=== PATIENT | male | born 1935 | race Caucasian/White ===

== ENCOUNTER → 2019-05-12 | Outpatient (CLI) | payer MEDICARE, OTHER, SELFPAY | PROVIDERS: Family Provider Family Medicine; Visit Provider Urology | DX: Z96.0 Presence of urogenital implants (principal) | CPT/HCPCS: 74018 ==

== ENCOUNTER 2019-05-14 11:26 | Day surgery (SDC) | payer MEDICARE, OTHER, SELFPAY ==
[2019-05-13 08:53] VITALS: BMI 22.6
--- NOTE | 2019-05-14 | SCC_ITS ---
Procedure Done: Cystoscopy, bilateral ureteral stent exchange Implants: 8 Fijian by 28 cm double-pigtail ureteral stents Specimens removed/disposition: Ureteral stents 29.5 seconds of fluoroscopic guidance, for a cumulative dose of 5.94 mGy, was provided to Dr. Tolbert by the radiology department. C-arm images of the abdomen were saved for the patient's permanent record. [facility]
--- NOTE | 2019-05-14 12:56 | ANES.PREANES ---
Pre-Anesthetic Assessment Pre-Anesthetic Assessment: Height/Weight: Height 1.78 m Weight 71.668 kg Proposed Procedure: Operation Date: 05/14/19 13:00 Proposed Procedures p Cystoscopy(Not Applicable) - Johnathon Tolbert MD s Ureteral Stent Exchange(Bilateral) - Johnathon Tolbert MD Last intake: Intake Last Liquid Date 05/14/19 Last Liquid Time 07:00 Last Solid Date 05/13/19 Last Solid Time 17:30 Social: Social History: No alcohol and No tobacco Exam: Pre-Anes Outpt Exam: alert, oriented x 3, clear to auscultation bilaterally and regular rate & rhythm Airway: Submandibular: WNL Cervical ROM: WNL MP: 1 Additional comments: teeth poor Pulmonary: Pulmonary: CHILD CV/HEM: Comments: AVR ascending aortic aneurisum : : Chronic renal Insufficiency Hepatic: Hepatic: None reported GI: GI: GERD Metabolic: Metabolic: Hyperlipidemia Musc/skel: Musc/skel: OA/DJD Neuropsych: Neuropsych: Anxiety, Depression and TIA Anesthetic Plan: ASA status: IV Anesthesia: Anesthesia Evaluation and General Risk of > 500 ml blood loss (7ml/kg in children): No PFSH Anesthesia PFSH: Medical History (Updated 05/14/19 @ 12:58 by Keyon Cifuentes MD) Abdominal aortic aneurysm (AAA) (Acute) Acute renal failure (Acute) Anemia (Acute) Aneurysm (Acute) Aortic regurgitation (Acute) Bacteremia (Acute) Bilateral ureteral obstruction (Acute) Bladder outlet obstruction (Acute) Carotid arterial disease (Acute) Carpal tunnel syndrome (Acute) Chest pain (Acute) Chronic cystitis (Acute) Chronic kidney disease (CKD) (Acute) Chronic neck pain (Acute) Chronic neck pain with history of cervical spinal surgery (Acute) Chronic UTI (urinary tract infection) (Acute) COPD (chronic obstructive pulmonary disease) (Acute) CVA (cerebral vascular accident) (Acute) Dyslipidemia (Acute) Dyspnea on effort (Acute) Gastroesophageal reflux (Acute) History of rib fracture (Acute) Hypertension (Acute) Malaise (Acute) Osteoarthritis (Acute) Peripheral vascular disease (Acute) Renal artery stenosis (Acute) Sepsis (Acute) Status post endoscopic repair of thoracic aortic aneurysm (TAA) (Acute) Superior mesenteric artery stenosis (Acute) Syncope (Acute) TIA (transient ischemic attack) (Acute) Surgical History (Updated 05/14/19 @ 12:58 by Keyon Cifuentes MD) H/O aortic valve replacement (Acute) H/O endarterectomy (Acute) H/O rotator cuff surgery (Acute) History of aortic valve replacement with bioprosthetic valve (Acute) History of carotid endarterectomy (Acute) History of cataract extraction (Acute) History of endovascular stent graft for abdominal aortic aneurysm (AAA) (Acute) History of ureter stent (Acute) Hx of appendectomy (Acute) Hx of transurethral resection of prostate (Acute) Family History (Updated 05/13/19 @ 08:52 by Ayla Pascual) Father Heart attack CAD (coronary artery disease) Social History (Updated 05/13/19 @ 08:52 by Ayla Pascual) Smoking and tobacco status: former smoker Quit status (tobacco): has quit using tobacco Alcohol intake: never Substance/Drug Use: never Data Anesthesia Cardiac Studies: No Data to Display
[2019-05-14 13:08] VITALS: BP 157/100; PULSE 63; RESP 20; TEMP 36.8; O2SAT 97
[2019-05-14] MEDS: sodium chloride 0.9% 1,000 ML 30 ML IV (13:19)
--- NOTE | 2019-05-14 13:20 | PM.OP ---
Operative Report Post-Operative Note: Date of procedure: 05/14/19 Preop Diagnosis: Bilateral ureteral obstruction Post-op diagnosis: same Post-op Findings: Stents changed without difficulty Procedure Done: Cystoscopy, bilateral ureteral stent exchange Implants: 8 Jordanian by 28 cm double-pigtail ureteral stents Specimens removed/disposition: Ureteral stents Pathology: none sent Surgeon: Johnathon Tolbert Anesthesia: MAC Estimated blood loss (mL): 0 Complications: None Findings: No severe encrustation Stent removed without difficulty Condition: stable Disposition: PACU Operative Report: Brief History: 83-year-old white male with 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 Has elected to continue chronic indwelling ureteral stents as long-term management protocol Procedure: After routine preoperative evaluation examination and obtaining of informed consent he was taken to the operating suite on 05/14/2019 where MAC was administered without difficulty. Prepped and draped in usual sterile fashion in dorsolithotomy position pain careful attention to avoiding pressure points. 21 Jordanian cystoscope with 30 degree lens was introduced into the urethral meatus. Bladder was systematically examined. Stents were in expected position. No severe encrustation. Grasping forceps were then utilized to remove the stents after passing of a flexible guidewire next to each stent sequentially. Each stent was replaced with similar size 8 Jordanian by 28 cm double-pigtail stent without difficulty. Bladder drained and procedure completed. Tolerated procedure well without complications and was awakened in the operating room and returned recovery in stable condition. PLANS: 1. Follow-up in about 3 months with [facility]. Sooner for concerns regarding stent function. Coding Level of Care Code Acute Art Therapy Certified Supervisor for Bia Reynoso
[2019-05-14 13:22] LABS: Basophils % 0.4 %; Eosinophils # 0.2 10^3/uL (0.0-0.8); Eosinophils % 3.5 %; Hematocrit 34.3 % (42.0-52.0); Hemoglobin 9.7 g/dL (11.7-16.6); Lymphocytes # 1.3 10^3/uL (0.8-4.8); Lymphocytes % 19.4 %; Mean Corpuscular HGB Conc 28.3 g/dL (30.0-36.0); Mean Corpuscular Hemoglobin 22.1 pg (28.0-34.0); Mean Corpuscular Volume 78.3 fL (80-94); Monocytes # 0.7 10^3/uL (0.2-0.9); Monocytes % 9.9 %; Neutrophils # 4.6 10^3/uL (1.8-7.7); Neutrophils % 66.5 %; Nucleated Red Blood Cells % 0 %; Platelet Count 264 10^3/cmm (130-400); Red Blood Count 4.38 10^6/uL (4.1-5.3); Red Cell Distribution Width 16.9 % (12.1-15.1); White Blood Count 6.9 10^3/uL (4.0-10.0)
[2019-05-14] MEDS: levofloxacin-dextrose 5 % 500 MG/100 ML PREMIX 100 MG IV (13:25)
--- NOTE | 2019-05-14 13:34 | SC_ITS ---
WS: [id number] Operating room ureteral stent placement, 2 views, 05/14/2019 Clinical Data: STENT PLACEMENT Comparison: [facility], 05/12/2019. Fluoroscopy time: 29.5 seconds Findings: The ureteral stents appear to be in the region of the renal pelves. The extensive aorto iliac stent i s again noted. Vertebroplasty at T12 is seen again. SC/C-arm FL for Urology Impression: Satisfactory placement of ureteral stents.
[2019-05-14 13:43] LABS: Alanine Aminotransferase 8 U/L (0-41); Albumin Level 4.5 g/dL (3.5-5.2); Alkaline Phosphatase 89 IU/L (40-130); Anion Gap 14.8 (5-19); Aspartate Amino Transferase 17 U/L (0-40); Blood Urea Nitrogen 23 mg/dL (8-23); Calcium 9.6 mg/Dl (8.8-10.2); Carbon Dioxide 23 mmol/L (22-29); Chloride 104 mmol/L (98-107); Globulin 2.7 g/dL (1.3-4.6); Glucose 88 mg/dL (74-106); Potassium 4.8 mmol/L (3.5-5.1); Sodium 137 mmol/L (136-145); Total Bilirubin 0.3 mg/dL (0.15-1.2); Total Protein 7.2 g/dL (6.6-8.7)
[2019-05-14 13:56] VITALS: BP 112/60; PULSE 66; RESP 18; TEMP 36.4; O2SAT 96
[2019-05-14 14:20] VITALS: BP 157/86; PULSE 64; RESP 18; TEMP 36.4; O2SAT 96
== END 2019-05-14 14:55 | disposition home or self-care (01) ==
PROVIDERS: Anesthesiology; Family Provider Family Medicine; PCP Urology; Visit Provider Urology
PROC: 0TJB8ZZ Inspection of Bladder, Via Natural or Artificial Opening Endoscopic (ICD-10-PCS; CPT 52000; principal; 2019-05-14 13:00)
PROC: (CPT 52332; 2019-05-14 13:00)
DX: N13.5 Crossing vessel and stricture of ureter without hydronephrosis (principal); K21.9 Gastro-esophageal reflux disease without esophagitis; E78.5 Hyperlipidemia, unspecified; M19.90 Unspecified osteoarthritis, unspecified site; Z86.73 Personal history of transient ischemic attack (TIA), and cerebral infarction without residual deficits; I12.9 Hypertensive chronic kidney disease with stage 1 through stage 4 chronic kidney disease, or unspecified chronic kidney disease; N18.9 Chronic kidney disease, unspecified; Z82.49 Family history of ischemic heart disease and other diseases of the circulatory system; Z87.891 Personal history of nicotine dependence
CPT/HCPCS: 52332; 36415; 76000; 80053; 85025; C2625; J1956; J2001; J2704; J3010; J7030

== ENCOUNTER 2019-07-14 09:37 | Outpatient (CLI) | payer MEDICARE, OTHER, SELFPAY ==
[2019-07-14 10:14] LABS: Basophils % 0.5 %; Eosinophils # 0.3 10^3/uL (0.0-0.8); Eosinophils % 5.1 %; Hematocrit 36.9 % (42.0-52.0); Hemoglobin 10.6 g/dL (11.7-16.6); Lymphocytes # 1.3 10^3/uL (0.8-4.8); Lymphocytes % 21.7 %; Mean Corpuscular HGB Conc 28.7 g/dL (30.0-36.0); Mean Corpuscular Volume 76.7 fL (80-94); Mean Platelet Volume 9.7 fL (7.4-10.4); Monocytes # 0.6 10^3/uL (0.2-0.9); Monocytes % 9.6 %; Neutrophils # 3.8 10^3/uL (1.8-7.7); Neutrophils % 62.9 %; Nucleated Red Blood Cells % 0 %; Platelet Count 263 10^3/cmm (130-400); Red Blood Count 4.81 10^6/uL (4.1-5.3); Red Cell Distribution Width 18.4 % (12.1-15.1); White Blood Count 6.1 10^3/uL (4.0-10.0)
[2019-07-14 10:19] LABS: Add Urine Microscopic? YES; Bilirubin Urine Neg (NEGATIVE); Blood Urine 3+ (Negative); Glucose Urine UA Norm (Normal); Ketones Urine Negative (Negative); Leukocyte Esterase Urine 2+ (Negative); Nitrate Urine Negative (Negative); Protein Urine 1+ (Negative); Urine Appearance Cloudy (CLEAR); Urine Color Yellow (Yellow); Urobilinogen Urine Norm (Negative)
[2019-07-14 10:29] LABS: Add Urine Culture? Yes; Bacteria Urine 1+; RBC Urine 50-80 /hpf (0-2); Squamous Epithelial Cell Urine 0-4 (0-5); WBC Urine >100 /hpf (0-5)
[2019-07-14 10:41] LABS: Creatinine Urine, Random 80 mg/dL (39-259)
[2019-07-14 10:54] LABS: Microalbumin Random Urine 39 ug/dL (0-20)
[2019-07-14 11:04] LABS: Calcium 9.9 mg/dL (8.5-10.5); Parathyroid Hormone 29.5 pg/mL (15-65)
[2019-07-14 11:15] LABS: Anion Gap 15.6 (5-19); Blood Urea Nitrogen 19 mg/dL (8-23); Calcium 10.4 mg/dL (8.5-10.5); Carbon Dioxide 26 mmol/L (22-29); Chloride 102 mmol/L (98-107); Glucose 103 mg/dL (65-115); Phosphorus 4.1 mg/dL (2.5-4.5); Potassium 4.6 mmol/L (3.5-5.1); Sodium 139 mmol/L (136-145)
[2019-07-14 11:24] LABS: Microalbum Creatinine Ratio Ur 488 mg/dL (0-20)
== END 2019-07-14 09:38 | disposition home or self-care (01) ==
LOC: LAB 09:47
PROVIDERS: Family Provider Family Medicine; PCP Internal Medicine Cardiovascular Disease; Visit Provider Internal Medicine Nephrology
DX: N18.3 Chronic kidney disease, stage 3 (moderate) (principal)
CPT/HCPCS: 36415; 80069; 81001; 82044; 82310; 83970; 85025

== ENCOUNTER 2019-08-04 10:06 | Outpatient (CLI) | payer MEDICARE, OTHER, SELFPAY ==
--- NOTE | 2019-08-04 10:30 | CT_ITS ---
WS: [id number] CT angiogram of chest, abdomen and pelvis. HISTORY: Thoracic aneurysm and abdominal aortic aneurysm evaluations. TECHNIQUE: CT angiogram is performed through the chest, abdomen and pelvis. Sagittal and coronal refo rmats have been submitted. MIP imaging also reviewed. All CT scans at [facility] use at l east one of these dose optimization techniques: automated exposure control; mA and/or kV adjustment p er patient size (includes targeted exams where dose is matched to clinical indication); or iterative reconstruction. Contrast: Visipaque 95 cc IV. DLP: 3210.08 mGycm COMPARISON: 07/25/2018 and 01/27/2018 Chest CTA: Pre and postcontrast imaging is submitted. Stable aneurysmal dilatation of the ascending t horacic aorta 5.4 cm. Calcification is not contiguous in the wall. Prior aortic valve replacement. Th rough the aortic arch the aneurysm returns to a normal caliber. Transverse diameter level of the luciana na is 3.0 cm. No dissection. Extensive intimal thickening and calcification through the descending ao rta. Moderate calcification at the origin of the great vessels. Heart size remains normal. No pericar dial or pleural effusion. Prior median sternotomy. Mediastinal and hilar subcentimeter lymph nodes are stable. Pulmonary artery size is normal. Chronic emphysema with no pneumonia. Linear areas of atelectasis in the lower lung f ields bilaterally with some very mild stable groundglass attenuation and endobronchial thickening. Pl ate and screw fixation of multiple contiguous rib fractures on the LEFT. Abdomen/pelvis CTA: Endovascular stent grafting of the abdominal aortic aneurysm begins at the level of the SMA and extends into the iliac arteries bilaterally. Maximum transverse diameter of the modoc aneurysm is 7.3 cm which is similar to the prior study. There is good contrast enhancement throughou t the stent. No endovascular leak is appreciated. Distal to the iliac stents atherosclerotic changes to the iliac and proximal femoral arteries are stable. Stable hepatic and renal cysts. No solid hepatic mass or biliary dilatation. Gallbladder is slightly lobulated probably contains stones. Normal size spleen. Negative pancreas and adrenal glands. Bilater al ureteral stents. Mild persistent dilatation of the renal pelvis. Severe atrophy of the LEFT kidney with multiple acquired cysts. Several cysts are present in the RIGHT kidney also. There is thickenin g and mild enhancement at the RIGHT renal pelvis and proximal ureter. Enhancement and soft tissue thi ckening extends to the proximal ureter appears progressed since the prior study. Ureteral stents are coiled in the urinary bladder. Mild thickening of the urinary bladder wall similar to the prior study . Colonic diverticulosis. No GI tract obstruction. No adenopathy appreciated. CT/CT angio chest abdomen pelvis IMPRESSION: 1. Stable moderate ascending thoracic aortic aneurysm with a maximum diameter of 5.4 cm. No progression since 07/25/2018. 2. Status post endovascular stent grafting of abdominal aortic and proximal il iac arteries is stable. No endovascular leak or increase in size of the modoc aneurysm. 3. Bilateral ureteral stents remain in good position. There is continued and slightly progressive soft tissue thickening in the RIGHT renal pelvis and proxi mal ureter which could be infectious. Mild persistent hydronephrosis. 4. Diffuse urinary bladder wall thickening is similar to prior studies. 5. Hepatic and renal cysts. 6. Severe atrophy LEFT kidney.
[2019-08-04] MEDS: iodixanol 320 mg/mL 100mL Btl IV (11:22)
== END 2019-08-04 10:07 | disposition home or self-care (01) ==
PROVIDERS: Family Provider Family Medicine; PCP Internal Medicine Cardiovascular Disease; Visit Provider Internal Medicine Cardiovascular Disease
DX: I71.4 Abdominal aortic aneurysm, without rupture (principal); K76.89 Other specified diseases of liver; N28.1 Cyst of kidney, acquired; N26.1 Atrophy of kidney (terminal)
CPT/HCPCS: 71275; 74174; Q9967

== ENCOUNTER 2019-09-09 10:37 | Outpatient (CLI) | payer MEDICARE, OTHER, SELFPAY ==
--- NOTE | 2019-09-09 10:30 | XR_ITS ---
WS: [id number] ABDOMEN 1 VIEW(S) HISTORY: RENAL ARTERY STENOSIS COMPARISON: None available. Normal bowel gas pattern. Bilateral ureteral stents have been placed in good position. No calcifications along the course of th e stents. Degenerative changes in the spine. Prior extensive aortic stent grafting. Prior T12 kyphoplasty. XR/XR KUB [id number] IMPRESSION: Bilateral ureteral stents have been placed in good position.
== END 2019-09-09 10:38 | disposition home or self-care (01) ==
LOC: RAD 10:42
PROVIDERS: Family Provider Family Medicine; PCP Family Medicine; Visit Provider Urology
DX: I70.1 Atherosclerosis of renal artery (principal); N39.0 Urinary tract infection, site not specified; Z96.0 Presence of urogenital implants
CPT/HCPCS: 74018; 80053; 81001

== ENCOUNTER 2019-11-02 10:45 | Outpatient (CLI) | payer MEDICARE, OTHER, SELFPAY ==
--- NOTE | 2019-11-02 10:15 | XRR_ITS ---
PROCEDURE INFORMATION: Exam: XR Abdomen, 1 View Exam date and time: 11/02/2019 11:09 AM Age: 84 years old Clinical indication: Condition or disease; Kidney or ureter condition; Other: Ureteral obstruction; Prior surgery; Surgery type: Rib, aneurysm, kidney stents TECHNIQUE: Imaging protocol: XR of the abdomen. Views: Frontal supine view of the abdomen. 1 View. COMPARISON: No relevant prior studies available. FINDINGS: Tubes, catheters and devices: Bilateral double-J catheters. Gastrointestinal tract: Prominent stool . Vasculature: Endoluminal stent graft. Prominent vascular calcification. Bones/joints: Degenerative change. L1 vertebral plasty. Other: If urolithiasis is of clinical concern, CT may be of benefit for further evaluation. XR/XR KUB [id number] IMPRESSION: 1. Bilateral double-J catheters. 2. Additional findings as described above.
== END 2019-11-02 10:46 | disposition home or self-care (01) ==
LOC: RAD 10:51
PROVIDERS: PCP Family Medicine; Visit Provider Urology
DX: N13.5 Crossing vessel and stricture of ureter without hydronephrosis (principal); Z96.0 Presence of urogenital implants
CPT/HCPCS: 74018; 80053; 81001

== ENCOUNTER 2019-11-09 11:33 | Day surgery (SDC) | payer MEDICARE, OTHER, SELFPAY ==
[2019-11-05 09:37] VITALS: BMI 23.9
--- NOTE | 2019-11-05 09:42 | ECG_ITS ---
[facility] ED Test Date: 2019-11-05 Pat Name: Sher Monroy Department: Room: Gender: Male Resident Service Coordinator: : 1935 Requested By: Johnathon Tolbert Order Number: [id number] Erasto MD: Joseph Tavarez M.D. Measurements Intervals [place] Rate: 58 P: 0 CO: 155 QRS: -17 QRSD: 98 T: 89 QT: 430 QTc: 424 Interpretive Statements SINUS BRADYCARDIA SEPTAL MYOCARDIAL INFARCTION [40+ ms Q WAVE IN V1/V2], OF INDETERMINATE AGE Compared to ECG 11/04/2018 11:47:21 Myocardial infarct finding now present Sinus rhythm no longer present Electronically Signed On 11-05-2019 21:14:32 CDT by Joseph Tavarez M.D. [id number]
--- NOTE | 2019-11-05 10:13 | ANES.PREANE2 ---
Pre-Anesthetic Assessment Pre-Anesthetic Assessment: Height/Weight: Height 1.78 m Weight 75.75 kg Preop Diagnosis: Bilateral ureteral obstruction Proposed Procedure: Operation Date: 11/09/19 13:15 Proposed Procedures p Cystoscopy 44263 N13.5(Not Applicable) - Johnathon Tolbert MD s Ureteral Stent Exchange(Bilateral) - Johnathon Tolbert MD Social: Social History: Tobacco (quit 2009) and No alcohol Exam: Pre-Anes Outpt Exam: alert, oriented x 3, clear to auscultation bilaterally and regular rate & rhythm Airway: Submandibular: WNL Cervical ROM: WNL MP: 2 Dentition: Other (teeth ok) History/ROS: No significant history except as noted Pulmonary: Pulmonary: COPD, CHILD and Sleep apnea CV/HEM: CV/HEM: CAD, CHF, HTN, ID and PVD : : Chronic renal Insufficiency Hepatic: Hepatic: None reported GI: GI: GERD (occ) Metabolic: Metabolic: Hyperlipidemia Musc/skel: Musc/skel: Lower Back Pain and OA/DJD Neuropsych: Neuropsych: Anxiety, CVA (mult TIA), Depression and Syncope (unknown case) Anesthetic Plan: ASA status: 4 Anesthesia: Anesthesia Evaluation and General Risk of > 500 ml blood loss (7ml/kg in children): No PFSH Anesthesia PFSH: Medical History Abdominal aortic aneurysm (AAA) Acute renal failure Anemia Aneurysm Aortic regurgitation Bacteremia Bilateral ureteral obstruction Bladder outlet obstruction Carotid arterial disease Carpal tunnel syndrome Chest pain Chronic cystitis Chronic kidney disease (CKD) Chronic neck pain Chronic neck pain with history of cervical spinal surgery Chronic UTI (urinary tract infection) COPD (chronic obstructive pulmonary disease) CVA (cerebral vascular accident) Dyslipidemia Dyspnea on effort Gastroesophageal reflux History of rib fracture Hypertension Malaise Osteoarthritis Peripheral vascular disease Renal artery stenosis Sepsis 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 Syncope TIA (transient ischemic attack) Surgical History H/O aortic valve replacement H/O endarterectomy H/O rotator cuff surgery History of aortic valve replacement with bioprosthetic valve History of carotid endarterectomy History of cataract extraction History of endovascular stent graft for abdominal aortic aneurysm (AAA) History of ureter stent Hx of appendectomy Hx of transurethral resection of prostate Family History Father Heart attack CAD (coronary artery disease) Social History Smoking and tobacco status: former smoker Quit status (tobacco): has quit using tobacco Alcohol intake: never Lives independently: Yes Household members: spouse Marital status: service: No Current occupational status: retired Current gender identity: Male Zohra/Restorationism: [employer] Data Anesthesia Cardiac Studies: No Data to Display
--- NOTE | 2019-11-09 | SCC_ITS ---
Procedure Done: Cystoscopy, exchange bilateral ureteral stents (8 Occitan by 30 cm double-pigtail) 23.1 seconds of fluoroscopic guidance, for a cumulative dose of 5.41 mGy, was provided to Dr. Tolbert by the radiology department. C-arm images of the abdomen were saved for the patient's permanent record. [facility]
[2019-11-09 11:59] VITALS: BP 170/110; PULSE 65; RESP 16; TEMP 36.6; O2SAT 95
[2019-11-09] MEDS: sodium chloride 0.9% 1,000 ML 30 ML IV (12:00)
--- NOTE | 2019-11-09 13:29 | P.ANESUD_ITS ---
Pre-Anesthetic Update Pre-Anesthetic Assessment: Date of Surgery/Procedure: 11/09/19 Preop Tamara gnosis: Bilateral ureteral obstruction Proposed Procedure: Operation Date: 11/09/19 14:25 Proposed Procedures p Cystoscopy 04600 N13.5(Not Applicable) - Johnathon Tolbert MD s Ureteral Stent Exchange(Bilateral) - Johnathon Tolbert MD Any changes to Pre-Anesthetic Assessment?: No Last Intake: Intake Last Liquid Date 11/09/19 Last Liquid Time 07:00 Last Solid Date 11/08/19 Last Solid Time 17:30 Vitals: Temperature 97.8 F 11/09/19 11:59 Temperature Source Temporal Artery S can 11/09/19 11:59 Pulse Rate 65 11/09/19 11:59 Respiratory Rate 16 11/09/19 11:59 Blood Pressure 170/110 11/09/19 11:59 Blood Pressure Kayla n 130 11/09/19 11:59 Pulse Oximetry 95 11/09/19 11:59 Oxygen Delivery Me thod 11/09/19 11:59 Exam: Pre-Anes Outpt Exam: alert, oriented x 3, clear to auscultation bilaterally and regular rate & rhythm Cardiac Studies: No Data to Display
--- NOTE | 2019-11-09 13:38 | W.PM.OPSUD ---
Surgery/Procedure H&P Update DATE OF PROCEDURE: November 09, 2019 DATE H&P PERFORMED: 11/02/19 H&P UPDATE INFORMATION: I have reviewed H&P completed within last 30 days, No changes to prior documentation and [place] [facility] [place] indicated PREOP DIAGNOSIS: Bilateral ureteral obstruction PLANNED PROCEDURE: Operation Date: 11/09/19 14:25 Proposed Procedures p Cystoscopy 01913 N13.5(Not Applicable) - Johnathon Tolbert MD s Ureteral Stent Exchange(Bilateral) - Johnathon Tolbert MD
--- NOTE | 2019-11-09 14:16 | W.PM.OPSUD ---
Surgery/Procedure H&P Update DATE OF PROCEDURE: November 09, 2019 DATE H&P PERFORMED: 11/02/19 H&P UPDATE INFORMATION: I have reviewed H&P completed within last 30 days, Changes to prior documentation as noted here (Patient was seen by his family physician Dr. Peres since visit in my office. The patient states that he still not feeling very good he was deemed to be a reasonable candidate for his scheduled routine stent change.) and H&P is in [facility] [place] on date indicated PREOP DIAGNOSIS: Bilateral ureteral obstruction PLANNED PROCEDURE: Operation Date: 11/09/19 14:25 Proposed Procedures p Cystoscopy 94741 N13.5(Not Applicable) - Johnathon Tolbert MD s Ureteral Stent Exchange(Bilateral) - Johnathon Tolbert MD
--- NOTE | 2019-11-09 14:18 | PM.OP ---
Operative Report Date of procedure: November 09, 2019 Pre-op Diagnosis: Bilateral ureteral obstruction Post-op diagnosis: same Procedure Done: Cystoscopy, exchange bilateral ureteral stents (8 Malian by 30 cm double-pigtail) Specimens removed/disposition: Bilateral ureteral stents Pathology: none sent Surgeon: Didi Anesthesia: General Estimated blood loss: Minimal Urine output: Not measured Complications: None Findings: Stent removed without difficulty. Exchanged with similar size stents. Condition: stable Disposition: PACU Brief History: Mr. Monroy is a very pleasant 84-year-old white male with bilateral ureteral obstruction managed with chronic indwelling ureteral stents. Underlying problem felt to be retroperitoneal fibrosis. He was not deemed a good candidate for surgical repair due to his multiple comorbid underlying medical problems. You for routine stent change. Admitted now to outpatient surgery for that procedure. Procedure: After routine preoperative evaluation examination and obtaining of informed consent he was taken to the operating suite on 11/09/2019 where general anesthesia was administered without difficulty after appropriate timeout was performed, SCDs confirmed to be functioning, preoperative antibiotics administered, beta-ann protocol confirmed. Prepped and draped in usual sterile fashion in dorsolithotomy position pain careful attention to avoiding pressure points. 21 Malian cystoscope with 30 degree lens was introduced into the urethral meatus and advanced into the bladder under videoscopy. Bladder was systematically examined. The left ureteral stent was selected be removed first. A flexible tip guidewire was advanced up the right ureter next to the stent into appropriate position as confirmed via fluoroscopy. Stent was grasped with grasping forceps and carefully and slowly withdrawn under videoscopic monitoring with good uncurling of the proximal end. 7 Malian by 30 cm Optimum ureteral stent was then passed over the guidewire into appropriate position as confirmed via fluoroscopy and cystoscopy. Same procedure was performed on the RIGHT side with the same results and 8 Malian by 30 cm double-pigtail optimum stent replaced. After confirmation of appropriate drainage from the stents the bladder was drained and the procedure completed the procedure well without complications and was awakened in the operating room and returned to the recovery in stable condition. PLANS: 1. Follow-up in 3 months with [facility].
[2019-11-09] MEDS: levofloxacin-dextrose 5 % 500 MG/100 ML PREMIX 100 MG IV (14:31)
--- NOTE | 2019-11-09 14:39 | SC_ITS ---
WS: [id number] INTRAOPERATIVE TECHNIQUE: 3 Spot fluoroscopic images for intraoperative purposes. FLUOROSCOPY TIME: 23.1 seconds CLINICAL INFORMATION: intra-op COMPARISON: None. FINDINGS: Images obtained for intraoperative purposes. Proximal ureteral stent visualized. Aortic endograft. SC/C-arm FL for Urology IMPRESSION: Images obtained for intraoperative purposes.
[2019-11-09 15:16] VITALS: BP 129/71; PULSE 64; RESP 18; TEMP 36.2; O2SAT 96
[2019-11-09 15:40] VITALS: BP 170/89; PULSE 58; RESP 18; O2SAT 92
== END 2019-11-09 16:10 | disposition home or self-care (01) ==
PROVIDERS: PCP Family Medicine; Visit Provider Urology
PROC: 0TJB8ZZ Inspection of Bladder, Via Natural or Artificial Opening Endoscopic (ICD-10-PCS; CPT 52000; principal; 2019-11-09 14:25)
PROC: (CPT 52332; 2019-11-09 14:25)
DX: N13.5 Crossing vessel and stricture of ureter without hydronephrosis (principal); Z87.891 Personal history of nicotine dependence; J44.9 Chronic obstructive pulmonary disease, unspecified; I13.0 Hypertensive heart and chronic kidney disease with heart failure and stage 1 through stage 4 chronic kidney disease, or unspecified chronic kidney disease; N18.9 Chronic kidney disease, unspecified; I50.9 Heart failure, unspecified; I25.2 Old myocardial infarction; K21.9 Gastro-esophageal reflux disease without esophagitis; E78.5 Hyperlipidemia, unspecified; M19.90 Unspecified osteoarthritis, unspecified site; G47.30 Sleep apnea, unspecified
CPT/HCPCS: 52332; 12345; 76000; 93005; C2625; J1956; J2001; J2704; J3010; J7030

== ENCOUNTER 2019-11-24 12:35 | Outpatient (CLI) | payer MEDICARE, OTHER, SELFPAY ==
--- NOTE | 2019-11-24 14:01 | PFTS_ITS ---
Date of Study:11/24/19 Date of Dictation: MECHANICS: Forced vital capacity (FVC) is reduced. Forced expiratory volume in one second (FEV1) is reduced. FEV1/FVC is reduced. FLOW VOLUME LOOP: Reduced flow at all lung volumes with significant scooping. LUNG VOLUMES: Total lung capacity (TLC) is normal. Residual volume (RV) is increased. DIFFUSING CAPACITY FOR CARBON MONOXIDE: Severely reduced. INTERPRETATION: The pulmonary function tests are consistent with severe obstruction. There is significant postbronchodilator response. Lung volumes are consistent with air trapping. Gas exchange (DLCO) is severely reduced. MTDD
--- NOTE | 2019-11-24 14:01 | CT_ITS ---
WS: [id number] CT CERVICAL SPINE TECHNIQUE: Noncontrast CT of the cervical spine with coronal and sagittal reformatted images. CLINICAL INFORMATION: CERVICAL SPINAL STENOSIS/ATYPICAL HEADACHE COMPARISON: MRI August 29, 2018. DLP: 618.[address] scans at [facility] use at least one of these dose optimization techniques: automat ed exposure control; mA and/or kV adjustment per patient size (includes targeted exams where dose is matched to clinical indication); or iterative reconstruction. FINDINGS: Straightening with slight reversal of the normal cervical lordosis. Anterior interbody cervical fusio n C3-C6 with interbody fusion grafts. No evidence of hardware loosening. Alignment is unchanged since the prior examination. No high-grade central canal stenosis. Slight anterolisthesis C3 on C4, C4 on C5 and C5 on C6 is unchanged. Evidence of bony bridging beyond the confines of the interbody fusion g rafts. C2-C3: Moderate right and no significant left foraminal narrowing. Spinal canal is patent. Moderate r ight facet arthropathy. C3-C4: Postoperative changes anterior and interbody cervical fusion. Moderate bilateral bony foramina l narrowing with moderate facet arthropathy. Mild to moderate central canal stenosis. C4-C5: Postoperative changes anterior interbody cervical fusion. Osteophytic ridging. Moderate facet arthropathy. Mild bilateral bony foraminal narrowing. Spinal canal is patent. C5-C6: Anterior and interbody cervical fusion. Osteophytic ridging. Moderate bilateral bony foraminal narrowing. Mild central canal stenosis. Mild facet arthropathy. C6-C7: Anterior and interbody cervical fusion. Moderate right greater than left bilateral bony forami nal narrowing. Mild central canal stenosis. Mild facet arthropathy. C7-T1: Mild disc bulging with a shallow central protrusion. Mild central canal stenosis. Mild to mode rate bilateral bony foraminal narrowing. Visualized posterior nasopharynx: Normal. Prevertebral soft tissues: Normal. CT/CT cervical spin wo con* [id number] IMPRESSION: 1. Straightening with slight reversal normal cervical lordosis. Stable anterio r interbody cervical fusion C3-C6 with interbody fusion grafts. 2. No evidence of hardware loosening. 3. Alignment is unchanged since the prior MRI. 4. Evidence of bony bridging beyond the confines of the grafts. 5. Mild central canal stenosis and multilevel bony foraminal narrowing not si gnificantly changed described above.
--- NOTE | 2019-11-24 14:01 | CT_ITS ---
WS: [id number] CT CHEST TECHNIQUE: Noncontrast CT of the chest with coronal and sagittal reformatted images. CLINICAL INFORMATION: COUGH/DYSPNEA COMPARISON: CTA chest August 04, 2019, July 25, 2018, 9 17,018 DLP: 566.[address] scans at [facility] use at least one of these dose optimization techniques: automat ed exposure control; mA and/or kV adjustment per patient size (includes targeted exams where dose is matched to clinical indication); or iterative reconstruction. FINDINGS: Stable aneurysmal dilatation ascending thoracic aorta measuring 5.4 CM. This is unchanged since the p rior examination. Evidence of prior aortic valve replacement. Prior sternotomy. No evidence of intram ural hematoma. Coronary calcification. Moderate atheromatous disease descending thoracic aorta which is normal caliber. Partially visualized and endovascular stent graft in the upper abdominal aorta. Thyroid gland is normal. Numerous normal sized mediastinal lymph nodes likely reactive. No axillary l ymphadenopathy. Mild chronic emphysematous changes. Atelectasis in the lung bases. Subsegmental atele ctasis right lower lobe with chronic interstitial thickening similar to previous. No new infiltrates. Multiple partially visualized hepatic cysts appear stable. Cholelithiasis. Splenic granulomas. Adrena l glands are normal. Bilateral parapelvic cysts. Partially visualized right double-J ureteral stent. Prior postoperative changes plate and screw fixation left posterior rib fractures. Prior vertebropla sty changes T12. CT/CT chest wo con [id number] IMPRESSION: 1. Stable 5.4 cm ascending thoracic aortic aneurysm 2. Mild chronic emphysematous changes with subsegmental atelectasis and inters titial thickening in the right lower lobe. This is similar to August 04, 2019. N o new infiltrates. 3. Numerous normal sized anterior mediastinal and peribronchial lymph nodes un changed. 4. Coronary calcification. 5. Partially visualized endovascular graft in the upper abdominal aorta.
--- NOTE | 2019-11-24 14:20 | CT_ITS ---
WS: [id number] CT HEAD TECHNIQUE: Noncontrast CT of the head obtained from the skullbase to the vertex. CLINICAL INFORMATION: FALL/HEADACHE COMPARISON: CT September 20, 2016 and MRI DLP: 838.[address] scans at [facility] use at least one of these dose optimization techniques: automat ed exposure control; mA and/or kV adjustment per patient size (includes targeted exams where dose is matched to clinical indication); or iterative reconstruction. FINDINGS: No evidence of intracranial hemorrhage or mass effect. Ventricular system and basal cisterns are phillips nt. Moderate small vessel changes with moderate parenchymal volume loss. Chronic lacunar infarcts in the left caudate and left basal ganglia. No extra-axial fluid collections. No evidence of mass or mas s effect. Normal clark-white differentiation. Cavernous carotid calcification. Paranasal sinuses and mastoid air cells are well aerated. .Normal visualized soft tissues. CT/CT head wo con* [id number] IMPRESSION: 1. No evidence of intracranial hemorrhage or mass effect. 2. Moderate small vessel changes. Moderate parenchymal volume loss. 3. No acute intracranial findings.
== END 2019-11-24 12:36 | disposition home or self-care (01) ==
LOC: RT 12:36
PROVIDERS: PCP Family Medicine; Visit Provider Family Medicine
DX: R06.00 Dyspnea, unspecified (principal); J44.9 Chronic obstructive pulmonary disease, unspecified; R05 Cough; M48.02 Spinal stenosis, cervical region; R51 Headache; I71.2 Thoracic aortic aneurysm, without rupture; I25.10 Atherosclerotic heart disease of native coronary artery without angina pectoris
CPT/HCPCS: 70450; 71250; 72125; 94060; 94726; 94729; J7611

== ENCOUNTER 2019-12-21 08:53 | Day surgery (SDC) | payer MEDICARE, OTHER, SELFPAY ==
[2019-12-18 17:14] VITALS: BMI 23.6
[2019-12-21] VITALS (8 sets, daily range): BP systolic 138–207; BP diastolic 94–121; PULSE 64–74; RESP 18; TEMP 36.1–36.3; O2SAT 96–98
--- NOTE | 2019-12-21 09:08 | P.ANESASSM_ITS ---
Pre-Anesthetic Assessment Pre-Anesthetic Assessment: Height/Weight: Height 1.78 m Weight 74.843 kg Preop Diagnosis: Bilateral ureteral obstruction Proposed Procedure: Operation Date: 12/21/19 10:30 Proposed Procedures p Temporal Artery Biopsy 76999 R51(Bilateral) - Robbie Brink MD Familial anesthetic complications: no Was Beta Mack taken within 24 hours: Yes Last Intake: 00:00 Exam: Pre-Anes Outpt Exam: alert, clear to auscultation bilaterally and regular rate & rhythm Airway: Submandibular: WNL Cervical ROM: WNL MP: 1 Dentition: Chipped CV/HEM: CV/HEM: None reported : Comments: single kidney GI: GI: None reported Neuropsych: Comments: mildly confused Anesthetic Plan: ASA status: 3 Anesthesia: MAC Other Pertinent Information: present for interview PFSH Anesthesia PFSH: Medical History (Updated 12/18/19 @ 13:43 by Robbie Brink MD) Abdominal aortic aneurysm (AAA) Acute renal failure Anemia Aneurysm Aortic regurgitation Bilateral ureteral obstruction Bladder outlet obstruction Carotid arterial disease Carpal tunnel syndrome Chronic cystitis Chronic kidney disease (CKD) Chronic neck pain with history of cervical spinal surgery Chronic UTI (urinary tract infection) COPD (chronic obstructive pulmonary disease) CVA (cerebral vascular accident) Dyslipidemia Gastroesophageal reflux History of rib fracture Hypertension Osteoarthritis Peripheral vascular disease Renal artery stenosis Sepsis 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 TIA (transient ischemic attack) Surgical History (Updated 12/18/19 @ 13:43 by Robbie Brink MD) H/O aortic valve replacement H/O colonoscopy 2016 H/O endarterectomy H/O esophagogastroduodenoscopy 2016 H/O rotator cuff surgery History of aortic valve replacement with bioprosthetic valve History of carotid endarterectomy History of cataract extraction History of endovascular stent graft for abdominal aortic aneurysm (AAA) History of ureter stent Hx of appendectomy Hx of transurethral resection of prostate S/P decompression of ulnar nerve at elbow Family History Father Heart attack CAD (coronary artery disease) Denies family history of Anesthesia complication Bleeding disorder Social History Smoking and tobacco status: former smoker Quit status (tobacco): has quit using tobacco Year quit tobacco: 2006 - 1 PPD x 50 Years Alcohol intake: never Lives independently: Yes Household members: spouse Marital status: service: No Current occupational status: retired History of recent travel: No Current gender identity: Male [employer]: [employer] Data Anesthesia Cardiac Studies: No Data to Display
[2019-12-21] MEDS: sodium chloride 0.9% 1,000 ML 30 ML IV (09:43)
--- NOTE | 2019-12-21 10:20 | W.PM.OPSUD ---
Surgery/Procedure H&P Update DATE OF PROCEDURE: December 21, 2019 DATE H&P PERFORMED: 12/18/19 H&P UPDATE INFORMATION: I have reviewed H&P completed within last 30 days, I have examined patient prior to procedure and No changes to prior documentation PREOP DIAGNOSIS: Bilateral temporal headaches PLANNED PROCEDURE: Operation Date: 12/21/19 10:30 Proposed Procedures p Temporal Artery Biopsy [id number] R51(Bilateral) - Robbie Brink MD
[2019-12-21] MEDS: lidocaine 1% INJ 20 mL SUBCUT (10:56)
[2019-12-21] MEDS: hyDRALAzine 20 mg/mL INJ 1 mL 5 MG IVP (12:18)
--- NOTE | 2019-12-21 15:01 | PM.OP ---
Operative Report Date of procedure: December 21, 2019 Pre-op Diagnosis: Bilateral temporal headaches Post-op diagnosis: same Procedure Done: Bilateral superficial temporal artery biopsy Specimens removed/disposition: 1: Right temporal artery 2: Left temporal artery Surgeon: Robbie Brnik Anesthesia: MAC Condition: stable Disposition: PACU Procedure: The patient was taken to the operating room and the right temporal artery was marked using a Doppler and the hair overlying the markings were clipped. 5 mL of 1% lidocaine with 0.5% Marcaine was infiltrated around this area. Using a 15 blade the skin and subcutaneous tissue was divided until the temporoparietal fascia was identified. The temporoparietal fascia was opened using iris scissors and about a 3 cm segment of temporal artery was skeletonized. Small vascular clips were applied proximally and distally and the artery was divided and sent to pathology. Hemostasis ensured, subcutis tissue approximate using running 3-0 Vicryl suture and skin was closed using running subcuticular 4-0 Monocryl suture and Dermabond. The left temporal artery was marked using a Doppler and the hair overlying the markings were clipped. 5 mL of 1% lidocaine with 0.5% Marcaine was infiltrated around this area. Using a 15 blade the skin and subcutaneous tissue was divided until the temporoparietal fascia was identified. The temporoparietal fascia was opened using iris scissors and about a 3 cm segment of temporal artery was skeletonized. Small vascular clips were applied proximally and distally and the artery was divided and sent to pathology. Hemostasis ensured, subcutis tissue approximate using running 3-0 Vicryl suture and skin was closed using running subcuticular 4-0 Monocryl suture and Dermabond.
== END 2019-12-21 12:55 | disposition home or self-care (01) ==
PROVIDERS: PCP Family Medicine; Visit Provider Surgery
PROC: (CPT 37609; principal; 2019-12-21 10:30)
DX: R51 Headache (principal); J44.9 Chronic obstructive pulmonary disease, unspecified; E78.5 Hyperlipidemia, unspecified; K21.9 Gastro-esophageal reflux disease without esophagitis; M19.90 Unspecified osteoarthritis, unspecified site; Z86.73 Personal history of transient ischemic attack (TIA), and cerebral infarction without residual deficits; Z87.891 Personal history of nicotine dependence; Z79.82 Long term (current) use of aspirin; Z79.891 Long term (current) use of opiate analgesic; Z79.52 Long term (current) use of systemic steroids
CPT/HCPCS: 37609; 12345; 96374; J0360; J0690; J2704; J3490; J7030

== ENCOUNTER → 2019-12-22 11:19 | Outpatient (BNVA) | payer MEDICARE, OTHER, SELFPAY | PROVIDERS: PCP Family Medicine; Referring Provider Family Medicine; Visit Provider Dermatology | DX: D48.9 Neoplasm of uncertain behavior, unspecified (principal); L57.0 Actinic keratosis; D18.01 Hemangioma of skin and subcutaneous tissue; L82.1 Other seborrheic keratosis; Z98.890 Other specified postprocedural states | CPT/HCPCS: 11102; 11103; 17000; 17003; 88304; 88305; 99203; 99204 ==

== ENCOUNTER 2019-12-30 14:01 | Outpatient (CLI) | payer MEDICARE, OTHER, SELFPAY ==
--- NOTE | 2019-12-30 14:15 | USCV_ITS ---
Sher Monroy Age: 84 Gender: M : 1935 Exam Date: 12/30/2019 14:36 Ordering Phys: Yumiko Carl MD Technologist: Teresa Martinez Exam Location: [facility] [place] Indication: SHORT OF BREATH BP: / HR: 69 Rhythm: Sinus Technical Quality: Adequate MEASUREMENTS (Male / Female) Normal Values 2D ECHO LV Diastolic Diameter PLAX 2.9 cm 4.2 - 5.9 / 3.9 - 5.3 cm LV Systolic Diameter PLAX 1.7 cm IVS Diastolic Thickness 1.3 cm 0.6 - 1.0 / 0.6 - 0.9 cm IVS Systolic Thickness 2.0 cm LVPW Diastolic Thickness 1.1 cm 0.6 - 1.0 / 0.6 - 0.9 cm LVPW Systolic Thickness 1.8 cm LVOT Diameter 2.0 cm LV Ejection Fraction 2D Teich 75.5 % LV Ejection Fraction MOD 2C 74.4 % LV Ejection Fraction 2C AL 77.3 % LA Diameter 5.1 cm LA Width 2.2 cm LA Height 5.4 cm RA Width 3.2 cm RA Height 5.5 cm M-MODE Aortic Annulus Diameter 4.9 cm LA Ao Ratio MM 1.0 DOPPLER AV Peak Velocity 290.0 cm/s LVOT Peak Velocity 210.0 cm/s AV Area Cont Eq vti 2.8 cm squared AV Area Cont Eq pk 2.3 cm squared MV Peak Velocity 150.0 cm/s MV Area PHT 2.2 cm squared Mitral E to A Ratio 0.6 MV E' Velocity 10.0 cm/s Mitral E to MV E' Ratio 9.5 Mitral E to LV E' Lateral Ratio 8.0 Mitral E to LV E' Septal Ratio 11.7 TR Peak Velocity 262.0 cm/s TR Peak Gradient 27.5 mmHg Right Atrial Pressure 3.0 mmHg Pulmonary Artery Systolic Pressu 30.5 mmHg PV Peak Velocity 126.0 cm/s RV Acceleration Time 0.1 s FINDINGS Left Ventricle Normal left ventricular size and systolic function, EF 75 %. Moderate left ventricular hypertrophy. No regional wall motion abnormalities. Grade I/IV diastolic dysfunction (abnormal relaxation filling pattern), normal to mildly elevated filling pressures. Right Ventricle Normal right ventricular size and systolic function. Right Atrium Mildly increased right atrial size. Left Atrium Mildly increased left atrial size. Mitral Valve Thickened mitral valve. Moderate to heavy mitral annular calcification. Aortic Valve Possible bioprosthetic valve the aortic position. Leaflets could not be visualized. Tricuspid Valve trace tricuspid valve regurgitation. Estimated pulmonary artery peak systolic pressure 31 mmHg Pulmonic Valve Not visualized well Pericardium No pericardial effusion. Aorta Plaque seen in the ascending aorta. CONCLUSIONS Normal left ventricular size and systolic function, EF 75 %. Moderate left ventricular hypertrophy. No regional wall motion abnormalities. Type I diastolic dysfunction. Mildly increased left atrial size. Possible bioprosthetic valve at the aortic position. Peak velocity across the valve was 2.9 m/s with a valve area of 2.8 cm2. Aortic valve leaflets could not be visualized. Trace tricuspid valve regurgitation. Estimated pulmonary artery peak systolic pressure 31 mmHg There is no pericardial effusion. There are no intracardiac masses. Comparison with the previous study is difficult because of the difference in the technical quality. Dr Shaq Robb MD FAC (Electronically Signed) Final Date: 30 December 2019 20:46 S
== END 2019-12-30 14:02 | disposition home or self-care (01) ==
LOC: RAD 14:05
PROVIDERS: PCP Family Medicine; Visit Provider Internal Medicine Critical Care Medicine
DX: R06.02 Shortness of breath (principal); I07.1 Rheumatic tricuspid insufficiency
CPT/HCPCS: 93306

== ENCOUNTER 2020-01-11 08:54 | Emergency (ER) | payer MEDICARE, OTHER, SELFPAY ==
[2020-01-11 08:59] VITALS: BP 153/88; PULSE 78; RESP 18; O2SAT 93; BMI 23.5
[2020-01-11 09:05] VITALS: BP 153/88; PULSE 71; RESP 18; O2SAT 96
--- NOTE | 2020-01-11 09:18 | CT_ITS ---
WS: [id number] CT HEAD NONCONTRAST HISTORY: fall, head trauma TECHNIQUE: Contiguous axial imaging performed through the brain in 2.5 mm imaging. Bone and soft tiss ue windows. Sagittal and coronal reformats reviewed. All CT scans at [facility] use at ast one of these dose optimization techniques: automated exposure control; mA and/or kV adjustment pe r patient size (includes targeted exams where dose is matched to clinical indication); or iterative r econstruction. DLP: 859.84 mGy.cm COMPARISON: 11/24/2019 No acute intracranial hemorrhage, midline shift or mass effect. Mild atrophy and severe chronic white matter ischemic disease. Prior lacunar infarct LEFT caudate hea d. Ventricles: Normal size with no hydrocephalus. Paranasal sinuses: As visualized are clear. Mastoid air cells: Well pneumatized. Calvarium and scalp: No skull fracture identified. Soft tissue laceration over the frontal bone with edema. Laceration extends to the calvarium. CT/CT head wo con* [id number] IMPRESSION: 1. No acute intracranial hemorrhage or edema. 2. Moderate to severe chronic microvascular ischemic changes are stable. 3. Extensive soft tissue hematoma with laceration centered over the frontal ramón ne.
--- NOTE | 2020-01-11 09:18 | ECG_ITS ---
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 Measurements Intervals [place] Rate: 68 P: 42 ND: 180 QRS: -18 QRSD: 100 T: 98 QT: 392 QTc: 419 Interpretive Statements SINUS RHYTHM ST DEVIATION AND MODERATE T-WAVE ABNORMALITY, CONSIDER LATERAL ISCHEMIA [-0.1+ mV T WAVE IN I/aVL/V5/V6] Compared to ECG 11/05/2019 10:07:36 T-wave abnormality now present Possible ischemia now present Sinus bradycardia no longer present Myocardial infarct finding no longer present Electronically Signed On 01-11-2020 23:41:59 CDT by Shaq Robb M.D. [id number]
--- NOTE | 2020-01-11 09:18 | CT_ITS ---
WS: [id number] CT CERVICAL SPINE HISTORY: neck pain TECHNIQUE: Contiguous 2.5 mm axial imaging performed through the entire cervical spine. Sagittal and coronal reformats also performed. All CT scans at [facility] use at least one of these do se optimization techniques: automated exposure control; mA and/or kV adjustment per patient size (inc ludes targeted exams where dose is matched to clinical indication); or iterative reconstruction. DLP: 569.07 mGy.cm COMPARISON: 11/24/2019 Marked reversal of normal cervical lordosis. Severe osteopenia. Anterior cervical fusion extends from C3 to C6. No evidence for hardware loosening or fracture. Anterolisthesis of C3, C4 and C5 is simila r to the prior examination. There is fusion across the C3-4, C4-5, C5-C6 disc spaces. Severe disc spa ce narrowing at C6-7. Craniocervical junction is normal. The odontoid process is intact. There is a c yst or lytic area at the base of the LEFT odontoid. C2-C3: Moderate facet joint arthropathy and osteophytic ridging. Severe RIGHT foraminal stenosis. C3-C4: Marked bilateral hypertrophic changes in the facet joints with severe bilateral foraminal sten osis. C4-C5: Bony hypertrophy is marked at the facet joints with osteophytic ridging. C5-C6: Osteophytic ridging with diffuse osteophytic ridging around the vertebral bodies. Mild central and bilateral foraminal stenosis. C6-C7: Diffuse osteophytic ridging and facet joint arthritis. Severe RIGHT with mild LEFT foraminal s tenosis. C7-T1: Mild foraminal narrowing. Soft tissues are normal. Lung apices are clear. CT/CT cervical spin wo con* [id number] IMPRESSION: 1. No acute cervical spine fracture. 2. Advanced degenerative changes throughout the cervical spine. 3. Marked reversal the normal cervical lordosis. 4. Anterior cervical fusion with interbody spacers from C3 to C6. 5. Chronic multilevel stenosis as above.
--- NOTE | 2020-01-11 09:20 | W.ED.FALL ---
HPI - Fall General: Chief Complaint: Fall Stated Complaint: FALL/HEAD LAC Time Seen by Provider: 01/11/20 08:58 History of Present Illness: HPI Narrative: 84-year-old male presents emergency room with complaint of fall with a head laceration. He stumbled and fell at home lost his balance and fell striking his forehead as he went down he did not lose consciousness he has a very large open laceration there is a small amount of bleeding. He is complaining of some neck pain but states that is chronic. Patient is not on any blood thinners, he relates his recent increased falls due to a increase in his prednisone which is subsequently been decreased. He does have some bruising around the right eye from a fall from last week. 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 MD complaint: fall Onset (ago): minute(s) Fall from: standing Fall witnessed: yes, by family Place fall occurred: home Loss of consciousness: None Prolonged down time: no Symptoms prior to fall: none Context: tripped/slipped Location of injury: head and face Severity: moderate Associated symptoms-after fall: Reports headache(s) and neck pain; Denies abdominal pain, chest pain, confusion, difficulty walking, hematuria, lightheadedness, numbness, short of breath, vertigo or weakness Review of Systems Const: Denies: fever(s), chills, body aches, change in appetite, fatigue or malaise ENMT: Denies: throat pain, ear or mastoid pain, nasal discharge or nasal congestion Card: Denies: chest pain or lightheadedness Resp: Denies: dyspnea, productive cough or non-productive cough GI: Denies: abdominal pain : Denies: hematuria Musc: Reports: neck pain Skin/Breast: Denies: rash or pruritus Neuro: Reports: headache(s); Denies: difficulty walking, vertigo or confusion PFS ED PFSH: Medical History (Updated 01/11/20 @ 12:19 by Dmitry Wells DO) Abdominal aortic aneurysm (AAA) Acute renal failure Anemia Aneurysm Aortic regurgitation Bilateral ureteral obstruction Bladder outlet obstruction Carotid arterial disease Carpal tunnel syndrome Chronic cystitis Chronic kidney disease (CKD) Chronic neck pain with history of cervical spinal surgery Chronic UTI (urinary tract infection) COPD (chronic obstructive pulmonary disease) CVA (cerebral vascular accident) Dyslipidemia Gastroesophageal reflux History of rib fracture Hypertension Osteoarthritis Peripheral vascular disease Renal artery stenosis Sepsis 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 TIA (transient ischemic attack) Surgical History H/O aortic valve replacement H/O colonoscopy 2016 H/O endarterectomy H/O esophagogastroduodenoscopy 2016 H/O rotator cuff surgery History of aortic valve replacement with bioprosthetic valve History of biopsy of temporal artery (12/21/19) History of carotid endarterectomy History of cataract extraction History of endovascular stent graft for abdominal aortic aneurysm (AAA) History of ureter stent Hx of appendectomy Hx of transurethral resection of prostate S/P decompression of ulnar nerve at elbow Family History Father Heart attack CAD (coronary artery disease) Denies family history of Anesthesia complication Bleeding disorder Social History Smoking and tobacco status: former smoker Quit status (tobacco): has quit using tobacco Year quit tobacco: 2006 PPD x 50 Years Alcohol intake: never Lives independently: Yes Household members: spouse Marital status: service: No Current occupational status: retired History of recent travel: No Current gender identity: Male Zohra/Religious: Voodoo Physical Exam Const: COMMON NORMALS: no acute distress GENERAL APPEARANCE: cooperative and comfortable ORIENTATION/CONSCIOUSNESS: Yes awake, Yes oriented to person, Yes oriented to place and Yes oriented to time HENMT: COMMON NORMALS: normocephalic, atraumatic, hearing grossly normal bilaterally, external ears normal, EAC's normal, TM's normal bilaterally, Normal nasal mucous membranes and turbinates present, moist oral mucous membranes and oropharynx normal HEAD & SCALP: normocephalic and atraumatic NOSE: Normal nasal mucous membranes and turbinates present EXTERNAL EAR: Yes external ears normal EXTERNAL AUDITORY CANAL: EAC's normal TYMPANIC MEMBRANE: TM's normal bilaterally Eye: COMMON NORMALS: Equal, round and reactive pupils present, EOMs intact bilaterally, conjunctivae normal and no scleral icterus CONJUNCTIVA: Yes conjunctivae normal PUPIL: Yes Equal, round and reactive pupils present Neck/C-Spine: COMMON NORMALS: full ROM, no lymphadenopathy, supple and no JVD Lymph: LYMPHATIC: no lymphadenopathy noted and no lymphedema noted Resp: COMMON NORMALS: normal respiratory effort, No retractions, No use of accessory muscles and clear to auscultation bilaterally AUSCULTATION: clear to auscultation bilaterally Cardio: COMMON NORMALS: no JVD, regular rate, regular rhythm and No murmurs present (Cardio) RATE: regular rate RHYTHM: regular rhythm GI: COMMON NORMALS: Soft to palpation and No hepatosplenomegaly present AUSCULTATION: Yes normoactive bowel sounds PALPATION: Yes Soft to palpation, No Tenderness to palpation present (GI), No Guarding due to palpation present (GI) and Yes No hepatosplenomegaly present Extremity: COMMON NORMALS: normal to inspection, capillary refill normal, no clubbing, cyanosis or edema, no calf tenderness and no pedal edema Neuro: SENSORIUM/ORIENTATION: Yes oriented to person, Yes oriented to place and Yes oriented to time Skin: COMMON NORMALS: no rashes or lesions noted GENERAL SKIN EXAM: no rashes or lesions noted Procedures Laceration Laceration 1: Site: face Size (cm): 20 Description: irregular Depth: simple, single layer Local Anesthetic: lidocaine 1% and with epi Pre-repair: wound explored and irrigated extensively Skin layer closed with: other (Prolene) Size (cm): 5-0 Technique: simple, interrupted Procedural Sedation Indication: laceration repair Preparation: desk monitor applied, pulse oximeter, suction/airway equipment at bedside and IV secured Midazolam: IV Midazolam dose (mg): 5 Patient Tolerated Procedure: well Complications: none Course Vital Signs: Vital signs: Vital Signs Pulse Rate 75 01/11/20 12:01 Respiratory Rate 14 01/11/20 12:01 Blood Pressure 178/108 01/11/20 12:01 Pulse Oximetry 97 01/11/20 12:01 MDM - Fall MDM Narrative: Medical decision making narrative: Regional sedation done by [facility]. Wound was then partially anesthetized lidocaine with epinephrine. Procedural sedation was done because of the size of the wound I did not think we could get adequate local anesthesia without using neurotoxic amounts of lidocaine. A combination of local and procedural sedation worked well patient tolerated well wound edges approximated well the bleeding was well controlled. Wound care instructions given return to the primary care doctor remove sutures in 7 days. Lab Data: Labs: Lab Results 01/11/20 01/11/20 Range/Units 09:57 09:57 WBC 10.0 (4.0-10.0) 10^3/ uL RBC 4.58 (4.1-5.3) 10^6/u L Hgb 10.4 L (11.7-16.6) g/dL Hct 35.8 L (42.0-52.0) % MCV 78.2 L (80-94) fL MCH 22.7 L (28.0-34.0) pg MCHC 29.1 L (30.0-36.0) g/dL RDW 18.9 H (12.1-15.1) % Plt Count 195 (130-400) 10^3/c mm MPV 9.2 (7.4-10.4) fL Neut % (Auto) 86.0 % Lymph % (Auto) 8.3 % [place] % (Auto) 4.6 % Eos % (Auto) 0.4 % Baso % (Auto) 0.1 % Neut # (Auto) 8.56 H (1.8-7.7) 10^3/u L Lymph # (Auto) 0.8 (0.8-4.8) 10^3/u L [place] # (Auto) 0.5 (0.2-0.9) 10^3/u L Eos # (Auto) 0.0 (0.0-0.8) 10^3/u L Baso # (Auto) 0.0 (0.0-0.1) 10^3/u L Nucleated RBC % (a uto) 0.2 % Nucleated RBCs # 0.0 /100WBC Sodium 138 (136-145) mmol/L Potassium 4.4 (3.5-5.1) mmol/L Chloride 105 (98-107) mmol/L Carbon Dioxide 23 (22-29) mmol/L Anion Gap 14.4 (5-19) BUN 35 H (8-23) mg/dL Creatinine 1.5 H (0.7-1.2) mg/dL GFR Calculation Not Reportable Glucose 146 H (65-115) mg/dL Calculated Osmolal ity 286 (285-295) mOsm/k g Calcium 8.6 (8.5-10.5) mg/dL Total Bilirubin 0.3 (0.15-1.2) mg/dL AST 13 (0-40) U/L ALT 17 (0-41) U/L Alkaline Phosphata se 45 (40-130) IU/L Total Protein 6.4 L (6.6-8.7) g/dL Albumin 3.7 (3.5-5.2) g/dL Globulin 2.7 (1.3-4.6) g/dL Discharge Plan Discharge Patient Disposition: Home Clinical Impression: Fall, Facial laceration Condition: Stable Prescriptions: New mupirocin 2 % ointment 1 applic TOPICAL DAILY Qty: 22 RF: 0 No Action prednisone 10 mg tablets,dose pack See Rx Instructions PO PER PKG DIR RF: 0 Anoro Ellipta 62.5-25 mcg/actuation blister with device 1 inh INHALATION Q24H 30 Days Qty: 60 RF: 3 albuterol sulfate 90 mcg/actuation HFA aerosol inhaler 2 puff INHALATION Q6H PRN (Reason: shortness of breath or wheezing) 30 Days Qty: 18 RF: 3 carvedilol 25 mg Tablet 25 mg PO BID RF: 0 aspirin [Aspir-81] 81 mg Tablet,Delayed Release (Dr/Ec) 81 mg PO DAILY RF: 0 alprazolam 0.5 mg Tablet 0.5 mg PO TID RF: 0 hydrocodone-acetaminophen [[place]] 7.5-325 mg Tablet 1 tab PO TID PRN (Reason: Pain) RF: 0 pantoprazole 40 mg Tablet,Delayed Release (Dr/Ec) 40 mg PO BID RF: 0 diphenhydramine-acetaminophen [Tylenol PM Extra Strength] 25-500 mg Tablet 1 tab PO BEDTIME PRN (Reason: Sleep) RF: 0 duloxetine [Cymbalta] 30 mg Capsule,Delayed Release(Dr/Ec) 30 mg PO DAILY RF: 0 polyethylene glycol 3350 17 gram Powder In Packet 17 g PO BEDTIME RF: 0 Discharge Orders: Discharge Order (Routine); Ordered 01/11/20 Ordered By: Dmitry Wells Referrals: Edwar Peres MD [Primary Care Provider] - Discharge Diet: Usual diet Discharge Activity: Increase activity as tolerated Activity Restrictions/Additional Instructions: Sutures to removed in 7 days. Use topical antibiotic on the wound once daily Discharge Date/Time: 01/11/20 12:43 Coding Level of Care Code ED Pharmacy Tech Customer Service for [facility] [place]
--- NOTE | 2020-01-11 09:22 | CT_ITS ---
WS: [id number] CT FACIAL BONES HISTORY: facial trauma after falls TECHNIQUE: Images obtained from the supraorbital location through the mandible. Soft tissue and bone windows are reviewed. Coronal and sagittal reformats have also been submitted. DLP: 804.[address] scans at [facility] use at least one of these dose optimization techniques: automat ed exposure control; mA and/or kV adjustment per patient size (includes targeted exams where dose is matched to clinical indication); or iterative reconstruction. COMPARISON: None available. No facial bone fractures are identified. Very mild deviation of the nasal bones to the LEFT may be no rmal for this patient. Zygomatic arches are intact. Frontal bone is normal. There is extensive soft t issue injury and laceration over the frontal bone. Laceration extends to the calvarium. There is a sm all amount of air tracking over the frontal bone. No air-fluid levels in the sinuses. Mucous retentio n cyst or inspissated material in the floor of the RIGHT maxillary sinus. There is artifact from the patient's dental amalgam. No mandible or maxillary fractures are appreciated. Extensive degenerative changes and postsurgical changes in the upper cervical spine. CT/CT facial bones wo con* [id number] IMPRESSION: 1. No facial bone fracture. 2. Extensive soft tissue injury with laceration and air centered over the RIGH T frontal bone. Laceration extends to the calvarium.
[2020-01-11] MEDS: HYDROcodone-acetaminophen 5-325 mg Tablet 1 TAB PO (09:47)
[2020-01-11] MEDS: tetanus-diphtheria tox (adult) 0.5 mL SDV IM (09:49)
[2020-01-11 10:04] LABS: Basophils % 0.1 %; Eosinophils % 0.4 %; Hematocrit 35.8 % (42.0-52.0); Hemoglobin 10.4 g/dL (11.7-16.6); Lymphocytes # 0.8 10^3/uL (0.8-4.8); Lymphocytes % 8.3 %; Mean Corpuscular HGB Conc 29.1 g/dL (30.0-36.0); Mean Corpuscular Hemoglobin 22.7 pg (28.0-34.0); Mean Corpuscular Volume 78.2 fL (80-94); Mean Platelet Volume 9.2 fL (7.4-10.4); Monocytes # 0.5 10^3/uL (0.2-0.9); Monocytes % 4.6 %; Neutrophils # 8.56 10^3/uL (1.8-7.7); Nucleated Red Blood Cells % 0.2 %; Platelet Count 195 10^3/cmm (130-400); Red Blood Count 4.58 10^6/uL (4.1-5.3); Red Cell Distribution Width 18.9 % (12.1-15.1)
[2020-01-11 10:13] VITALS: BP 142/85; PULSE 67; RESP 19; O2SAT 93
[2020-01-11 10:23] LABS: Alanine Aminotransferase 17 U/L (0-41); Albumin Level 3.7 g/dL (3.5-5.2); Alkaline Phosphatase 45 IU/L (40-130); Anion Gap 14.4 (5-19); Aspartate Amino Transferase 13 U/L (0-40); Blood Urea Nitrogen 35 mg/dL (8-23); Calcium 8.6 mg/dL (8.5-10.5); Carbon Dioxide 23 mmol/L (22-29); Chloride 105 mmol/L (98-107); Globulin 2.7 g/dL (1.3-4.6); Glucose 146 mg/dL (65-115); Osmolality Calculated 286 mOsm/kg (285-295); Potassium 4.4 mmol/L (3.5-5.1); Sodium 138 mmol/L (136-145); Total Bilirubin 0.3 mg/dL (0.15-1.2); Total Protein 6.4 g/dL (6.6-8.7)
[2020-01-11] MEDS: ceFAZolin 1,000 MG in sodium chloride 0.9% (plus) 50 ML 100 MG IV (10:43)
[2020-01-11 11:25] VITALS: BP 129/67; PULSE 65; RESP 18; O2SAT 98
[2020-01-11] MEDS: midazolam 1 mg/mL INJ 2 mL 5 MG IVP (11:30)
[2020-01-11 11:34] VITALS: BP 189/108; PULSE 72; RESP 18; O2SAT 100
[2020-01-11 12:01] VITALS: BP 178/108; PULSE 75; RESP 14; O2SAT 97
--- NOTE | 2020-01-11 12:38 | PC.NURSE ---
Read and agree with assessment.
== END 2020-01-11 12:43 | disposition home or self-care (01) ==
PROVIDERS: Emergency Provider Family Medicine; PCP Family Medicine
DX: S01.81XA Laceration without foreign body of other part of head, initial encounter (principal); Z79.82 Long term (current) use of aspirin; W01.10XA Fall on same level from slipping, tripping and stumbling with subsequent striking against unspecified object, initial encounter; J44.9 Chronic obstructive pulmonary disease, unspecified; Z86.73 Personal history of transient ischemic attack (TIA), and cerebral infarction without residual deficits; E78.5 Hyperlipidemia, unspecified; I10 Essential (primary) hypertension; Z87.891 Personal history of nicotine dependence; Z23 Encounter for immunization
CPT/HCPCS: 12016; 12345; 36415; 70450; 70486; 72125; 80053; 85025; 90471; 90714; 93005; 96365; 96375; 99283; 99284; J0690; J2250

== ENCOUNTER 2020-01-19 13:32 | Outpatient (CLI) | payer MEDICARE, OTHER, SELFPAY ==
[2020-01-19 13:59] LABS: Basophils % 0.1 %; Eosinophils % 0.1 %; Hematocrit 40.3 % (42.0-52.0); Hemoglobin 11.6 g/dL (11.7-16.6); Lymphocytes # 0.7 10^3/uL (0.8-4.8); Lymphocytes % 8.6 %; Mean Corpuscular HGB Conc 28.8 g/dL (30.0-36.0); Mean Corpuscular Hemoglobin 22.9 pg (28.0-34.0); Mean Corpuscular Volume 79.5 fL (80-94); Monocytes # 0.2 10^3/uL (0.2-0.9); Neutrophils # 7.42 10^3/uL (1.8-7.7); Neutrophils % 88.2 %; Nucleated Red Blood Cells % 0 %; Platelet Count 202 10^3/cmm (130-400); Red Blood Count 5.07 10^6/uL (4.1-5.3); Red Cell Distribution Width 19.7 % (12.1-15.1); White Blood Count 8.4 10^3/uL (4.0-10.0)
[2020-01-19 14:26] LABS: Albumin Level 4.1 g/dL (3.5-5.2); Anion Gap 14.1 (5-19); Blood Urea Nitrogen 36 mg/dL (8-23); Calcium 9.1 mg/dL (8.5-10.5); Carbon Dioxide 26 mmol/L (22-29); Chloride 104 mmol/L (98-107); Glucose 108 mg/dL (65-115); Iron 29 ug/dL (59-158); Percent Saturation 9.3 % (20-50); Phosphorus 4.1 mg/dL (2.5-4.5); Potassium 5.1 mmol/L (3.5-5.1); Sodium 139 mmol/L (136-145); Total Iron Binding Capacity 311 mcg/dl; Unsaturated Iron Binding 282 ug/dL (112-347)
[2020-01-19 14:52] LABS: Calcium 9.4 mg/dL (8.5-10.5); Parathyroid Hormone 80.9 pg/mL (15-65)
[2020-01-19 19:15] LABS: Creatinine Urine, Random 78 mg/dL (39-259); Microalbumin Random Urine 29 ug/dL (0-20)
[2020-01-19 19:23] LABS: Microalbum Creatinine Ratio Ur 372 mg/dL (0-20)
== END 2020-01-19 13:33 | disposition home or self-care (01) ==
LOC: LAB 13:36
PROVIDERS: PCP Family Medicine; Visit Provider Internal Medicine Nephrology
DX: N18.3 Chronic kidney disease, stage 3 (moderate) (principal)
CPT/HCPCS: 36415; 80069; 82044; 82310; 83540; 83550; 83970; 85025

== ENCOUNTER → 2020-02-01 08:45 | Outpatient (BNVA) | payer MEDICARE, OTHER, SELFPAY | PROVIDERS: PCP Family Medicine; Visit Provider Dermatology | DX: C44.319 Basal cell carcinoma of skin of other parts of face (principal); C44.91 Basal cell carcinoma of skin, unspecified; S01.81XA Laceration without foreign body of other part of head, initial encounter; X58.XXXA Exposure to other specified factors, initial encounter; L57.0 Actinic keratosis | CPT/HCPCS: 12051; 17000; 17003; 17311; 17312 ==

== ENCOUNTER 2020-02-09 07:25 | Outpatient (CLI) | payer MEDICARE, OTHER, SELFPAY ==
--- NOTE | 2020-02-09 07:15 | XRR_ITS ---
PROCEDURE INFORMATION: Exam: XR Abdomen, 1 View Exam date and time: 02/09/2020 7:44 AM Age: 84 years old Clinical indication: Condition or disease; Kidney or ureter condition; Calculus (stone) in ureter; Prior surgery; Surgery type: Abd aneurysm repair, renal stents; Additional info: Ureteral obstruction TECHNIQUE: Imaging protocol: XR of the abdomen. Views: Frontal supine view of the abdomen. 1 View. COMPARISON: CR XR KUB [id number] 11/02/2019 11:08 AM FINDINGS: Gastrointestinal tract: The bowel gas pattern is nonspecific. Air filled large bowel including distal rectal gas. Vasculature: Double-J ureteric stents bilaterally. The stent on the left is migrated distally and the proximal pigtail likely within the ureter. Aortal iliac stent graft. Bones/joints: Unremarkable. XR/XR KUB [id number] IMPRESSION: 1. Double-J ureteric stents bilaterally. The stent on the left has slightly migrated with the proximal pigtail likely within the proximal left ureter. 2. The bowel gas pattern is nonspecific. Air filled large bowel including distal rectal gas.
== END 2020-02-09 07:26 | disposition home or self-care (01) ==
LOC: RAD 07:30
PROVIDERS: PCP Family Medicine; Visit Provider Urology
DX: N13.5 Crossing vessel and stricture of ureter without hydronephrosis (principal); Z96.0 Presence of urogenital implants
CPT/HCPCS: 74018; 81001

== ENCOUNTER 2020-02-26 08:29 | Outpatient (CLI) | payer MEDICARE, OTHER, SELFPAY ==
--- NOTE | 2020-02-26 08:33 | MR_ITS ---
WS: [id number] MRI LUMBAR SPINE NONCONTRAST HISTORY: LUMBAR DISC DISEASE COMPARISON: 11/20/2017 TECHNIQUE: Sagittal and axial multisequence imaging is submitted. Advanced degenerative changes throughout the cervical and thoracic spine. Cervical fusion hardware is noted. As noted on prior examinations there are 6 lumbar type vertebral bodies. This same numbering pattern will be utilized on today's study as on the prior. Mild straightening of the normal lumbar lordosis. Prior L1 vertebroplasty. No acute fractures or boris ow edema. Conus terminates normally at L1-2 disc level. L1-L2: Normal. L2-L3: Diffuse broad-based disc bulging and annular osteophytic ridging. No significant stenosis. L3-L4: Diffuse annular disc bulging and osteophytic ridging. There is deformity and flattening of the thecal sac due to combination of facet and disc disease. Mild central and bilateral subarticular rec ess stenosis. Subarticular recess stenosis is more severe on the LEFT. There is only mild bilateral f oraminal narrowing. Similar appearance as compared to the prior study. L4-L5: Diffuse annular disc bulging and osteophytic ridging. Near complete effacement of CSF. Marked facet and ligamentum flavum hypertrophy. Severe central and bilateral subarticular recess stenosis an d lateral recess stenosis. Only mild narrowing of the foramen. L5-L6: Moderate annular disc bulging and facet arthritis. Increase fluid in the facet joints with lig amentum flavum hypertrophy. Moderate central with severe lateral recess and subarticular stenosis. Si milar to the prior study. L6-S1: No stenosis. There is a large abdominal aneurysm which is undergone prior endovascular grafting. Maximum transvers e diameter of 7.2 cm of the [place] aneurysm. No increase in size of the [place] aneurysm. Additional b ilateral renal cysts. MR/MR lumbar spine wo con* [id number] IMPRESSION: 1. Severe central, bilateral subarticular recess and lateral recess stenosis a t L4-5 is similar to the prior study. 2. Moderate central with severe lateral recess and subarticular recess stenosi s at L5-L6 which is stable. 3. Mild central and bilateral subarticular recess stenosis at L3-4. LEFT later al recess stenosis is more significant than the RIGHT. 4. Large [place] abdominal aortic aneurysm stable in size and status post endov ascular grafting. 5. Prior vertebroplasty L1.
== END 2020-02-26 08:30 | disposition home or self-care (01) ==
LOC: RADSHAW 08:32
PROVIDERS: PCP Family Medicine; Visit Provider Family Medicine
DX: M51.9 Unspecified thoracic, thoracolumbar and lumbosacral intervertebral disc disorder (principal); M48.061 Spinal stenosis, lumbar region without neurogenic claudication; I71.4 Abdominal aortic aneurysm, without rupture
CPT/HCPCS: 72148

== ENCOUNTER 2020-03-07 08:42 | Inpatient (IN) | payer MEDICARE, OTHER, SELFPAY ==
[2020-03-07] VITALS (11 sets, daily range): BP systolic 138–165; BP diastolic 84–93; PULSE 80–96; RESP 15–35; TEMP 36.9–37.2; O2SAT 89–96
--- NOTE | 2020-03-07 09:02 | XR_ITS ---
WS: [id number] PORTABLE CHEST HISTORY: cough/COVID symptoms COMPARISON: 06/15/2018 Prior CABG. Mild elevation of the RIGHT diaphragm. Chronic emphysema. No pneumonia. No pleural effusion or pneumo thorax. Cardiac size: Normal. Mediastinum/Aorta: Moderate atherosclerosis aorta. There are multiple plate and screw fixations involving consecutive ribs in the posterior LEFT thorax. XR/XR chest 1V portable [id number] IMPRESSION: 1. Chronic emphysema with no pneumonia. 2. Prior CABG. 3. Moderate atherosclerosis aorta.
--- NOTE | 2020-03-07 09:05 | ECG_ITS ---
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 Measurements Intervals [place] Rate: 91 P: 11 TX: 159 QRS: -42 QRSD: 90 T: 77 QT: 351 QTc: 433 Interpretive Statements SINUS RHYTHM LEFT AXIS DEVIATION [QRS AXIS < -30] PATTERN CONSISTENT WITH PULMONARY DISEASE NONSPECIFIC ST & T-WAVE ABNORMALITY Compared to ECG 01/11/2020 09:54:30 Left-axis deviation now present Possible ischemia no longer present T-wave abnormality still present Electronically Signed On 03-08-2020 7:20:15 CDT by Sushma Archibald M.D. [id number] crys
--- NOTE | 2020-03-07 09:07 | PC.NURSE ---
Read and agree with triage assessment.
--- NOTE | 2020-03-07 09:19 | ED_ITS ---
HPI - Fever General: Chief Complaint: Fever Stated Complaint: Congestion/SOB/CHEST PAIN Time Seen by Provider: 03/07/20 08:45 History of Present Illness: HPI Narrative: 84-year-old male presents emergency room with complaints of 3 days of cough. He has not had any diarrhea. low-grade fever nausea. He has had mildly productive cough. He has not had any hemoptysis. He has some chest discomfort but he relates that to chest wall pain from when he takes a deep breath or when he coughs. Had a fever with this as well. On arrival his oxygen sat is in the 80s on room air. During exam he desats into the low 80s just sitting up in bed and then recovers to the upper 90s after a few minutes. MD elicited complaint: fever Pertinent past history: immunosuppression (On prednisone) Onset (ago): day(s) (3) Exacerbating factors: exertion Relieving factors: rest Associated symptoms: Reports chest pain, cough, nasal congestion, nausea and rhinorrhea; Deny abdominal pain, flank pain, chills, confusion, diarrhea, dysuria, extremity pain, headache(s), myalgias, night sweats, rash, short of breath, sinus pain, stiffness, sore throat, vomiting or weight loss Treatments prior to arrival fever: acetaminophen and ibuprofen Review of Systems Const: Denies: chills or night sweats ENMT: Reports: nasal congestion; Denies: sinus pain Card: Reports: chest pain Resp: Reports: dyspnea and productive cough; Denies: non-productive cough GI: Reports: nausea; Denies: abdominal pain, vomiting or diarrhea : Denies: flank pain or dysuria Musc: Denies: extremity pain Skin/Breast: Denies: rash or pruritus Neuro: Denies: headache(s) or confusion PFS ED PFSH: Medical History Abdominal aortic aneurysm (AAA) Acute renal failure Anemia Aneurysm Aortic regurgitation Bilateral ureteral obstruction Bladder outlet obstruction Carotid arterial disease Carpal tunnel syndrome Chronic cystitis Chronic kidney disease (CKD) Chronic neck pain with history of cervical spinal surgery Chronic UTI (urinary tract infection) COPD (chronic obstructive pulmonary disease) CVA (cerebral vascular accident) Dyslipidemia Gastroesophageal reflux History of rib fracture Hypertension Osteoarthritis Peripheral vascular disease Renal artery stenosis Sepsis 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 TIA (transient ischemic attack) Surgical History H/O aortic valve replacement H/O colonoscopy 2016 H/O endarterectomy H/O esophagogastroduodenoscopy 2016 H/O rotator cuff surgery History of aortic valve replacement with bioprosthetic valve History of biopsy of temporal artery (12/21/19) History of carotid endarterectomy History of cataract extraction History of endovascular stent graft for abdominal aortic aneurysm (AAA) History of ureter stent Hx of appendectomy Hx of transurethral resection of prostate S/P decompression of ulnar nerve at elbow Family History Father Heart attack CAD (coronary artery disease) Denies family history of Anesthesia complication Bleeding disorder Social History Smoking and tobacco status: former smoker Quit status (tobacco): has quit using tobacco Year quit tobacco: 2006 PPD x 50 Years Alcohol intake: never Lives independently: Yes Household members: spouse Marital status: service: No Current occupational status: retired History of recent travel: No Current gender identity: Male Zohra/Episcopal: Mormonism Physical Exam Const: COMMON NORMALS: no acute distress GENERAL APPEARANCE: cooperative and comfortable ORIENTATION/CONSCIOUSNESS: Yes awake, Yes oriented to person, Yes oriented to place and Yes oriented to time HENMT: COMMON NORMALS: normocephalic, atraumatic, hearing grossly normal bilaterally, external ears normal, EAC's normal, TM's normal bilaterally, Normal nasal mucous membranes and turbinates present, moist oral mucous membranes and oropharynx normal HEAD & SCALP: normocephalic and atraumatic NOSE: Normal nasal mucous membranes and turbinates present EXTERNAL EAR: Yes external ears normal EXTERNAL AUDITORY CANAL: EAC's normal TYMPANIC MEMBRANE: TM's normal bilaterally Eye: COMMON NORMALS: Equal, round and reactive pupils present, EOMs intact bilaterally, conjunctivae normal and no scleral icterus CONJUNCTIVA: Yes conjunctivae normal PUPIL: Yes Equal, round and reactive pupils present Neck/C-Spine: COMMON NORMALS: full ROM, no lymphadenopathy, supple and no JVD Lymph: LYMPHATIC: no lymphadenopathy noted and no lymphedema noted Resp: COMMON NORMALS: No retractions and No use of accessory muscles AUSCULTATION: rhonchi and wheezes Cardio: COMMON NORMALS: no JVD, regular rate, regular rhythm and No murmurs present (Cardio) RATE: regular rate RHYTHM: regular rhythm GI: COMMON NORMALS: Soft to palpation and No hepatosplenomegaly present AUSCULTATION: Yes normoactive bowel sounds PALPATION: Yes Soft to palpation, No Tenderness to palpation present (GI), No Guarding due to palpation present (GI) and Yes No hepatosplenomegaly present Extremity: COMMON NORMALS: normal to inspection, capillary refill normal, no clubbing, cyanosis or edema, no calf tenderness and no pedal edema Neuro: SENSORIUM/ORIENTATION: Yes oriented to person, Yes oriented to place and Yes oriented to time Skin: COMMON NORMALS: no rashes or lesions noted GENERAL SKIN EXAM: no rashes or lesions noted Course Vital Signs: Vital signs: Vital Signs Temperature 98.6 F 03/07/20 08:59 Pulse Rate 91 03/07/20 08:59 Respiratory Rate 35 H 03/07/20 08:59 Blood Pressure 160/93 03/07/20 08:59 Pulse Oximetry 89 L 03/07/20 08:59 MDM - Fever MDM Narrative: Medical decision making narrative: Covid positive on the rapid antigen we will go ahead and admit dexamethasone given in the emergency room started on remdesivir discussed Dr. Lui at this point patient is an appropriate candidate for a floor bed with only needing oxygen support at this time. Lab Data: Labs: Lab Results 03/07/20 03/07/20 03/07/20 Range/Units 09:20 09:22 09:22 WBC (4.0-10.0) 10^3/ uL RBC (4.1-5.3) 10^6/u L Hgb (11.7-16.6) g/dL Hct (42.0-52.0) % MCV (80-94) fL MCH (28.0-34.0) pg MCHC (30.0-36.0) g/dL RDW (12.1-15.1) % Plt Count (130-400) 10^3/c mm MPV (7.4-10.4) fL Neut % (Auto) % Lymph % (Auto) % Garrard % (Auto) % Eos % (Auto) % Baso % (Auto) % Neut # (Auto) (1.8-7.7) 10^3/u L Lymph # (Auto) (0.8-4.8) 10^3/u L Garrard # (Auto) (0.2-0.9) 10^3/u L Eos # (Auto) (0.0-0.8) 10^3/u L Baso # (Auto) (0.0-0.1) 10^3/u L Nucleated RBC % (a uto) % Nucleated RBCs # /100WBC Fibrinogen 536 H (174-498) mg/dL D-Dimer 2.83 H (0-0.59) ug/mIFE U Specimen Type Arterial Sample Site Radial, right ABG pH 7.44 (7.35-7.45) ABG pCO2 34.2 L (35-45) mmHg ABG pO2 72.3 L (80.0-100.0) mmH g ABG HCO3 23.2 (22-26) mmol/L ABG Base Excess -0.6 (-2.0-2.0) mmol/ L Liam Test Pos Hematocrit 34.3 L (42-52) % O2 Delivery Device Room air FiO2 21.0 % Systems Eng ID glc Sodium 139 (136-145) mmol/L Potassium 4.1 (3.5-5.1) mmol/L Chloride 101 (98-107) mmol/L Carbon Dioxide 25 (22-29) mmol/L Anion Gap 17.1 (5-19) BUN 24 H (8-23) mg/dL Creatinine 1.7 H (0.7-1.2) mg/dL GFR Calculation Not Reportable Glucose 123 H (65-115) mg/dL Calculated Osmolal ity 293 (285-295) mOsm/k g Lactic Acid (0.5-2.2) mmol/L Calcium 9.4 (8.5-10.5) mg/dL Ferritin 31 (30-400) ng/mL Total Bilirubin 0.3 (0.15-1.2) mg/dL AST 20 (0-40) U/L ALT 21 (0-41) U/L Alkaline Phosphata se 67 (40-130) IU/L Lactate Dehydrogen ase 286 H (135-225) U/L Troponin T Baselin e (0-15) ng/L C-Reactive Protein 63.3 H (0.0-4.9) mg/L Total Protein 6.6 (6.6-8.7) g/dL Albumin 3.7 (3.5-5.2) g/dL Globulin 2.9 (1.3-4.6) g/dL Procalcitonin 0.21 (0-0.5) ng/mL SARS-CoV-2 Ag (Rap id) (Negative) 03/07/20 03/07/20 03/07/20 Range/Units 09:22 09:22 09:22 WBC 9.5 (4.0-10.0) 10^3/ uL RBC 4.89 (4.1-5.3) 10^6/u L Hgb 11.2 L (11.7-16.6) g/dL Hct 39.0 L (42.0-52.0) % MCV 79.8 L (80-94) fL MCH 22.9 L (28.0-34.0) pg MCHC 28.7 L (30.0-36.0) g/dL RDW 19.3 H (12.1-15.1) % Plt Count 269 (130-400) 10^3/c mm MPV 9.7 (7.4-10.4) fL Neut % (Auto) 84.6 % Lymph % (Auto) 8.6 % Garrard % (Auto) 4.7 % Eos % (Auto) 1.3 % Baso % (Auto) 0.2 % Neut # (Auto) 8.03 H (1.8-7.7) 10^3/u L Lymph # (Auto) 0.8 (0.8-4.8) 10^3/u L Garrard # (Auto) 0.5 (0.2-0.9) 10^3/u L Eos # (Auto) 0.1 (0.0-0.8) 10^3/u L Baso # (Auto) 0.0 (0.0-0.1) 10^3/u L Nucleated RBC % (a uto) 0.3 % Nucleated RBCs # 0.0 /100WBC Fibrinogen (174-498) mg/dL D-Dimer (0-0.59) ug/mIFE U Specimen Type Sample Site ABG pH (7.35-7.45) ABG pCO2 (35-45) mmHg ABG pO2 (80.0-100.0) mmH g ABG HCO3 (22-26) mmol/L ABG Base Excess (-2.0-2.0) mmol/ L Liam Test Hematocrit (42-52) % O2 Delivery Device FiO2 % Systems Eng ID Sodium (136-145) mmol/L Potassium (3.5-5.1) mmol/L Chloride (98-107) mmol/L Carbon Dioxide (22-29) mmol/L Anion Gap (5-19) BUN (8-23) mg/dL Creatinine (0.7-1.2) mg/dL GFR Calculation Glucose (65-115) mg/dL Calculated Osmolal ity (285-295) mOsm/k g Lactic Acid 2.1 (0.5-2.2) mmol/L Calcium (8.5-10.5) mg/dL Ferritin (30-400) ng/mL Total Bilirubin (0.15-1.2) mg/dL AST (0-40) U/L ALT (0-41) U/L Alkaline Phosphata se (40-130) IU/L Lactate Dehydrogen ase (135-225) U/L Troponin T Baselin e 61 H (0-15) ng/L C-Reactive Protein (0.0-4.9) mg/L Total Protein (6.6-8.7) g/dL Albumin (3.5-5.2) g/dL Globulin (1.3-4.6) g/dL Procalcitonin (0-0.5) ng/mL SARS-CoV-2 Ag (Rap id) (Negative) 03/07/20 Range/Units 09:22 WBC (4.0-10.0) 10^3/ uL RBC (4.1-5.3) 10^6/u L Hgb (11.7-16.6) g/dL Hct (42.0-52.0) % MCV (80-94) fL MCH (28.0-34.0) pg MCHC (30.0-36.0) g/dL RDW (12.1-15.1) % Plt Count (130-400) 10^3/c mm MPV (7.4-10.4) fL Neut % (Auto) % Lymph % (Auto) % Garrard % (Auto) % Eos % (Auto) % Baso % (Auto) % Neut # (Auto) (1.8-7.7) 10^3/u L Lymph # (Auto) (0.8-4.8) 10^3/u L Garrard # (Auto) (0.2-0.9) 10^3/u L Eos # (Auto) (0.0-0.8) 10^3/u L Baso # (Auto) (0.0-0.1) 10^3/u L Nucleated RBC % (a uto) % Nucleated RBCs # /100WBC Fibrinogen (174-498) mg/dL D-Dimer (0-0.59) ug/mIFE U Specimen Type Sample Site ABG pH (7.35-7.45) ABG pCO2 (35-45) mmHg ABG pO2 (80.0-100.0) mmH g ABG HCO3 (22-26) mmol/L ABG Base Excess (-2.0-2.0) mmol/ L Liam Test Hematocrit (42-52) % O2 Delivery Device FiO2 % Systems Eng ID Sodium (136-145) mmol/L Potassium (3.5-5.1) mmol/L Chloride (98-107) mmol/L Carbon Dioxide (22-29) mmol/L Anion Gap (5-19) BUN (8-23) mg/dL Creatinine (0.7-1.2) mg/dL GFR Calculation Glucose (65-115) mg/dL Calculated Osmolal ity (285-295) mOsm/k g Lactic Acid (0.5-2.2) mmol/L Calcium (8.5-10.5) mg/dL Ferritin (30-400) ng/mL Total Bilirubin (0.15-1.2) mg/dL AST (0-40) U/L ALT (0-41) U/L Alkaline Phosphata se (40-130) IU/L Lactate Dehydrogen ase (135-225) U/L Troponin T Baselin e (0-15) ng/L C-Reactive Protein (0.0-4.9) mg/L Total Protein (6.6-8.7) g/dL Albumin (3.5-5.2) g/dL Globulin (1.3-4.6) g/dL Procalcitonin (0-0.5) ng/mL SARS-CoV-2 Ag (Rap id) Positive H (Negative) Discharge Plan Discharge Patient Disposition: Home Clinical Impression: COVID-19 Condition: Stable Prescriptions: No Action albuterol sulfate 90 mcg/actuation HFA aerosol inhaler 2 puff INHALATION Q6H PRN (Reason: shortness of breath or wheezing) 30 Days Qty: 18 RF: 3 prednisone 5 mg tablet 15 mg PO DAILY RF: 0 Stiolto Respimat 2.5-2.5 mcg/actuation mist 2 puff INHALATION Q24H 30 Days Qty: 4 RF: 4 aspirin [Aspir-81] 81 mg Tablet,Delayed Release (Dr/Ec) 81 mg PO DAILY RF: 0 alprazolam 0.5 mg Tablet 0.5 mg PO TID PRN (Reason: unknown) RF: 0 hydrocodone-acetaminophen [[place]] 7.5-325 mg Tablet 1 tab PO Q6H PRN (Reason: Pain) RF: 0 pantoprazole 40 mg Tablet,Delayed Release (Dr/Ec) 40 mg PO BID RF: 0 diphenhydramine-acetaminophen [Tylenol PM Extra Strength] 25-500 mg Tablet 1 tab PO BEDTIME PRN (Reason: Sleep) RF: 0 duloxetine [Cymbalta] 30 mg Capsule,Delayed Release(Dr/Ec) 30 mg PO DAILY RF: 0 polyethylene glycol 3350 17 gram powder in packet 17 g PO BEDTIME RF: 0 carvedilol 6.25 mg tablet 6.25 mg PO BID RF: 0 Referrals: Edwar Peres MD [Primary Care Provider] - Coding Level of Care Code ED Truck Driver Instructor for Chg Fwd Exam Comprehensive
[2020-03-07 09:30] LABS: ABG PCO2 34.2 mmHg (35-45); ABG PH Result 7.44 (7.35-7.45); Arterial Blood Gas Hematocrit 34.3 % (42-52); Base Excess ABG -0.6 mmol/L (-2.0-2.0); Blood Gas Allen Test Pos; Blood Gas Operator Identificat glc; Blood Gas Sample Site Radial, right; Blood Gas Sample Type Arterial; HCO3 ABG 23.2 mmol/L (22-26); Oxygen Device ROOM AIR; PO2 ABG 72.3 mmHg (80.0-100.0)
--- NOTE | 2020-03-07 09:32 | PC.NURSE ---
RT at bedside for ABG
[2020-03-07 09:33] LABS: Basophils % 0.2 %; Eosinophils # 0.1 10^3/uL (0.0-0.8); Eosinophils % 1.3 %; Hemoglobin 11.2 g/dL (11.7-16.6); Lymphocytes # 0.8 10^3/uL (0.8-4.8); Lymphocytes % 8.6 %; Mean Corpuscular HGB Conc 28.7 g/dL (30.0-36.0); Mean Corpuscular Hemoglobin 22.9 pg (28.0-34.0); Mean Corpuscular Volume 79.8 fL (80-94); Mean Platelet Volume 9.7 fL (7.4-10.4); Monocytes # 0.5 10^3/uL (0.2-0.9); Monocytes % 4.7 %; Neutrophils # 8.03 10^3/uL (1.8-7.7); Neutrophils % 84.6 %; Nucleated Red Blood Cells % 0.3 %; Platelet Count 269 10^3/cmm (130-400); Red Blood Count 4.89 10^6/uL (4.1-5.3); Red Cell Distribution Width 19.3 % (12.1-15.1); White Blood Count 9.5 10^3/uL (4.0-10.0)
[2020-03-07 09:48] LABS: Fibrinogen 536 mg/dL (174-498)
[2020-03-07 09:51] LABS: D Dimer 2.83 ug/mIFEU (0-0.59)
[2020-03-07 09:53] LABS: Troponin(5th) Baseline 61 ng/L (0-15)
[2020-03-07 09:54] LABS: Lactic Sepsis W/Reflex 2.1 mmol/L (0.5-2.2); SARS Covid-2 Antigen Positive (Negative)
[2020-03-07 10:01] LABS: Procalcitonin 0.21 ng/mL (0-0.5)
[2020-03-07 10:12] LABS: Alanine Aminotransferase 21 U/L (0-41); Albumin Level 3.7 g/dL (3.5-5.2); Alkaline Phosphatase 67 IU/L (40-130); Anion Gap 17.1 (5-19); Aspartate Amino Transferase 20 U/L (0-40); Blood Urea Nitrogen 24 mg/dL (8-23); C Reactive Protein 63.3 mg/L (0.0-4.9); Calcium 9.4 mg/dL (8.5-10.5); Carbon Dioxide 25 mmol/L (22-29); Chloride 101 mmol/L (98-107); Ferritin 31 ng/mL (30-400); Globulin 2.9 g/dL (1.3-4.6); Glucose 123 mg/dL (65-115); Lactate Dehydrogenase 286 U/L (135-225); Osmolality Calculated 293 mOsm/kg (285-295); Potassium 4.1 mmol/L (3.5-5.1); Sodium 139 mmol/L (136-145); Total Bilirubin 0.3 mg/dL (0.15-1.2); Total Protein 6.6 g/dL (6.6-8.7)
--- NOTE | 2020-03-07 11:05 | ECG_ITS ---
[facility] Test Date: 2020-03-07 Pat Name: Sher Monroy Department: Room: Gender: Male Companion Caregiver: : 1935 Requested By: Dmitry Ontiveros Order Number: [id number] Erasto MD: Sushma Archibald M.D. Measurements Intervals [place] Rate: 89 P: 20 [place]: 175 QRS: -35 QRSD: 87 T: 86 QT: 362 QTc: 442 Interpretive Statements SINUS RHYTHM MARKED LEFT AXIS DEVIATION [QRS AXIS < -30] PATTERN CONSISTENT WITH PULMONARY DISEASE NONSPECIFIC ST & T-WAVE ABNORMALITY Compared to ECG 03/07/2020 08:57:33 No significant changes Electronically Signed On 03-08-2020 7:37:31 CDT by Sushma Archibald M.D. [id number]
[2020-03-07 11:17] LABS: Reflex Lactate Order REFLEX LACTIC ORDERD
[2020-03-07] MEDS: dexamethasone 4 mg/mL INJ 6 MG IVP (12:17)
[2020-03-07 12:24] LABS: Lactic Acid level (Lactate) 0.8 mmol/L (0.5-2.2); Troponin 5 2HR 53.87 ng/L (0-15)
[2020-03-07 12:26] LABS: Troponin 5 2HR Delta -7.13 ABS# (0-10)
[2020-03-07 14:54] LABS: Influenza A by IFA Negative (Negative); Influenza B by IFA Negative (Negative)
--- NOTE | 2020-03-07 15:04 | PM.HP ---
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 Patient stated that his symptoms started on Saturday with sudden onset cough, sputum production and nasal congestion. He reported that he ran a fever all day Saturday and on Saturday no fever but continued to decline. Came into the ER today for further evaluation and treatment. Patient reported that he has been to the doctor's office and to rastafari, denies any known exposure to anyone under investigation or positive for COVID-19. Patient denies any nausea, vomiting, no diarrhea or abdominal pain. Reports fever, nasal congestion and cough her only symptoms thus far. Review of Systems Const: Reports: fever(s); Denies: chills Eyes: Denies: change in vision ENMT: Denies: nasal congestion Card: Denies: chest pain, palpitations or edema Resp: Reports: dyspnea and productive cough; Denies: hemoptysis GI: Denies: abdominal pain, nausea, vomiting, diarrhea, constipation, hematochezia or melena : Denies: dysuria or hematuria Musc: Denies: extremity pain or muscle cramps Skin/Breast: Denies: rash or new lesions Neuro: Denies: headache(s) or dizziness Psych: Denies: anxiety or depression Endo: Denies: polyuria or hot flashes Jason/Lymph: Denies: easy bruising or easy bleeding Medications/Allergies Home Medications Medication Instructions Recorded Confirmed Last Taken Type alprazolam 0.5 mg PO TID PRN 05/13/19 03/07/20 03/07/20 07:00 History aspirin [Aspir-81] 81 mg PO DAILY 05/13/19 03/07/20 03/07/20 07:00 History diphenhydramine-acetaminophen 1 tab PO BEDTIME PRN 05/13/19 03/07/20 03/06/20 History [Tylenol PM Extra Strength] duloxetine [Cymbalta] 30 mg PO DAILY 05/13/19 03/07/20 03/07/20 07:00 History hydrocodone-acetaminophen [[place]] 1 tab PO Q6H PRN 05/13/19 03/07/20 03/07/20 07:00 History pantoprazole 40 mg PO BID 05/13/19 03/07/20 03/07/20 07:00 History albuterol sulfate 90 mcg/actuation 2 puff INHALATION Q6H PRN 30 Days 12/14/19 03/07/20 Unknown Rx aerosol inhaler #18 gm polyethylene glycol 3350 17 gram 17 g PO BEDTIME 03/01/20 03/07/20 03/06/20 History oral powder packet prednisone 5 mg tablet 15 mg PO DAILY tab 03/01/20 03/07/20 03/07/20 07:00 History 12.5mg tiotropium 2.5 mcg-olodaterol 2.5 2 puff INHALATION Q24H 30 Days #4 03/01/20 03/07/20 03/07/20 07:00 Rx mcg/actuation mist for inhalation gm carvedilol 6.25 mg PO BID 03/07/20 03/07/20 03/07/20 07:00 History Allergies Allergy/AdvReac Type Severity Reaction Status Date / Time No Known Allergies Allergy Verified 03/07/20 10:23 PFSH Acute PFSH: Medical History Abdominal aortic aneurysm (AAA) Acute renal failure Anemia Aneurysm Aortic regurgitation Bilateral ureteral obstruction Bladder outlet obstruction Carotid arterial disease Carpal tunnel syndrome Chronic cystitis Chronic kidney disease (CKD) Chronic neck pain with history of cervical spinal surgery Chronic UTI (urinary tract infection) COPD (chronic obstructive pulmonary disease) CVA (cerebral vascular accident) Dyslipidemia Gastroesophageal reflux History of rib fracture Hypertension Osteoarthritis Peripheral vascular disease Renal artery stenosis Sepsis 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 TIA (transient ischemic attack) Surgical History H/O aortic valve replacement H/O colonoscopy 2016 H/O endarterectomy H/O esophagogastroduodenoscopy 2016 H/O rotator cuff surgery History of aortic valve replacement with bioprosthetic valve History of biopsy of temporal artery (12/21/19) History of carotid endarterectomy History of cataract extraction History of endovascular stent graft for abdominal aortic aneurysm (AAA) History of ureter stent Hx of appendectomy Hx of transurethral resection of prostate S/P decompression of ulnar nerve at elbow Family History Father Heart attack CAD (coronary artery disease) Denies family history of Anesthesia complication Bleeding disorder Social History Smoking and tobacco status: former smoker Quit status (tobacco): has quit using tobacco Year quit tobacco: 2006 PPD x 50 Years Alcohol intake: never Lives independently: Yes Household members: spouse Marital status: service: No Current occupational status: retired History of recent travel: No Current gender identity: Male Zohra/Temple: Pentecostal Vitals/I&O/Wt Last Vital Signs Temp 98.8 F 03/07/20 12:15 Pulse 88 03/07/20 12:18 Resp 20 H 03/07/20 12:18 BP 140/89 03/07/20 12:18 Pulse Ox 96 03/07/20 12:18 03/07/20 03/07/20 03/07/20 06:59 14:59 22:59 Intake Total 100 / 100 Balance 100 / 100 Physical Exam Const: COMMON NORMALS: patient oriented x3 and alert GENERAL APPEARANCE: cooperative ORIENTATION/CONSCIOUSNESS: Yes awake, Yes oriented to person, Yes oriented to place and Yes oriented to time HENMT: COMMON NORMALS: normocephalic and atraumatic HEAD & SCALP: normocephalic and atraumatic Eye: COMMON NORMALS: Equal, round and reactive pupils present PUPIL: Yes Equal, round and reactive pupils present Neck/C-Spine: COMMON NORMALS: supple GENERAL: Yes normal visual inspection Resp: EFFORT & INSPECTION: Yes able to speak in complete sentences AUSCULTATION: clear to auscultation bilaterally, no rhonchi and no wheezes OTHER: Oxygen by nasal cannula in place, diminished breath sounds bilaterally, no appreciable wheezing or rhonchi Cardio: COMMON NORMALS: regular rate and regular rhythm RATE: regular rate RHYTHM: regular rhythm OTHER: Systolic murmur present GI: COMMON NORMALS: Soft to palpation and non-tender INSPECTION: No abdominal distension AUSCULTATION: Yes normoactive bowel sounds PALPATION: Yes Soft to palpation Extremity: COMMON NORMALS: no clubbing, cyanosis or edema and no calf tenderness Neuro: COMMON NORMALS: patient oriented x3, CN's II-XII intact bilaterally, moves all extremities and no focal motor deficits SENSORIUM/ORIENTATION: Yes alert, Yes oriented to person, Yes oriented to place and Yes oriented to time SPEECH: speech normal Psych: COMMON NORMALS: mental status grossly normal and cooperative Skin: COMMON NORMALS: no rashes or lesions noted GENERAL SKIN EXAM: no rashes or lesions noted Data : 03/07/20 09:22 03/07/20 09:22 CXR: I personally reviewed and interpreted this imaging study as follows: Radiologist's impression: 1. Chronic emphysema with no pneumonia. 2. Prior CABG. 3. Moderate atherosclerosis aorta. A&P Assessment and plan (1) COVID-19: Discussed with patient risk and benefits of remdesivir and dexamethasone, he reported understanding and agreed with treatment. Continue with supportive care Oxygen per protocol, respiratory therapy to assess and treat Status: Acute (2) Shortness of Breath: Secondary to COVID-19 viral illness Status: Acute (3) COPD (chronic obstructive pulmonary disease): Continue with treatment as above Status: Acute (4) Chronic kidney disease (CKD): Creatinine appears to be at baseline at this time, strict intake and output as well as daily weights Status: Acute (5) Abdominal aortic aneurysm (AAA): Followed closely by vascular surgeon at outside facility. History of repair in 2010 Status: Acute (6) Hypertension: Continue home Coreg, Status: Acute (7) Dyslipidemia: Status: Acute Additional A&P Information Diet: Cardiac DVT prophylaxis: Lovenox CODE STATUS: Full code Attestations Medical Necessity Statement*: Patient requires hospitalization due to concern for COVID-19 viral pneumonia, expected stay greater than 2 midnights. Coding Level of Care Code Acute Fingerprint Expert for [facility] Fwd Diagnoses COVID-19 U07.1 Shortness of Breath R06.02 COPD (chronic obstructive pulmonary disease) J44.9 Chronic kidney disease (CKD) N18.9 Abdominal aortic aneurysm (AAA) I71.4 Hypertension I10 Dyslipidemia E78.5
--- NOTE | 2020-03-07 15:05 | ECG_ITS ---
[facility] Test Date: 2020-03-07 Pat Name: Sher Monroy Department: Room: 269 Gender: Male Media Law Faculty Member: : 1935 Requested By: Dmitry Ontiveros Order Number: [id number] Erasto MD: Sushma Archibald M.D. Measurements Intervals [place] Rate: 88 P: 20 PA: 181 QRS: -25 QRSD: 85 T: 95 QT: 365 QTc: 443 Interpretive Statements SINUS RHYTHM WITH OCCASIONAL SUPRAVENTRICULAR PREMATURE COMPLEXES BORDERLINE LEFT AXIS DEVIATION [QRS AXIS < -20] NONSPECIFIC ST & T-WAVE ABNORMALITY Compared to ECG 03/07/2020 11:07:55 No significant changes Electronically Signed On 03-08-2020 7:36:11 CDT by Sushma Archibald M.D. [id number]
[2020-03-07] MEDS: albuterol 8 gm MDI 2 PUFF INHALATION ×2 (15:44→20:27)
[2020-03-07] MEDS: enoxaparin 40 mg/0.4 mL Syringe SUBCUT (16:29)
[2020-03-07] MEDS: HYDROcodone-acetaminophen 7.5-325 mg Tablet 1 TAB PO (16:32)
--- NOTE | 2020-03-07 17:32 | PC.NURSE ---
Read and agree with assessment.
[2020-03-07 18:02] LABS: Troponin 5 6HR 36.43 ng/L (0-15)
[2020-03-07] MEDS: carvedilol 6.25 mg Tablet PO (18:23)
[2020-03-07] MEDS: polyethylene glycol 3350 Pkt 17 gm PO (21:53)
[2020-03-08] VITALS (7 sets, daily range): BP systolic 147–157; BP diastolic 81–92; PULSE 82–88; RESP 17–20; TEMP 36.6–36.8; O2SAT 90–97
[2020-03-08] MEDS: HYDROcodone-acetaminophen 7.5-325 mg Tablet 1 TAB PO ×2 (01:32→08:53)
--- NOTE | 2020-03-08 04:00 | XR_ITS ---
WS: [id number] Exam: XR chest 1V portable [id number] Date/Time of Exam: 03/08/2020 4:46 AM Reason For Exam: dyspnea/cough Findings: Comparison 03/07/2020. The lungs are hyperinflated and clear. Normal cardiomediastinal structures for AP technique. Plate an d screw fixation of multiple of posterior left ribs. Signs of median sternotomy. Hardware noted in t he lower cervical spine. Surgical clips in the left neck. XR/XR chest 1V portable [id number] IMPRESSION: 1. Pulmonary hyperinflation which may represent COPD. No acute cardiopulmonary process identified.
--- NOTE | 2020-03-08 05:18 | PC.NURSE ---
walked to bathroom twice and told staff afterwards
--- NOTE | 2020-03-08 07:52 | PC.NURSE ---
per pt, I had peed this out all throughout the night. urinal was emptied by this nurse.
[2020-03-08 08:02] LABS: Eosinophils % 0.1 %; Hematocrit 38.8 % (42.0-52.0); Hemoglobin 11.2 g/dL (11.7-16.6); Lymphocytes # 1.3 10^3/uL (0.8-4.8); Mean Corpuscular HGB Conc 28.9 g/dL (30.0-36.0); Mean Corpuscular Hemoglobin 22.7 pg (28.0-34.0); Mean Corpuscular Volume 78.7 fL (80-94); Mean Platelet Volume 10.2 fL (7.4-10.4); Monocytes # 0.5 10^3/uL (0.2-0.9); Monocytes % 3.9 %; Neutrophils # 9.74 10^3/uL (1.8-7.7); Neutrophils % 84.6 %; Nucleated Red Blood Cells % 0.3 %; Platelet Count 321 10^3/cmm (130-400); Red Blood Count 4.93 10^6/uL (4.1-5.3); White Blood Count 11.5 10^3/uL (4.0-10.0)
[2020-03-08 08:11] LABS: D Dimer 2.99 ug/mIFEU (0-0.59)
[2020-03-08 08:13] LABS: Alanine Aminotransferase 21 U/L (0-41); Albumin Level 3.9 g/dL (3.5-5.2); Alkaline Phosphatase 65 IU/L (40-130); Aspartate Amino Transferase 21 U/L (0-40); Blood Urea Nitrogen 33 mg/dL (8-23); Calcium 9.5 mg/dL (8.5-10.5); Carbon Dioxide 24 mmol/L (22-29); Chloride 97 mmol/L (98-107); Globulin 3.4 g/dL (1.3-4.6); Glucose 105 mg/dL (65-115); Osmolality Calculated 286 mOsm/kg (285-295); Sodium 134 mmol/L (136-145); Total Bilirubin 0.3 mg/dL (0.15-1.2); Total Protein 7.3 g/dL (6.6-8.7)
[2020-03-08] MEDS: albuterol 8 gm MDI 2 PUFF INHALATION (08:16)
[2020-03-08] MEDS: dexamethasone 4 mg/mL INJ 6 MG IVP (08:30)
[2020-03-08] MEDS: carvedilol 6.25 mg Tablet PO (08:30)
[2020-03-08] MEDS: duloxetine 30 mg Capsule PO (08:31)
[2020-03-08] MEDS: pantoprazole DR 40 mg Tablet PO (08:31)
[2020-03-08] MEDS: aspirin 81 mg EC Tablet PO (08:31)
--- NOTE | 2020-03-08 11:08 | PM.DCS ---
Discharge Providers Date of Admission: 03/07/20 11:31 Date of Discharge: March 08, 2020 Attending Provider at Admission: Kaylie Lui DO Attending Provider at Discharge: Kaylie Lui DO Primary Care Provider: Edwar Peres MD Diagnoses at Discharge Discharge Diagnosis (1) COVID-19: Status: Acute (2) Shortness of Breath: Status: Acute (3) COPD (chronic obstructive pulmonary disease): Status: Acute (4) Chronic kidney disease (CKD): Status: Acute (5) Abdominal aortic aneurysm (AAA): Status: Acute (6) Hypertension: Status: Acute (7) Dyslipidemia: Status: Acute Reason for Visit Reason for Visit: Congestion/SOB Hospital Course Hospital Course: Patient was seen and evaluated in the emergency department noted to have concern for hypoxia shortness of breath with increased cough and congestion. He was tested for COVID-19 and returned positive by rapid antigen test. Send out PCR was also ordered. Patient had been noted to have fever and chills as well as increasing cough and shortness of breath since Saturday of last week. Patient was admitted to the hospital placed on oxygen by nasal cannula, started on course of remdesivir and dexamethasone. Patient's oxygen was weaned as tolerated. On date of discharge patient reported that he was feeling well back to his baseline and requesting discharge to home. Long discussion with patient at bedside to continue to monitor symptoms closely at home and if any worsening respiratory status he is to return to the ED, he verbalized understanding and agreed with plan. He verbalized understanding that he is early in his course of COVID-19 viral infection and his respiratory status may decline over the next couple of days. Patient is on chronic steroids, discussed with his primary care provider and agreed on a plan on date of discharge for short burst of stress dose steroids. Physical Exam Const: COMMON NORMALS: patient oriented x3 and alert GENERAL APPEARANCE: cooperative ORIENTATION/CONSCIOUSNESS: Yes awake, Yes oriented to person, Yes oriented to place and Yes oriented to time HENMT: COMMON NORMALS: normocephalic and atraumatic HEAD & SCALP: normocephalic and atraumatic Eye: COMMON NORMALS: Equal, round and reactive pupils present PUPIL: Yes Equal, round and reactive pupils present Neck/C-Spine: COMMON NORMALS: supple GENERAL: Yes normal visual inspection Resp: COMMON NORMALS: clear to auscultation bilaterally EFFORT & INSPECTION: Yes able to speak in complete sentences AUSCULTATION: clear to auscultation bilaterally, no rhonchi and no wheezes OTHER: Oxygen by nasal cannula in place, diminished breath sounds bilaterally, no appreciable wheezing or rhonchi Cardio: COMMON NORMALS: regular rate and regular rhythm RATE: regular rate RHYTHM: regular rhythm OTHER: Systolic murmur present GI: COMMON NORMALS: Soft to palpation and non-tender INSPECTION: No abdominal distension AUSCULTATION: Yes normoactive bowel sounds PALPATION: Yes Soft to palpation Extremity: COMMON NORMALS: no clubbing, cyanosis or edema and no calf tenderness Neuro: COMMON NORMALS: patient oriented x3, CN's II-XII intact bilaterally, moves all extremities and no focal motor deficits SENSORIUM/ORIENTATION: Yes alert, Yes oriented to person, Yes oriented to place and Yes oriented to time SPEECH: speech normal Psych: COMMON NORMALS: mental status grossly normal and cooperative Skin: COMMON NORMALS: no rashes or lesions noted GENERAL SKIN EXAM: no rashes or lesions noted Discharge Data Data Completed and Pending: Completed Studies During Hospitalization Category Date Time Status XR chest 1V lidia ble [id number] AM LABS Exams 03/08/20 04:00 Completed XR chest 1V lidia ble [id number] Stat Exams 03/07/20 09:02 Completed Pending at discharge Category Date Time Status Coronavirus Lab T est PTC Stat Lab 03/07/20 14:10 Received Sputum Culture an d Gram Stain Routi ne Lab 03/07/20 21:41 Ordered Labs from last 24 hours 03/08/20 03/08/20 03/08/20 07:45 07:45 07:45 WBC 11.5 H RBC 4.93 Hgb 11.2 L Hct 38.8 L MCV 78.7 L MCH 22.7 L MCHC 28.9 L RDW 19.0 H Plt Count 321 MPV 10.2 Neut % (Auto) 84.6 Lymph % (Auto) 11.0 [place] % (Auto) 3.9 Eos % (Auto) 0.1 Baso % (Auto) 0.0 Neut # (Auto) 9.74 H Lymph # (Auto) 1.3 [place] # (Auto) 0.5 Eos # (Auto) 0.0 Baso # (Auto) 0.0 Nucleated RBC % (a uto) 0.3 Nucleated RBCs # 0.0 D-Dimer 2.99 H Sodium 134 L Potassium 4.0 Chloride 97 L Carbon Dioxide 24 Anion Gap 17.0 BUN 33 H Creatinine 1.5 H GFR Calculation Not Reportable Glucose 105 Calculated Osmolal ity 286 Lactic Acid (Sepsi s) Calcium 9.5 Total Bilirubin 0.3 AST 21 ALT 21 Alkaline Phosphata se 65 Troponin T 120 Min [place] Delta Troponin T Troponin T Hi Sens 6Hr Troponin T Hi Sens 6Hr Delta Total Protein 7.3 Albumin 3.9 Globulin 3.4 Nasal/Oral COVID-1 9 PCR Influenza Type A A g Influenza Type B A g 03/07/20 03/07/20 03/07/20 17:15 14:10 14:10 WBC RBC Hgb Hct MCV MCH MCHC RDW Plt Count MPV Neut % (Auto) Lymph % (Auto) [place] % (Auto) Eos % (Auto) Baso % (Auto) Neut # (Auto) Lymph # (Auto) [place] # (Auto) Eos # (Auto) Baso # (Auto) Nucleated RBC % (a uto) Nucleated RBCs # D-Dimer Sodium Potassium Chloride Carbon Dioxide Anion Gap BUN Creatinine GFR Calculation Glucose Calculated Osmolal ity Lactic Acid (Sepsi s) Calcium Total Bilirubin AST ALT Alkaline Phosphata se Troponin T 120 Min [place] Delta Troponin T Troponin T Hi Sens 6Hr 36.43 H Troponin T Hi Sens 6Hr Delta -24.57 L Total Protein Albumin Globulin Nasal/Oral COVID-1 9 PCR Pending Influenza Type A A g Negative Influenza Type B A g Negative 03/07/20 03/07/20 11:49 11:49 WBC RBC Hgb Hct MCV MCH MCHC RDW Plt Count MPV Neut % (Auto) Lymph % (Auto) [place] % (Auto) Eos % (Auto) Baso % (Auto) Neut # (Auto) Lymph # (Auto) [place] # (Auto) Eos # (Auto) Baso # (Auto) Nucleated RBC % (a uto) Nucleated RBCs # D-Dimer Sodium Potassium Chloride Carbon Dioxide Anion Gap BUN Creatinine GFR Calculation Glucose Calculated Osmolal ity Lactic Acid (Sepsi s) 0.8 Calcium Total Bilirubin AST ALT Alkaline Phosphata se Troponin T 120 Min [place] 53.87 H Delta Troponin T -7.13 L Troponin T Hi Sens 6Hr Troponin T Hi Sens 6Hr Delta Total Protein Albumin Globulin Nasal/Oral COVID-1 9 PCR Influenza Type A A g Influenza Type B A g Vitals: Last Vital Signs Temp 98.0 F 03/08/20 08:00 Pulse 82 03/08/20 08:16 Resp 18 03/08/20 08:16 BP 149/92 03/08/20 08:00 Pulse Ox 97 03/08/20 08:16 Discharge Plan Discharge Patient Disposition: Home Condition: Stable Prescriptions: New prednisone 20 mg tablet 20 mg PO DAILY 4 Days Qty: 4 RF: 0 Continued albuterol sulfate 90 mcg/actuation HFA aerosol inhaler 2 puff INHALATION Q6H PRN (Reason: shortness of breath or wheezing) 30 Days Qty: 18 RF: 3 Stiolto Respimat 2.5-2.5 mcg/actuation mist 2 puff INHALATION Q24H 30 Days Qty: 4 RF: 4 aspirin [Aspir-81] 81 mg Tablet,Delayed Release (Dr/Ec) 81 mg PO DAILY RF: 0 alprazolam 0.5 mg Tablet 0.5 mg PO TID PRN (Reason: unknown) RF: 0 hydrocodone-acetaminophen [[place]] 7.5-325 mg Tablet 1 tab PO Q6H PRN (Reason: Pain) RF: 0 pantoprazole 40 mg Tablet,Delayed Release (Dr/Ec) 40 mg PO BID RF: 0 diphenhydramine-acetaminophen [Tylenol PM Extra Strength] 25-500 mg Tablet 1 tab PO BEDTIME PRN (Reason: Sleep) RF: 0 duloxetine [Cymbalta] 30 mg Capsule,Delayed Release(Dr/Ec) 30 mg PO DAILY RF: 0 polyethylene glycol 3350 17 gram powder in packet 17 g PO BEDTIME RF: 0 carvedilol 6.25 mg tablet 6.25 mg PO BID RF: 0 Held prednisone 5 mg tablet 15 mg PO DAILY RF: 0 Hold Instructions: Resume on 03/13/20. Prednisone 20 mg daily as prescribed. Once you complete this course continue with your previously prescribed 12.5 mg daily. Discharge Orders: Discharge Order (Routine); Ordered 03/07/20 Ordered By: Dmitry Wells Referrals: Edwar Peres MD [Primary Care Provider] - 1-3 days (Telehealth visit in the next 24 to 48 hours.) Discharge Diet: Advance as tolerated and Cardiac Discharge Activity: Increase activity as tolerated Activity Restrictions/Additional Instructions: Discharge to home with close outpatient telehealth follow-up with Dr. Peres For any worsening shortness of breath, increasing cough or persistent fever please call your physician or present to the ED Continue with prednisone 20 mg daily for an additional 4 days then go back to 12.5mg daily as previously prescribed. This plan was discussed with your primary care provider, Dr. Peres. Call your physician or present to the ED for any acute illness or concern Discharge Attestations Time Spent in Discharge Care*: greater than 30 min Specific Discharge Activities: Specific discharge activities: educating patient, discussing with pcp/other providers and documenting/other paperwork Quality Metrics Clinical Quality Measures During this hospital stay, did patient experience: None Coding Level of Care Code Acute Selling Specialist for Chg Fwd Diagnoses COVID-19 U07.1 Shortness of Breath R06.02 COPD (chronic obstructive pulmonary disease) J44.9 Chronic kidney disease (CKD) N18.9 Abdominal aortic aneurysm (AAA) I71.4 Hypertension I10 Dyslipidemia E78.5
[2020-03-08] MEDS: enoxaparin 40 mg/0.4 mL Syringe SUBCUT (14:39)
--- NOTE | 2020-03-08 15:36 | PC.NURSE ---
discarge packet given to pt. signed packet placed on chart
[2020-03-09 09:13] LABS: Coronavirus Lab Test PTC Positive
--- NOTE | 2020-03-09 13:27 | PC.SOCIAL ---
Spoke with the patient on the phone. He stated that he was doing fine, especially with having oxygen now at home. He stated that he did have his phone call follow up appointment with his doctor today. He stated that it went well. He did have a question about his lab results from 03/08/2020. He also asked if it would be possible for his children to catch the COVID 19 from them. The children are there with the patient and his helping. The children have already had the COVID 19. It was thought that there could be a possibility that the kids gave the patient and the COVID, but they were out of quarantine when they came to visit. We did speak of ways to keep their immune systems up, this is by staying up to date on immunizations, going to doctor appointments, eating and drinking right and staying away from unnecessary stress. We also spoke of the many symptoms to watch for, this included Blue lips or face, fever of 104 or higher, trouble breathing or shortness of breath, chest pain or discomfort lasting longer than 5 minutes, confusion or trouble waking. We also spoke about ways to help prevent the spread of COVID 19 especially since his children have been over helping. This included social distancing, limiting outings or company, washing hands for at least 20 seconds in a good lather, wiping down surfaces in home and car, coughing or sneezing in arm or turn head, masking up when out and about or when company is over. We also spoke about his medications. He had no issue getting them and understood the medication to take as well as his discharge instructions. I educated the patient on plasma donation, he did not feel he would be able to donate but stated that his family may be interested. I mailed information on plasma donation to the patient.
--- NOTE | 2020-03-09 18:05 | PC.RESP ---
Pulmonary Rehab packet sent to patient.
--- NOTE | 2020-03-10 14:01 | PC.SOCIAL ---
Called patient back per request to review labs and to answer some questions. Labs reviewed. Patients questions were all answered. Patient indicates been feeling okay until today. He feels congested and is coughing more again today. He also has a headache. He has called Dr Peres office and requested a visit or call earlier. This nurse also called to ensure a message was left for Dr Peres and per Lindsey at office he was given the message and hopefully he can return call soon.
== END 2020-03-08 13:50 | disposition home or self-care (01) | DRG 179 ==
LOC: ER 11:45 → MEDSURG 12:00
PROVIDERS: Family Medicine; Admitting Provider Family Medicine; PCP Family Medicine; Visit Provider Family Medicine
DX: U07.1 COVID-19 (principal); R09.02 Hypoxemia; J43.9 Emphysema, unspecified; I12.9 Hypertensive chronic kidney disease with stage 1 through stage 4 chronic kidney disease, or unspecified chronic kidney disease; N18.9 Chronic kidney disease, unspecified; E78.5 Hyperlipidemia, unspecified; I71.4 Abdominal aortic aneurysm, without rupture; K21.9 Gastro-esophageal reflux disease without esophagitis; Z79.891 Long term (current) use of opiate analgesic; Z79.82 Long term (current) use of aspirin; Z79.899 Other long term (current) drug therapy; Z79.52 Long term (current) use of systemic steroids; Z87.891 Personal history of nicotine dependence; Z95.1 Presence of aortocoronary bypass graft; Z86.73 Personal history of transient ischemic attack (TIA), and cerebral infarction without residual deficits; Z95.3 Presence of xenogenic heart valve; Z95.828 Presence of other vascular implants and grafts; Z23 Encounter for immunization
CPT/HCPCS: 12345; 36415; 36600; 71045; 80053; 82728; 82803; 83605; 83615; 84145; 84484; 85025; 85378; 85384; 86140; 87426; 87635; 87804; 90471; 90686; 93005; 94640; 96372; 97110; 97161; 99284; J1100; J1650; J3535

== ENCOUNTER 2020-03-17 09:28 | Inpatient (IN) | payer MEDICARE, OTHER, SELFPAY ==
[2020-03-17] VITALS (22 sets, daily range): BP systolic 141–189; BP diastolic 70–121; PULSE 71–87; RESP 13–25; TEMP 36.6–37.2; O2SAT 85–96; BMI 23.6; BMI 22.9
--- NOTE | 2020-03-17 09:40 | PC.NURSE ---
EKG done at 0940 and shown to ER doctor
--- NOTE | 2020-03-17 09:57 | XR_ITS ---
WS: [id number] XR chest 1V portable [id number] REASON FOR EXAM: dyspnea FINDINGS: Exam is somewhat overexposed taking it a little difficult to compare to previous examinations, jessica thompson it appears that the patient is developing a interstitial infiltrative pattern in the central and pe ripheral right lung compared to previous examination of 03/07/2020. Chest is otherwise unchanged compared to previous examination 03/07/2020. XR/XR chest 1V portable [id number] IMPRESSION: Possible new infiltrative process in the right lung. This should be resolved by the patient's scheduled CT scan of the chest which is to be performed today.
--- NOTE | 2020-03-17 09:59 | CT_ITS ---
WS: [id number] CT angio chest PE protcl [id number] REASON FOR EXAM: dyspnea, covid TECHNIQUE: Coronal and sagittal 2-D and MIP reformations. IV CONTRAST ADMINISTERED: 95 mL of Visipaque. TOTAL EXAM DLP: 1168.[address] scans at [facility] use at least one of these dose optimization techniques: automat ed exposure control; mA and/or kV adjustment per patient size (includes targeted exams where dose is matched to clinical indication); or iterative reconstruction. FINDINGS: Mediastinum and hilum. Normal caliber pulmonary arteries with no emboli identified. Patient is status post coronary artery bypass surgery. There is tortuosity and ectasia of the thoracic aorta which is unchanged compared to previous examina tion of 11/24/2019. A sending aorta and aortic arch are in excess of 5 cm in diameter. Minor hilar adenopathy on the right with small mediastinal nodes unchanged compared to 11/24/2019. Pulmonary parenchyma and pleura: There is underlying cystic change diffusely throughout both lungs compatible with central lobar emphy sema. Currently superimposed on this abnormal lung pattern is a diffuse interstitial infiltrative pro cess in both lungs, upper, mid, and lower. The infiltrative pattern appears most confluent in the sub pleural regions most notably the right upper lung. There are small amounts of pleural fluid bilaterally. Bony thorax: Plate and screw fixation of multiple left ribs. Degenerative spondylosis in the mid and lower thoracic spine, moderate for age. CT/CT angio chest PE protcl [id number] IMPRESSION: Interval development of diffuse interstitial infiltrative process compared to t he previous examination. Based on a series of more recent portable chests film s this abnormality is acute/subacute. The first consideration for this abnormality would be congestive heart failure with the findings representing diffuse interstitial edema. Less likely this wou ld be an inflammatory process due to the diffuse and somewhat symmetric nature. Characteristics of this infiltrative process are altered by the fact that it i s superimposed on abnormal lung invalidating the usual pattern recognition. Can not exclude that this is Covid related pneumonitis, but is not typical of the i nfiltrates seen on other Covid aged patients.
--- NOTE | 2020-03-17 10:07 | ED_ITS ---
HPI - SOB/Dyspnea General: Chief Complaint: Shortness of Breath/Dyspnea Stated Complaint: COUGH, SOB Time Seen by Provider: 03/17/20 09:49 History of Present Illness: HPI Narrative: 84-year-old male who was recently hospitalized on 03/07. He has multiple comorbidities. He was brought to the hospital with increasing cough and shortness of breath and found to be Covid positive. He was discharged the following day was doing well and was sent home on oxygen. He was given Lovenox during hospitalization but he has not been on any oral anticoagulants. Comes in today complaining of worsening shortness of breath despite his home O2 he continues to be short of breath he was tachypneic and hypoxic on arrival. On a nonrebreather at 10 L/min he satting in the low 90s. Previously he had been on just 2 L/min. He has persistent cough that is nonproductive. He also has myalgias. He denies any diarrhea. MD elicited complaint: shortness of breath and cough Pertinent past history: COPD and congestive heart failure Onset (ago): day(s) Context: recent illness (COVID-19) Timing: constant Severity: severe Exacerbating factors: exertion and coughing Relieving factors: oxygen and rest Known history of: other (Temporal arteritis, abdominal aortic aneurysm, chronic anemia chronic severe aortic regurgitation chronic kidney disease) Associated symptoms: Reports chest congestion, cough, lightheadedness and orthopnea; Deny abdominal pain, chest pain, diaphoresis, dizziness, extremity pain, fever(s), hemoptysis, myalgias, nausea, palpitations, paresthesias, polydipsia, polyuria, rash, sense of impending doom, syncope or vomiting Treatment prior to arrival: oxygen Review of Systems Const: Denies: fever(s) or diaphoresis ENMT: Denies: throat pain, ear or mastoid pain, nasal discharge or nasal congestion Card: Reports: lightheadedness and orthopnea; Denies: chest pain, palpitations or syncope Resp: Reports: chest congestion; Denies: hemoptysis GI: Denies: abdominal pain, nausea or vomiting : Denies: flank pain, dysuria, urinary frequency or urinary urgency Musc: Denies: extremity pain Skin/Breast: Denies: rash or pruritus Neuro: Denies: dizziness Endo: Denies: polyuria or polydipsia PFSH ED PFSH: Medical History Abdominal aortic aneurysm (AAA) Acute renal failure Anemia Aneurysm Aortic regurgitation Bilateral ureteral obstruction Bladder outlet obstruction Carotid arterial disease Carpal tunnel syndrome Chronic cystitis Chronic kidney disease (CKD) Chronic neck pain with history of cervical spinal surgery Chronic UTI (urinary tract infection) COPD (chronic obstructive pulmonary disease) COVID-19 CVA (cerebral vascular accident) Dyslipidemia Gastroesophageal reflux History of rib fracture Hypertension Osteoarthritis Peripheral vascular disease Renal artery stenosis Sepsis 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 TIA (transient ischemic attack) Surgical History H/O aortic valve replacement H/O colonoscopy 2016 H/O endarterectomy H/O esophagogastroduodenoscopy 2016 H/O rotator cuff surgery History of aortic valve replacement with bioprosthetic valve History of biopsy of temporal artery (12/21/19) History of carotid endarterectomy History of cataract extraction History of endovascular stent graft for abdominal aortic aneurysm (AAA) History of ureter stent Hx of appendectomy Hx of transurethral resection of prostate S/P decompression of ulnar nerve at elbow Family History Father Heart attack CAD (coronary artery disease) Denies family history of Anesthesia complication Bleeding disorder Social History Smoking and tobacco status: former smoker Quit status (tobacco): has quit using tobacco Year quit tobacco: 2006 PPD x 50 Years Alcohol intake: never Lives independently: Yes Household members: spouse Marital status: service: No Current occupational status: retired History of recent travel: No Current gender identity: Male Zohra/Confucianism: Pentecostalism Physical Exam Const: COMMON NORMALS: no acute distress GENERAL APPEARANCE: cooperative and comfortable ORIENTATION/CONSCIOUSNESS: Yes awake, Yes oriented to person, Yes oriented to place and Yes oriented to time HENMT: COMMON NORMALS: normocephalic, atraumatic and hearing grossly normal bilaterally HEAD & SCALP: normocephalic and atraumatic Neck/C-Spine: COMMON NORMALS: no JVD Resp: AUSCULTATION: rhonchi and wheezes Cardio: COMMON NORMALS: no JVD, regular rate, regular rhythm and No murmurs present (Cardio) RATE: regular rate RHYTHM: regular rhythm GI: COMMON NORMALS: Soft to palpation and No hepatosplenomegaly present AUSCULTATION: Yes normoactive bowel sounds PALPATION: Yes Soft to palpation, No Tenderness to palpation present (GI), No Guarding due to palpation present (GI) and Yes No hepatosplenomegaly present Extremity: COMMON NORMALS: normal to inspection, capillary refill normal, no clubbing, cyanosis or edema, no calf tenderness and no pedal edema Neuro: SENSORIUM/ORIENTATION: Yes oriented to person, Yes oriented to place and Yes oriented to time Skin: COMMON NORMALS: no rashes or lesions noted GENERAL SKIN EXAM: no rashes or lesions noted Course Vital Signs: Vital signs: Vital Signs Temperature 97.7 F 03/19/20 06:00 Pulse Rate 67 03/19/20 06:03 Respiratory Rate 18 03/19/20 06:03 Blood Pressure 137/86 03/19/20 06:00 Pulse Oximetry 95 03/19/20 06:03 MDM - SOB/Dyspnea MDM Narrative: Medical decision making narrative: Patient has significant Covid. We will go ahead and admit him discussed with the hospitalist orders are written Lab Data: Labs: Lab Results 03/17/20 03/17/20 03/17/20 Range/Units 10:00 10:00 10:00 WBC 9.6 (4.0-10.0) 10^3/ uL RBC 4.24 (4.1-5.3) 10^6/u L Hgb 9.7 L (11.7-16.6) g/dL Hct 32.7 L (42.0-52.0) % MCV 77.1 L (80-94) fL MCH 22.9 L (28.0-34.0) pg MCHC 29.7 L (30.0-36.0) g/dL RDW 19.1 H (12.1-15.1) % Plt Count 289 (130-400) 10^3/c mm MPV 9.5 (7.4-10.4) fL Neut % (Auto) 89.6 % Lymph % (Auto) 6.8 % [place] % (Auto) 3.2 % Eos % (Auto) 0.0 % Baso % (Auto) 0.0 % Neut # (Auto) 8.63 H (1.8-7.7) 10^3/u L Lymph # (Auto) 0.7 L (0.8-4.8) 10^3/u L [place] # (Auto) 0.3 (0.2-0.9) 10^3/u L Eos # (Auto) 0.0 (0.0-0.8) 10^3/u L Baso # (Auto) 0.0 (0.0-0.1) 10^3/u L Nucleated RBC % (a uto) 0.2 % Nucleated RBCs # 0.0 /100WBC Fibrinogen 778 H (174-498) mg/dL D-Dimer 3.70 H (0-0.59) ug/mIFE U Specimen Type Sample Site ABG pH (7.35-7.45) ABG pCO2 (35-45) mmHg ABG pO2 (80.0-100.0) mmH g ABG HCO3 (22-26) mmol/L ABG Base Excess (-2.0-2.0) mmol/ L Liam Test Hematocrit (42-52) % O2 Delivery Device O2 Liters/Min % Bundle Person ID Sodium 135 L (136-145) mmol/L Potassium 4.4 (3.5-5.1) mmol/L Chloride 100 (98-107) mmol/L Carbon Dioxide 20 L (22-29) mmol/L Anion Gap 19.4 H (5-19) BUN 36 H (8-23) mg/dL Creatinine 1.8 H (0.7-1.2) mg/dL GFR Calculation Not Reportable Glucose 95 (65-115) mg/dL Calculated Osmolal ity 288 (285-295) mOsm/k g Lactic Acid (0.5-2.2) mmol/L Calcium 9.0 (8.5-10.5) mg/dL Total Bilirubin 0.3 (0.15-1.2) mg/dL AST 27 (0-40) U/L ALT 20 (0-41) U/L Alkaline Phosphata se 60 (40-130) IU/L Lactate Dehydrogen ase 408 H (135-225) U/L C-Reactive Protein 94.1 H (0.0-4.9) mg/L NT-Pro-B Natriuret Pep 2057 H (0-450) pg/mL Total Protein 6.8 (6.6-8.7) g/dL Albumin 3.0 L (3.5-5.2) g/dL Globulin 3.8 (1.3-4.6) g/dL Procalcitonin 0.56 H (0-0.5) ng/mL 03/17/20 03/17/20 Range/Units 10:00 10:37 WBC (4.0-10.0) 10^3/ uL RBC (4.1-5.3) 10^6/u L Hgb (11.7-16.6) g/dL Hct (42.0-52.0) % MCV (80-94) fL MCH (28.0-34.0) pg MCHC (30.0-36.0) g/dL RDW (12.1-15.1) % Plt Count (130-400) 10^3/c mm MPV (7.4-10.4) fL Neut % (Auto) % Lymph % (Auto) % [place] % (Auto) % Eos % (Auto) % Baso % (Auto) % Neut # (Auto) (1.8-7.7) 10^3/u L Lymph # (Auto) (0.8-4.8) 10^3/u L [place] # (Auto) (0.2-0.9) 10^3/u L Eos # (Auto) (0.0-0.8) 10^3/u L Baso # (Auto) (0.0-0.1) 10^3/u L Nucleated RBC % (a uto) % Nucleated RBCs # /100WBC Fibrinogen (174-498) mg/dL D-Dimer (0-0.59) ug/mIFE U Specimen Type Arterial Sample Site Radial, right ABG pH 7.44 (7.35-7.45) ABG pCO2 32.1 L (35-45) mmHg ABG pO2 63.1 L (80.0-100.0) mmH g ABG HCO3 21.6 L (22-26) mmol/L ABG Base Excess -2.2 L (-2.0-2.0) mmol/ L Liam Test Pos Hematocrit 28.9 L (42-52) % O2 Delivery Device Nrb O2 Liters/Min 10.0 % Bundle Person ID glc Sodium (136-145) mmol/L Potassium (3.5-5.1) mmol/L Chloride (98-107) mmol/L Carbon Dioxide (22-29) mmol/L Anion Gap (5-19) BUN (8-23) mg/dL Creatinine (0.7-1.2) mg/dL GFR Calculation Glucose (65-115) mg/dL Calculated Osmolal ity (285-295) mOsm/k g Lactic Acid 2.0 (0.5-2.2) mmol/L Calcium (8.5-10.5) mg/dL Total Bilirubin (0.15-1.2) mg/dL AST (0-40) U/L ALT (0-41) U/L Alkaline Phosphata se (40-130) IU/L Lactate Dehydrogen ase (135-225) U/L C-Reactive Protein (0.0-4.9) mg/L NT-Pro-B Natriuret Pep (0-450) pg/mL Total Protein (6.6-8.7) g/dL Albumin (3.5-5.2) g/dL Globulin (1.3-4.6) g/dL Procalcitonin (0-0.5) ng/mL Discharge Plan Discharge Patient Disposition: Admitted As Inpatient Admit Provider: Davon Pate Clinical Impression: Severe acute respiratory syndrome coronavirus 2 (SARS-CoV-2) detected Condition: Stable Referrals: Edwar Peres MD [Primary Care Provider] - Interventions: ED Discharge Assessment Last Done: 03/17/20 12:46 ED Charges Last Done: 03/17/20 12:46 Discharge Date/Time: 03/17/20 12:47 Coding Level of Care Code ED Card Brusher for Chg Fwd Exam Comprehensive
[2020-03-17 10:15] LABS: Hematocrit 32.7 % (42.0-52.0); Hemoglobin 9.7 g/dL (11.7-16.6); Lymphocytes # 0.7 10^3/uL (0.8-4.8); Lymphocytes % 6.8 %; Mean Corpuscular HGB Conc 29.7 g/dL (30.0-36.0); Mean Corpuscular Hemoglobin 22.9 pg (28.0-34.0); Mean Corpuscular Volume 77.1 fL (80-94); Mean Platelet Volume 9.5 fL (7.4-10.4); Monocytes # 0.3 10^3/uL (0.2-0.9); Monocytes % 3.2 %; Neutrophils # 8.63 10^3/uL (1.8-7.7); Neutrophils % 89.6 %; Nucleated Red Blood Cells % 0.2 %; Platelet Count 289 10^3/cmm (130-400); Red Blood Count 4.24 10^6/uL (4.1-5.3); Red Cell Distribution Width 19.1 % (12.1-15.1); White Blood Count 9.6 10^3/uL (4.0-10.0)
[2020-03-17 10:29] LABS: Fibrinogen 778 mg/dL (174-498)
[2020-03-17] MEDS: iohexol 350 mg/mL 100 mL Btl IV (10:35)
[2020-03-17 10:44] LABS: NT Pro B Type Natriuretic Pept 2057 pg/mL (0-450); Procalcitonin 0.56 ng/mL (0-0.5)
[2020-03-17 10:47] LABS: ABG PCO2 32.1 mmHg (35-45); ABG PH Result 7.44 (7.35-7.45); Arterial Blood Gas Hematocrit 28.9 % (42-52); Base Excess ABG -2.2 mmol/L (-2.0-2.0); Blood Gas Allen Test Pos; Blood Gas Sample Type Arterial; HCO3 ABG 21.6 mmol/L (22-26); PO2 ABG 63.1 mmHg (80.0-100.0)
[2020-03-17 10:48] LABS: Blood Gas Operator Identificat glc; Blood Gas Sample Site Radial, right; Oxygen Device NRB
[2020-03-17 10:55] LABS: Alanine Aminotransferase 20 U/L (0-41); Alkaline Phosphatase 60 IU/L (40-130); Anion Gap 19.4 (5-19); Aspartate Amino Transferase 27 U/L (0-40); Blood Urea Nitrogen 36 mg/dL (8-23); C Reactive Protein 94.1 mg/L (0.0-4.9); Carbon Dioxide 20 mmol/L (22-29); Chloride 100 mmol/L (98-107); Globulin 3.8 g/dL (1.3-4.6); Glucose 95 mg/dL (65-115); Lactate Dehydrogenase 408 U/L (135-225); Osmolality Calculated 288 mOsm/kg (285-295); Potassium 4.4 mmol/L (3.5-5.1); Sodium 135 mmol/L (136-145); Total Bilirubin 0.3 mg/dL (0.15-1.2); Total Protein 6.8 g/dL (6.6-8.7)
[2020-03-17] MEDS: dexamethasone 4 mg/mL INJ 10 MG IVP (11:10)
--- NOTE | 2020-03-17 13:11 | ECG_ITS ---
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
--- NOTE | 2020-03-17 13:22 | PC.NURSE ---
Performed in ER per RN
[2020-03-17] MEDS: HYDROcodone-acetaminophen 5-325 mg Tablet 1 TAB PO ×2 (14:12→20:08)
[2020-03-17] MEDS: ALPRAZolam 0.25 mg Tablet 0.5 MG PO ×2 (14:12→20:07)
[2020-03-17] MEDS: albuterol 8 gm MDI 2 PUFF INHALATION ×2 (14:28→20:44)
--- NOTE | 2020-03-17 14:41 | P.HP_ITS ---
Providers/Chief Complaint Admitting Physician: Davon Pate Primary Care Provider: Edwar Peres MD Chief Complaint: COUGH, SOB History of Present Illness Sher Monroy is a 84 year old pleasant gentleman with a number of comorbidities, recently hospitalized for COVID-19 pneumonia, at which time was discharged on 2 L nasal cannula, reports that after several days started feeling progressively worse, and this morning was extremely short of breath, with even minimal exertion. He states that he increased his oxygen flow at home from 2 L to 2-1/2 L, but even with that was short of breath. This prompted him to come to ER. In ER he is noted hypoxic requiring 10-12 L by nonrebreather. PO2 64. With nonrebreather he is feeling a bit better. Switch to high flow cannula currently at 12 L, saturating 92%. Respiratory rate 16. Provides his own history. He denies chest pain or pressure, but does describe pleuritic discomfort with deep inspiration. CRP is 94.1. D-dimer testing is delayed due to lack of reagent in the lab. CTA showing diffuse interstitial infiltrative process, not appearing like typical pneumonia from COVID-19, but superimposed on abnormal along with advanced emphysema. No PE. Yesterday he was started on an fluconazole by his primary care provider. Cefuroxime for respiratory worsening in setting of COPD, and fluconazole for ur ogenital yeast infection per patient. He is noted hypertensive, which she says is not unusual for him when he is in healthcare settings. He reports recently some hematuria with red urine but not dark/opaque. He reports that he has ureteral stents which are overdue for exchange of which Dr. Tolbert is aware having delayed exchange to about 4 months. Review of Systems Const: Reports: fatigue; Denies: fever(s), chills, body aches or malaise Eyes: Denies: change in vision or eye redness ENMT: Denies: throat pain, oral sores or ear or mastoid pain Card: Denies: chest pain, edema, swelling of feet/ankles, pre-syncope, dyspnea on exertion or orthopnea Resp: Reports: dyspnea, non-productive cough and pain on inspiration; Denies: productive cough, change in phlegm color or hemoptysis GI: Denies: abdominal pain, nausea, vomiting, diarrhea, constipation, hematochezia or melena : Denies: flank pain, difficulty urinating, urinary frequency or hematuria Musc: Denies: back pain, joint swelling or joint redness Skin/Breast: Denies: rash, sores or new lesions Neuro: Denies: headache(s), numbness in extremities, weakness in extremities, dizziness, confusion or seizure-like activity Endo: Denies: polyuria or polydipsia Jason/Lymph: Denies: easy bleeding or purpura All/Imm: Denies: urticaria, throat swelling or tongue swelling Medications/Allergies Home Medications Medication Instructions Recorded Confirmed Last Taken Type alprazolam 0.5 mg PO TID PRN 05/13/19 03/17/20 03/17/20 History diphenhydramine-acetaminophen 1 tab PO BEDTIME PRN 05/13/19 03/17/20 03/16/20 History [Tylenol PM Extra Strength] duloxetine [Cymbalta] 30 mg PO DAILY 05/13/19 03/17/20 03/17/20 History hydrocodone-acetaminophen [[place]] 1 tab PO Q6H PRN 05/13/19 03/17/20 03/17/20 History pantoprazole 40 mg PO BID 05/13/19 03/17/20 03/17/20 History albuterol sulfate 90 mcg/actuation 2 puff INHALATION Q6H PRN 30 Days 12/14/19 03/17/20 03/17/20 Rx aerosol inhaler #18 gm polyethylene glycol 3350 17 gram 17 g PO BEDTIME 03/01/20 03/17/20 03/16/20 History oral powder packet prednisone 5 mg tablet 20 mg PO DAILY tab 03/01/20 03/17/20 03/17/20 History tiotropium 2.5 mcg-olodaterol 2.5 2 puff INHALATION Q24H 30 Days #4 03/01/20 03/17/20 03/17/20 Rx mcg/actuation mist for inhalation gm carvedilol 6.25 mg PO BID 03/07/20 03/17/20 03/17/20 History cefuroxime axetil 500 mg PO BID 03/17/20 03/17/20 03/17/20 History fluconazole 150 mg PO DAILY 03/17/20 03/17/20 03/17/20 History Allergies Allergy/AdvReac Type Severity Reaction Status Date / Time No Known Allergies Allergy Verified 03/17/20 09:38 PFSH Acute PFSH: Medical History Abdominal aortic aneurysm (AAA) Acute renal failure Anemia Aneurysm Aortic regurgitation Bilateral ureteral obstruction Bladder outlet obstruction Carotid arterial disease Carpal tunnel syndrome Chronic cystitis Chronic kidney disease (CKD) Chronic neck pain with history of cervical spinal surgery Chronic UTI (urinary tract infection) COPD (chronic obstructive pulmonary disease) COVID-19 CVA (cerebral vascular accident) Dyslipidemia Gastroesophageal reflux History of rib fracture Hypertension Osteoarthritis Peripheral vascular disease Renal artery stenosis Sepsis 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 TIA (transient ischemic attack) Surgical History H/O aortic valve replacement H/O colonoscopy 2016 H/O endarterectomy H/O esophagogastroduodenoscopy 2017 H/O rotator cuff surgery History of aortic valve replacement with bioprosthetic valve History of biopsy of temporal artery (12/21/19) History of carotid endarterectomy History of cataract extraction History of endovascular stent graft for abdominal aortic aneurysm (AAA) History of ureter stent Hx of appendectomy Hx of transurethral resection of prostate S/P decompression of ulnar nerve at elbow Family History Father Heart attack CAD (coronary artery disease) Denies family history of Anesthesia complication Bleeding disorder Social History Smoking and tobacco status: former smoker Quit status (tobacco): has quit using tobacco Year quit tobacco: 2006 PPD x 50 Years Alcohol intake: never Lives independently: Yes Household members: spouse Marital status: service: No Current occupational status: retired History of recent travel: No Current gender identity: Male Zohra/Denominational: Mandaeism Vitals/I&O/Wt Last Vital Signs Temp 98.0 F 03/17/20 13:00 Pulse 80 03/17/20 14:32 Resp 16 03/17/20 14:32 BP 189/121 03/17/20 13:00 Pulse Ox 92 03/17/20 14:32 Weight last 48 hrs Weight 72.575 kg Weight 74.843 kg Physical Exam Const: COMMON NORMALS: no acute distress, patient oriented x3 and alert GENERAL APPEARANCE: cooperative ORIENTATION/CONSCIOUSNESS: Yes awake OTHER: He is awake, alert, able to provide his own history. High flow cannula in place. HENMT: COMMON NORMALS: oropharynx normal Neck/C-Spine: COMMON NORMALS: no JVD Resp: COMMON NORMALS: normal respiratory effort and clear to auscultation bilaterally AUSCULTATION: diminished lung sounds (Slightly diminished, prolonged expiratory phase) Cardio: COMMON NORMALS: no JVD, regular rhythm, S1 normal heart sound present, S2 normal heart sound present and No murmurs present (Cardio) RHYTHM: regular rhythm HEART SOUNDS: S1 normal heart sound present and S2 normal heart sound present GI: COMMON NORMALS: Normal to inspection, nondistended, normoactive bowel sounds present, Soft to palpation and non-tender PALPATION: Yes Soft to palpation Extremity: COMMON NORMALS: no joint enlargement and no pedal edema Neuro: COMMON NORMALS: patient oriented x3 and moves all extremities Skin: COMMON NORMALS: no rashes or lesions noted GENERAL SKIN EXAM: no rashes or lesions noted Data : 03/17/20 10:00 03/17/20 10:00 A&P Assessment and plan (1) Severe acute respiratory syndrome coronavirus 2 (SARS-CoV-2) detected: Acute hypoxic rest emilee failure with severe COVID-19 pneumonia, with underlying COPD emphysema. No signs of fluid overload. No definitive/is evidence of bacterial pneumonia, but cannot completely exclude. No sepsis currently. Oxygen support. High flow cannula at this time. Check sputum culture, bacterial antigens, MRSA PCR. Creatinine clearance 31. Remdesivir. Decadron. Empirically Levaquin. Flutter valve. IS. Discussed the VT prophylaxis with him. SCDs are ordered. Discussed also high concern for high risk of VTE. He is agreeable for additional rate prophylaxis with Lovenox in spite of recent and hematuria. We will have to monitor hematuria in case of worsening/difficulties with urination/clot, may need [place] has been, manual irrigation. Admitted in VICU. 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 Discussed with his . He would like attempted resuscitation in case of cardiopulmonary arrest ( as long as I can be aware, otherwise my would be making any additional decisions ). Status: Acute Additional A&P Information Noted additional chronic conditions. Ureteral stents: Reports follows with Dr. Tolbert. They are overdue for exchange. Recently with some hematuria due to which aspirin has been held. He is planning to follow-up with Dr. Tolbert after he recovers to be scheduled for exchange. History of aortic valve replacement: Aspirin for now has been on hold. Recent genitourinary yeast infection: Was started on Diflucan by PCP yesterday. We will continue here. Underlying COPD: Follows with pulmonology. Here we will continue tiotropium. Albuterol. Steroid and antibiotic as above for pulmonary infection. 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 He has been tapered down so far to 12.5 mg prednisone daily. For now on hold with Decadron as above. History of TIA Renal artery stenosis Chronic kidney disease: Creatinine appears close to baseline. Monitor. HTN HLD Carotid artery disease Aortic regurgitation AAA Attestations Medical Necessity Statement*: Admission of over 2 midnights is going to be needed for assessment and management of severe COVID-19 pneumonia, respiratory failure, with underlying COPD, recent hematuria, and a number of additional comorbidities and cardiovascular disease. Coding Level of Care Code Acute Machine Molder for [facility] Fwd Exam Comprehensive Diagnoses Severe acute respiratory syndrome coronavirus 2 (SARS-CoV-2) detected U07.1
[2020-03-17] MEDS: enoxaparin 40 mg/0.4 mL Syringe SUBCUT (15:38)
[2020-03-17] MEDS: levoFLOXacin 750 mg Tablet PO (15:39)
[2020-03-17] MEDS: pantoprazole DR 40 mg Tablet PO (17:35)
[2020-03-17] MEDS: carvedilol 6.25 mg Tablet PO (17:35)
--- NOTE | 2020-03-17 21:14 | PC.NURSE ---
During nursing shift assessment, Patient explained that he normally takes Tylenol PM in the evenings for sleep. Patient was asked if he was in pain at this time. He acknowledged that he was in pain, and was feeling anxious. Increased respiratory rate noted. Education and direction given by RN for patient to try and take deep breaths. PRN PO [place] and Xanax given. New order from MD Lucia for Atarax PO ONCE PRN for anxiety and sleep. No needs verbalized at this time. Patient resting comfortably.
[2020-03-18] VITALS (29 sets, daily range): BP systolic 104–180; BP diastolic 64–118; PULSE 66–84; RESP 13–26; TEMP 36.4–37.1; O2SAT 84–98
--- NOTE | 2020-03-18 00:14 | PC.NURSE ---
New Orders: V/O given by MD Lucia astronomy teacher for Norvasc PO daily, and for Labetalol IVP PRN given for HTN s/s.
[2020-03-18] MEDS: labetalol 5 mg/mL SDV 20mL 10 MG IVP (03:26)
[2020-03-18 04:28] LABS: Hematocrit 32.9 % (42.0-52.0); Hemoglobin 9.7 g/dL (11.7-16.6); Lymphocytes # 0.6 10^3/uL (0.8-4.8); Lymphocytes % 11.4 %; Mean Corpuscular HGB Conc 29.5 g/dL (30.0-36.0); Mean Corpuscular Hemoglobin 22.6 pg (28.0-34.0); Mean Corpuscular Volume 76.7 fL (80-94); Mean Platelet Volume 9.9 fL (7.4-10.4); Monocytes # 0.1 10^3/uL (0.2-0.9); Monocytes % 2.6 %; Neutrophils # 4.66 10^3/uL (1.8-7.7); Neutrophils % 85.6 %; Nucleated Red Blood Cells % 0 %; Platelet Count 276 10^3/cmm (130-400); Red Blood Count 4.29 10^6/uL (4.1-5.3); Red Cell Distribution Width 19.2 % (12.1-15.1); White Blood Count 5.4 10^3/uL (4.0-10.0)
[2020-03-18 04:49] LABS: D Dimer 2.76 ug/mIFEU (0-0.59)
--- NOTE | 2020-03-18 04:49 | PC.NURSE ---
New Orders: v/o for Clonidine Q12H given by MD Lucia. Patient continues to exhibit SBP between 190's-200. PRN Labetalol IVP given, with little change noted. phoned on new results and updated on pt condition. V/O given to add new medications to patient MAR.
[2020-03-18 05:20] LABS: Alanine Aminotransferase 18 U/L (0-41); Albumin Level 2.9 g/dL (3.5-5.2); Alkaline Phosphatase 58 IU/L (40-130); Anion Gap 17.6 (5-19); Aspartate Amino Transferase 23 U/L (0-40); Blood Urea Nitrogen 33 mg/dL (8-23); Calcium 8.9 mg/dL (8.5-10.5); Carbon Dioxide 21 mmol/L (22-29); Chloride 102 mmol/L (98-107); Creatinine Clr Calc Pharmacy 37.0894; Globulin 3.5 g/dL (1.3-4.6); Glucose 98 mg/dL (65-115); Osmolality Calculated 289 mOsm/kg (285-295); Potassium 4.6 mmol/L (3.5-5.1); Sodium 136 mmol/L (136-145); Total Bilirubin 0.2 mg/dL (0.15-1.2); Total Protein 6.4 g/dL (6.6-8.7)
[2020-03-18 05:21] LABS: C Reactive Protein 109.2 mg/L (0.0-4.9)
[2020-03-18] MEDS: cloNIDine 0.1 mg Tablet PO ×2 (05:41→16:34)
[2020-03-18] MEDS: HYDROcodone-acetaminophen 5-325 mg Tablet 1 TAB PO (06:30)
[2020-03-18] MEDS: ALPRAZolam 0.25 mg Tablet 0.5 MG PO (06:30)
--- NOTE | 2020-03-18 06:34 | PC.NURSE ---
Shift Summary: Patient SBP and DBP has been elevated on and off throughout shift. In early AM hours, SBP raised to over 200. MD Lucia supervisor photocomposition was phoned three times throughout shift to give updates on patient status, and to receive any new orders. Labatelol IVP given 1X Hydrocodone PO X2 Xanax PO X2 Clonidine X1. 700 u/o 60% and 50L [place]. RT currently rounding on patient and has bumped settings up based on SPO2 staying between 84-89% Nightshift RT updated on patient SPO2 levels throughout shift as well, and rounded. Nursing interventions able to raise levels with instructions on cough/deep breathing exercises. SBP maintaining anywhere from 160's-190's currently. Pt c/o some pain in lower back. Most recent PO pain medications given in efforts to decrease those pain levels/aid in decreasing BP. Education and nursing measures given for decreased SPO2, and need to continue taking deep breaths slowly. Pt stated he only takes Coreg at home and has had a long medical Hx of HTN. Verbalizes need for new medications in order to better manage. Report given to claudine dayshift RN.
[2020-03-18] MEDS: albuterol 8 gm MDI 2 PUFF INHALATION ×3 (08:56→20:55)
[2020-03-18] MEDS: dexamethasone 4 mg/mL INJ 6 MG IVP (09:02)
[2020-03-18] MEDS: amlodipine 10 mg Tablet PO (09:02)
[2020-03-18] MEDS: pantoprazole DR 40 mg Tablet PO ×2 (09:02→17:18)
[2020-03-18] MEDS: fluconazole 100 mg Tablet 150 MG PO (09:03)
[2020-03-18] MEDS: duloxetine 30 mg Capsule PO (09:04)
[2020-03-18] MEDS: carvedilol 6.25 mg Tablet PO ×2 (09:04→17:18)
[2020-03-18] MEDS: hyDROXYzine 25 mg Capsule PO (09:04)
[2020-03-18] MEDS: enoxaparin 40 mg/0.4 mL Syringe SUBCUT (13:52)
--- NOTE | 2020-03-18 15:33 | PC.RESP ---
Pulmonary Rehab information sent to patient.
--- NOTE | 2020-03-18 18:15 | PC.NURSE ---
Per RT Flako (who was on phone with MD) stated MD wanted patient to be proned. I informed RT that patient has back and neck issues and would need to give patient some pain and anxiety medicine first. When RT went in to talk to patient about proning, patient turned over on belly. RT came and told me. I then went to check on patient and patient was facedown on the bed and looked very uncomfortable. He told me he would try to lay on his belly, but he was unable to turn his head. Patient stated he did not know how long he could lay like that but he would rather lay on his side. I then turned patient over on his side to make him more comfortable and something he could sustain for a longer amount of time.
--- NOTE | 2020-03-18 20:10 | PM.PN ---
Subjective Subjective: Interval history: Today subjectively he feels he is doing little bit better. He has been working with incentive spirometry, flutter valve. Denies chest pain. Appetite says has been fair has tried to eat a little bit. No nausea vomiting or diarrhea. Vitals/I&O/Wt Last Vital Signs Temp 98.1 F 03/18/20 19:45 Pulse 72 03/18/20 19:45 Resp 21 H 03/18/20 19:45 BP 137/84 03/18/20 19:45 Pulse Ox 88 L 03/18/20 19:45 03/18/20 03/18/20 03/18/20 06:59 14:59 22:59 Intake Total 600 / 1050 540 / 540 200 / 740 Output Total 700 / 925 450 / 450 300 / 750 Balance -100 / 125 90 / 90 -100 / -10 Weight last 48 hrs Weight 72.575 kg Weight 74.843 kg Physical Exam Const: COMMON NORMALS: no acute distress, patient oriented x3 and alert GENERAL APPEARANCE: cooperative ORIENTATION/CONSCIOUSNESS: Yes awake OTHER: Sitting in a chair. He is awake, alert, able to provide his own history. High flow cannula in place. HENMT: COMMON NORMALS: oropharynx normal Neck/C-Spine: COMMON NORMALS: no JVD Resp: COMMON NORMALS: normal respiratory effort AUSCULTATION: no wheezes, diminished lung sounds and bronchial breath sounds Cardio: COMMON NORMALS: no JVD, regular rhythm, S1 normal heart sound present, S2 normal heart sound present and No murmurs present (Cardio) RHYTHM: regular rhythm HEART SOUNDS: S1 normal heart sound present and S2 normal heart sound present GI: COMMON NORMALS: Normal to inspection, nondistended, normoactive bowel sounds present, Soft to palpation and non-tender PALPATION: Yes Soft to palpation Extremity: COMMON NORMALS: no joint enlargement and no pedal edema Neuro: COMMON NORMALS: patient oriented x3 and moves all extremities SENSORIUM/ORIENTATION: Yes alert Skin: COMMON NORMALS: no rashes or lesions noted GENERAL SKIN EXAM: no rashes or lesions noted Data : 03/18/20 04:05 03/18/20 04:05 Micro: Microbiology 03/17/20 15:15 MRSA Culture - Final Nose 03/17/20 00:01 Bacterial Antigens - Final Urine,Voided 03/17/20 00:01 Legionella Urinary Antigen - Final Urine,Voided A&P Assessment and plan (1) Severe acute respiratory syndrome coronavirus 2 (SARS-CoV-2) detected: Acute hypoxic respiratory failure with severe COVID-19 pneumonia, with underlying COPD emphysema. Subjectively he feels little bit better, and actually was sitting in the chair for most of the day according to his wishes. Oxygenation somewhat worse today, FiO2 requirement increased, with current rate of 60% / 50 L on high flow cannula. Discussed with RT. BiPAP as needed. Since subjectively he is doing well, self prone. Continue remdesivir, Decadron. No reported hematuria. Continue Lovenox. Hemoglobin stable. No signs of fluid overload. No definitive evidence of bacterial pneumonia, but cannot completely exclude. No sepsis currently. Continue directly on Levaquin. Check sputum culture Negative bacterial antigens, MRSA PCR. Flutter valve. IS. Status: Acute Additional A&P Information Noted additional chronic conditions. Ureteral stents: Reports follows with Dr. Tolbert. They are overdue for exchange. Recently with some hematuria due to which aspirin has been held. He is planning to follow-up with Dr. Tolbert after he recovers to be scheduled for exchange. Monitor for hematuria. History of aortic valve replacement: Aspirin for now has been on hold due to recent reports of hematuria. Recent genitourinary yeast infection: Was started on Diflucan by PCP day prior to admission. Continue here. Underlying COPD: Follows with pulmonology. Here we will continue tiotropium. Albuterol. Steroid and antibiotic as above for pulmonary infection. 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 He has been tapered down so far to 12.5 mg prednisone daily. For now on hold with Decadron as above. History of TIA Renal artery stenosis Chronic kidney disease: Creatinine appears close to baseline. Monitor. HTN HLD Carotid artery disease Aortic regurgitation AAA Attestations Medical Necessity Statement*: Continue admission for cyst management of respiratory failure with hypoxia, severe COVID-19 pneumonia. Coding Level of Care Code Acute Electrical Project Manager for [facility] Fwd Diagnoses Severe acute respiratory syndrome coronavirus 2 (SARS-CoV-2) detected U07.1
[2020-03-18] MEDS: polyethylene glycol 3350 Pkt 17 gm PO (20:52)
[2020-03-19] VITALS (33 sets, daily range): BP systolic 94–147; BP diastolic 57–92; PULSE 62–79; RESP 16–26; TEMP 36.5–36.6; O2SAT 17–96
[2020-03-19] MEDS: HYDROcodone-acetaminophen 5-325 mg Tablet 1 TAB PO ×4 (00:32→21:12)
[2020-03-19] MEDS: albuterol 8 gm MDI 2 PUFF INHALATION ×3 (03:27→09:24)
[2020-03-19 04:59] LABS: Basophils % 0.1 %; Hematocrit 31.9 % (42.0-52.0); Hemoglobin 9.2 g/dL (11.7-16.6); Lymphocytes # 0.6 10^3/uL (0.8-4.8); Lymphocytes % 5.9 %; Mean Corpuscular HGB Conc 28.8 g/dL (30.0-36.0); Mean Corpuscular Hemoglobin 22.4 pg (28.0-34.0); Mean Corpuscular Volume 77.6 fL (80-94); Mean Platelet Volume 10.2 fL (7.4-10.4); Monocytes # 0.4 10^3/uL (0.2-0.9); Monocytes % 3.9 %; Neutrophils # 8.81 10^3/uL (1.8-7.7); Neutrophils % 89.4 %; Nucleated Red Blood Cells % 0.2 %; Platelet Count 299 10^3/cmm (130-400); Red Blood Count 4.11 10^6/uL (4.1-5.3); Red Cell Distribution Width 19.4 % (12.1-15.1); White Blood Count 9.9 10^3/uL (4.0-10.0)
[2020-03-19] MEDS: cloNIDine 0.1 mg Tablet PO ×2 (05:23→17:41)
[2020-03-19 05:29] LABS: C Reactive Protein 63.8 mg/L (0.0-4.9)
[2020-03-19 05:30] LABS: Alanine Aminotransferase 25 U/L (0-41); Albumin Level 2.8 g/dL (3.5-5.2); Alkaline Phosphatase 54 IU/L (40-130); Anion Gap 14.7 (5-19); Aspartate Amino Transferase 36 U/L (0-40); Blood Urea Nitrogen 38 mg/dL (8-23); Calcium 8.8 mg/dL (8.5-10.5); Carbon Dioxide 23 mmol/L (22-29); Chloride 103 mmol/L (98-107); Globulin 2.7 g/dL (1.3-4.6); Glucose 111 mg/dL (65-115); Osmolality Calculated 292 mOsm/kg (285-295); Potassium 4.7 mmol/L (3.5-5.1); Sodium 136 mmol/L (136-145); Total Bilirubin 0.2 mg/dL (0.15-1.2); Total Protein 5.5 g/dL (6.6-8.7)
[2020-03-19 05:43] LABS: D Dimer 3.18 ug/mIFEU (0-0.59)
[2020-03-19] MEDS: dexamethasone 4 mg/mL INJ 6 MG IVP (07:56)
[2020-03-19] MEDS: amlodipine 10 mg Tablet PO (07:57)
[2020-03-19] MEDS: pantoprazole DR 40 mg Tablet PO ×2 (07:57→17:41)
[2020-03-19] MEDS: fluconazole 100 mg Tablet 150 MG PO (07:59)
[2020-03-19] MEDS: carvedilol 6.25 mg Tablet PO ×2 (07:59→17:41)
[2020-03-19] MEDS: duloxetine 30 mg Capsule PO (07:59)
[2020-03-19] MEDS: levoFLOXacin 750 mg Tablet PO (14:40)
[2020-03-19] MEDS: enoxaparin 40 mg/0.4 mL Syringe SUBCUT (14:40)
[2020-03-19] MEDS: polyethylene glycol 3350 Pkt 17 gm PO (20:02)
--- NOTE | 2020-03-19 20:33 | P.PN_ITS ---
Subjective Subjective: Interval history: He is doing all right. Low bit weaker. Some tightness in his chest worse with deep inspiration. Unfortunately cannot tolerate self proning. No nausea or vomiting. Vitals/I&O/Wt Last Vital Signs Temp 97.8 F 03/19/20 20:00 Pulse 66 03/19/20 20:00 Resp 20 H 03/19/20 20:00 BP 119/74 03/19/20 20:00 Pulse Ox 17 L 03/19/20 20:00 03/19/20 03/19/20 03/19/20 06:59 14:59 22:59 Intake Total 400 / 1140 400 / 400 Output Total 800 / 1750 1300 / 1300 Balance -400 / -610 -900 / -900 Weight last 48 hrs Weight 72.62 kg Physical Exam Const: COMMON NORMALS: no acute distress, patient oriented x3 and alert GENERAL APPEARANCE: cooperative ORIENTATION/CONSCIOUSNESS: Yes awake OTHER: Reclined in bed. High flow cannula in place. HENMT: COMMON NORMALS: oropharynx normal Neck/C-Spine: COMMON NORMALS: no JVD Resp: COMMON NORMALS: normal respiratory effort AUSCULTATION: crackles and diminished lung sounds Cardio: COMMON NORMALS: no JVD, regular rhythm, S1 normal heart sound present, S2 normal heart sound present and No murmurs present (Cardio) RHYTHM: regular rhythm HEART SOUNDS: S1 normal heart sound present and S2 normal heart sound present GI: COMMON NORMALS: Normal to inspection, nondistended, normoactive bowel sounds present, Soft to palpation and non-tender PALPATION: Yes Soft to palpation Extremity: COMMON NORMALS: no joint enlargement and no pedal edema Neuro: COMMON NORMALS: patient oriented x3 and moves all extremities SENSORIUM/ORIENTATION: Yes alert Skin: COMMON NORMALS: no rashes or lesions noted GENERAL SKIN EXAM: no rashes or lesions noted Data : 03/19/20 04:05 03/19/20 04:05 Micro: Microbiology 03/17/20 15:15 MRSA Culture - Final Nose A&P Assessment and plan (1) Severe acute respiratory syndrome coronavirus 2 (SARS-CoV-2) detected: Acute hypoxic respiratory failure with severe COVID-19 pneumonia, with underlying COPD emphysema. Somewhat worse today, appears little bit weaker. FiO2 appears stabilized around 60%. Unfortunately could not self prone. Continue remdesivir, Decadron, oxygen support, wean off as tolerating. D-dimer is somewhat higher today. Continue Lovenox prophylaxis. He is at concern with regards to hematuria. If D-dimer continues to rise, may need to consider raising to therapeutic anticoagulation. Will reassess in the morning, discussed. No signs of fluid overload. No definitive evidence of bacterial pneumonia, but cannot completely exclude. No sepsis currently. Continue directly on Levaquin. Ordered sputum culture Negative bacterial antigens, MRSA PCR. Flutter valve. IS. Status: Acute Additional A&P Information Noted additional chronic conditions. Ureteral stents: Reports follows with Dr. Tolbert. They are overdue for exchange. Recently with some hematuria due to which aspirin has been held. He is planning to follow-up with Dr. Tolbert after he recovers to be scheduled for exchange. Monitor for hematuria. History of aortic valve replacement: Aspirin for now has been on hold due to recent reports of hematuria. Recent genitourinary yeast infection: Received 3 days of Diflucan as prescribed. Underlying COPD: Follows with pulmonology. Here we will continue tiotropium. Albuterol. Steroid and antibiotic as above for pulmonary infection. 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 He has been tapered down so far to 12.5 mg prednisone daily. For now on hold with Decadron as above. History of TIA Renal artery stenosis Chronic kidney disease: Creatinine appears close to baseline. Monitor. HTN HLD Carotid artery disease Aortic regurgitation AAA Attestations Medical Necessity Statement*: Continue admission for assessment of management of respiratory failure with severe COVID-19 infection, possible superimposed bacterial pulmonary infection. Coding Level of Care Code Acute [facility] Development [facility] Severe acute respiratory syndrome coronavirus 2 (SARS-CoV-2) detected U07.1
--- NOTE | 2020-03-19 22:57 | PC.NURSE ---
Patient resting in room on right side. Patient has crackles noted throughout lower bases and is currently on Heated High flow NC. Patient is on 50 L and 60% FIO2 and sats are maintaining 92 at this time. Patient is able to voice concerns and make needs known. Patient did report pain earlier and PRN hydrocodone was given per orders. Pain has resolved at this time. Call hernandez is within reach. Continue care.
[2020-03-20] VITALS (47 sets, daily range): BP systolic 89–157; BP diastolic 51–88; PULSE 62–78; RESP 13–28; TEMP 36.4–36.8; O2SAT 81–98
[2020-03-20] MEDS: ALPRAZolam 0.25 mg Tablet 0.5 MG PO ×2 (01:51→21:54)
[2020-03-20] MEDS: cloNIDine 0.1 mg Tablet PO ×2 (04:06→17:09)
--- NOTE | 2020-03-20 05:23 | PC.NURSE ---
Patient resting in room with eyes open in bed at this time. Patient did voice pain and prn medication was given per orders earlier in the shift, then patient requested something to help sleep. PRN xanax given per orders to help relax and be able to rest. Patient is alert and orientated. Patient did complain of high flow cannula making nose sore, repositioned for comfort. Call light within reach. continue care.
[2020-03-20 05:25] LABS: Basophils % 0.1 %; Hematocrit 31.5 % (42.0-52.0); Hemoglobin 8.1 g/dL (11.7-16.6); Lymphocytes # 0.4 10^3/uL (0.8-4.8); Lymphocytes % 5.4 %; Mean Corpuscular HGB Conc 25.7 g/dL (30.0-36.0); Mean Corpuscular Volume 89.5 fL (80-94); Mean Platelet Volume 10.6 fL (7.4-10.4); Monocytes # 0.2 10^3/uL (0.2-0.9); Monocytes % 3.2 %; Neutrophils # 6.49 10^3/uL (1.8-7.7); Neutrophils % 90.6 %; Nucleated Red Blood Cells % 0 %; Platelet Count 146 10^3/cmm (130-400); Red Blood Count 3.52 10^6/uL (4.1-5.3); Red Cell Distribution Width 19.9 % (12.1-15.1); White Blood Count 7.2 10^3/uL (4.0-10.0)
[2020-03-20 06:06] LABS: Alanine Aminotransferase 46 U/L (0-41); Albumin Level 2.6 g/dL (3.5-5.2); Alkaline Phosphatase 54 IU/L (40-130); Aspartate Amino Transferase 49 U/L (0-40); Blood Urea Nitrogen 40 mg/dL (8-23); Calcium 8.9 mg/dL (8.5-10.5); Carbon Dioxide 21 mmol/L (22-29); Chloride 104 mmol/L (98-107); Globulin 3.2 g/dL (1.3-4.6); Glucose 102 mg/dL (65-115); Osmolality Calculated 290 mOsm/kg (285-295); Sodium 135 mmol/L (136-145); Total Bilirubin 0.3 mg/dL (0.15-1.2); Total Protein 5.8 g/dL (6.6-8.7)
[2020-03-20 06:07] LABS: C Reactive Protein 38.3 mg/L (0.0-4.9)
[2020-03-20 06:09] LABS: D Dimer 9.35 ug/mIFEU (0-0.59)
[2020-03-20 06:12] LABS: Anion Gap 14.7 (5-19); Potassium 4.7 mmol/L (3.5-5.1)
--- NOTE | 2020-03-20 06:26 | PC.NURSE ---
Patient resting in bed on right side. Patient did have a small episode of bowel incontinence. Call light within reach. continue care
[2020-03-20] MEDS: carvedilol 6.25 mg Tablet PO ×2 (08:27→17:09)
[2020-03-20] MEDS: duloxetine 30 mg Capsule PO (08:27)
[2020-03-20] MEDS: enoxaparin 80 mg/0.8 mL Syringe 70 MG SUBCUT (08:28)
[2020-03-20] MEDS: dexamethasone 4 mg/mL INJ 6 MG IVP (08:36)
[2020-03-20] MEDS: pantoprazole DR 40 mg Tablet PO ×2 (08:37→17:09)
[2020-03-20] MEDS: amlodipine 10 mg Tablet PO (08:37)
[2020-03-20] MEDS: albuterol 8 gm MDI 2 PUFF INHALATION ×2 (09:39→15:48)
[2020-03-20] MEDS: HYDROcodone-acetaminophen 5-325 mg Tablet 1 TAB PO ×2 (11:14→17:12)
--- NOTE | 2020-03-20 11:40 | PC.SOCIAL ---
IMM Page 2 of IMM expained to patient's spouse by phone. She verbalizes understanding. Initialed, dated, and timed and will be sent to medical records upon d/c to be scanned into patient's EHR.
[2020-03-20 15:42] LABS: Platelet Count 353 10^3/cmm (130-400)
[2020-03-20] MEDS: heparin drip 25,000 UNIT/500 ML PREMIX 28.2 UNIT IV (16:00)
--- NOTE | 2020-03-20 16:27 | PC.NURSE ---
Heparin gtt started at 20 ml/hr. See heparin flow sheet for further detail.
[2020-03-20 16:56] LABS: Partial Thromboplastin Time 38.2 SECONDS (23.9-36.7)
--- NOTE | 2020-03-20 20:11 | P.PN_ITS ---
Subjective Subjective: Interval history: He states he is doing fair. Notes some pleuritic chest discomfort with inspiration. Having some cough, feels like he cannot bring up phlegm very well. No nausea or vomiting. No abdominal discomfort. Vitals/I&O/Wt Last Vital Signs Temp 98 F 03/20/20 20:00 Pulse 66 03/20/20 20:00 Resp 17 03/20/20 20:00 BP 111/64 03/20/20 20:00 Pulse Ox 98 03/20/20 20:00 03/20/20 03/20/20 03/20/20 06:59 14:59 22:59 Intake Total 470 / 470 235 / 705 Output Total 400 / 1825 500 / 500 Balance -400 / -1085 -30 / -30 235 / 205 Weight last 48 hrs Weight 70.534 kg Weight 72.62 kg Physical Exam Const: COMMON NORMALS: no acute distress, patient oriented x3 and alert GENERAL APPEARANCE: cooperative ORIENTATION/CONSCIOUSNESS: Yes awake OTHER: Up in chair. High flow cannula in place. HENMT: COMMON NORMALS: oropharynx normal Neck/C-Spine: COMMON NORMALS: no JVD Resp: COMMON NORMALS: normal respiratory effort AUSCULTATION: crackles (Few coarse crackles) OTHER: Decent air entry Cardio: COMMON NORMALS: no JVD, regular rhythm, S1 normal heart sound present, S2 normal heart sound present and No murmurs present (Cardio) RHYTHM: regular rhythm HEART SOUNDS: S1 normal heart sound present and S2 normal heart sound present GI: COMMON NORMALS: Normal to inspection, nondistended, normoactive bowel sounds present, Soft to palpation and non-tender PALPATION: Yes Soft to palpation Extremity: COMMON NORMALS: no joint enlargement and no pedal edema Neuro: COMMON NORMALS: patient oriented x3 and moves all extremities SENSORIUM/ORIENTATION: Yes alert Skin: COMMON NORMALS: no rashes or lesions noted GENERAL SKIN EXAM: no rashes or lesions noted Data : 03/20/20 14:55 03/20/20 04:30 A&P Assessment and plan (1) Severe acute respiratory syndrome coronavirus 2 (SARS-CoV-2) detected: FiO2 requirement is somewhat worse today, up to 70% on high flow cannula. D-dimer up to 9.3. Discussed with him and we initiated therapeutic anticoagulation. At this time with heparin drip due to hematuria, also noted some minimal hemoptysis. Discussed with nursing staff to monitor for any worsening bleeding. In case worsening hematuria may need placement of Bingham, manual irrigation. Monitor for any worsening of hemoptysis. Monitor for fluid overload. Type and screen. Hold PRBC. He feels he cannot bring up phlegm very well. Will add Mucinex. Continue remdesivir, Decadron, oxygen support. Unfortunately does not tolerate proning. Incentive spirometry, flutter valve. Empiric antibiotic. Discussed with his . Acute hypoxic respiratory failure with severe COVID-19 pneumonia, with underlyi ng COPD emphysema. Uncollected sputum culture Negative bacterial antigens, MRSA PCR. Status: Acute Additional A&P Information Noted additional chronic conditions. Ureteral stents: Reports follows with Dr. Tolbert. They are overdue for exchange. Recently with some hematuria due to which aspirin has been held. He is planning to follow-up with Dr. Tolbert after he recovers to be scheduled for exchange. Monitor for hematuria. History of aortic valve replacement: Aspirin for now has been on hold due to recent reports of hematuria. Recent genitourinary yeast infection: Received 3 days of Diflucan as prescribed. Underlying COPD: Follows with pulmonology. Here we will continue tiotropium. Albuterol. Steroid and antibiotic as above for pulmonary infection. 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 He has been tapered down so far to 12.5 mg prednisone daily. For now on hold with Decadron as above. History of TIA Renal artery stenosis Chronic kidney disease: Creatinine appears close to baseline. Monitor. HTN HLD Carotid artery disease Aortic regurgitation AAA Attestations Medical Necessity Statement*: Continue admission for assessment management of acute hypoxic respiratory failure, severe COVID-19 pneumonia, concern for coagulopathy with concomitant hematuria, hemoptysis. With multiple underlying comorbidities. Coding Level of Care Code Acute Painter Assistant for [facility] Fwd Diagnoses Severe acute respiratory syndrome coronavirus 2 (SARS-CoV-2) detected U07.1
[2020-03-20] MEDS: guaiFENesin 600 mg Tablet 1200 MG PO (20:57)
[2020-03-20 22:27] LABS: Partial Thromboplastin Time 134.1 SECONDS (23.9-36.7)
[2020-03-21] VITALS (71 sets, daily range): BP systolic 91–166; BP diastolic 60–116; PULSE 63–89; RESP 8–30; TEMP 36.4–37.2; O2SAT 80–100
[2020-03-21] MEDS: sodium chloride 0.9% (100 ml) 100 ML 15 ML (00:28)
[2020-03-21] MEDS: HYDROcodone-acetaminophen 5-325 mg Tablet 1 TAB PO (00:28)
[2020-03-21 06:10] LABS: Basophils % 0.1 %; Eosinophils % 0.1 %; Hematocrit 39.3 % (42.0-52.0); Hemoglobin 11.7 g/dL (11.7-16.6); Lymphocytes # 0.8 10^3/uL (0.8-4.8); Lymphocytes % 6.8 %; Mean Corpuscular HGB Conc 29.8 g/dL (30.0-36.0); Mean Corpuscular Hemoglobin 22.9 pg (28.0-34.0); Mean Corpuscular Volume 76.8 fL (80-94); Mean Platelet Volume 10.4 fL (7.4-10.4); Monocytes # 0.5 10^3/uL (0.2-0.9); Monocytes % 4.4 %; Neutrophils % 87.9 %; Nucleated Red Blood Cells # 0.1 /100WBC; Nucleated Red Blood Cells % 0.5 %; Platelet Count 376 10^3/cmm (130-400); Red Blood Count 5.12 10^6/uL (4.1-5.3); Red Cell Distribution Width 19.4 % (12.1-15.1)
[2020-03-21 06:22] LABS: D Dimer 3.33 ug/mIFEU (0-0.59)
[2020-03-21 06:51] LABS: Alanine Aminotransferase 55 U/L (0-41); Albumin Level 3.1 g/dL (3.5-5.2); Alkaline Phosphatase 70 IU/L (40-130); Aspartate Amino Transferase 41 U/L (0-40); Blood Urea Nitrogen 41 mg/dL (8-23); Calcium 9.2 mg/dL (8.5-10.5); Carbon Dioxide 21 mmol/L (22-29); Chloride 102 mmol/L (98-107); Globulin 3.3 g/dL (1.3-4.6); Glucose 87 mg/dL (65-115); Osmolality Calculated 293 mOsm/kg (285-295); Sodium 137 mmol/L (136-145); Total Bilirubin 0.4 mg/dL (0.15-1.2); Total Protein 6.4 g/dL (6.6-8.7)
[2020-03-21] MEDS: cloNIDine 0.1 mg Tablet PO (07:05)
[2020-03-21 07:12] LABS: C Reactive Protein 29.4 mg/L (0.0-4.9)
[2020-03-21 08:05] LABS: Partial Thromboplastin Time 142.6 SECONDS (23.9-36.7)
[2020-03-21] MEDS: amlodipine 10 mg Tablet PO (08:31)
[2020-03-21] MEDS: pantoprazole DR 40 mg Tablet PO ×2 (08:31→17:11)
[2020-03-21] MEDS: dexamethasone 4 mg/mL INJ 6 MG IVP (08:31)
[2020-03-21] MEDS: guaiFENesin 600 mg Tablet 1200 MG PO ×2 (08:31→17:11)
[2020-03-21] MEDS: ALPRAZolam 0.25 mg Tablet 0.5 MG PO ×2 (08:31→17:14)
[2020-03-21] MEDS: duloxetine 30 mg Capsule PO (08:32)
[2020-03-21] MEDS: carvedilol 6.25 mg Tablet PO (08:32)
[2020-03-21] MEDS: albuterol 8 gm MDI 2 PUFF INHALATION (09:06)
[2020-03-21 14:58] LABS: Hematocrit 36.6 % (42.0-52.0)
[2020-03-21] MEDS: benzonatate 100 mg Capsule PO ×2 (15:03→21:12)
[2020-03-21] MEDS: levoFLOXacin 750 mg Tablet PO (15:03)
[2020-03-21 15:20] LABS: Thyroid Stimulating Hormone 0.69 uIU/mL (0.27-4.20)
[2020-03-21 15:43] LABS: Iron 30 ug/dL (59-158); Percent Saturation 13.4 % (20-50); Total Iron Binding Capacity 223 mcg/dl; Unsaturated Iron Binding 193 ug/dL (112-347)
[2020-03-21 15:50] LABS: Partial Thromboplastin Time 47.4 SECONDS (23.9-36.7)
[2020-03-21 16:11] LABS: Procalcitonin 0.16 ng/mL (0-0.5)
[2020-03-21] MEDS: heparin 5,000 unit/mL INJ 1 mL IV (16:29)
[2020-03-21] MEDS: ferrous gluconate 324 mg Tablet PO (17:14)
[2020-03-21] MEDS: carvedilol 12.5 mg Tablet PO (17:15)
--- NOTE | 2020-03-21 18:53 | P.PN_ITS ---
Subjective Subjective: Interval history: Hospital chart, vitals, labs noted. On examination patient comfortable in bed. Complaining of cough. Continues to remain on heated high flow 65 L 100% to maintain saturation of 90%. Urine output noted. Continues to have hematuria. Case discussed with Dr. Tolbert. He states that illness patient is having good urine output will not go ahead for CBI. Patient denies any nausea, vomiting, headache. Patient did have an episode of mild agitation when he wanted to reevaluate the day today. Vitals/I&O/Wt Last Vital Signs Temp 98.9 F 03/21/20 16:00 Pulse 76 03/21/20 18:00 Resp 22 H 03/21/20 18:00 BP 116/71 03/21/20 18:00 Pulse Ox 95 03/21/20 18:00 03/21/20 03/21/20 03/21/20 06:59 14:59 22:59 Intake Total 450.56 / 1255.56 736.533 / 736.533 360 / 1096.533 Output Total 600 / 1300 850 / 850 625 / 1475 Balance -149.44 / -44.44 -113.467 / -113.467 -265 / -378.467 Weight last 48 hrs Weight 68.974 kg Weight 70.534 kg Data : 03/21/20 13:55 03/21/20 05:30 A&P Assessment and plan (1) ARDS (adult respiratory distress syndrome): Status: Acute (2) Severe acute respiratory syndrome coronavirus 2 (SARS-CoV-2) detected: \ Status: Acute (3) COPD (chronic obstructive pulmonary disease): Status: Acute (4) Hypertension: Status: Acute (5) Retained ureteral stent: Status: Acute (6) Hematuria: Status: Acute (7) Chronic kidney disease (CKD): Status: Acute (8) Abdominal aortic aneurysm (AAA): Status: Acute (9) 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 Patient is currently on heated high flow we will continue to monitor and wean if possible. If patient worsens can put him on BiPAP. Discussed with both patient and patient's family if required they are okay with intubation. Today is the last dose of remdesivir. Continue with IV dexamethasone. Advair, Spiriva. Vitamin C, zinc. Tessalon Perles. Give IV Lasix 20 mg 1 dose. Strict input output charting and daily weights. Continue with heparin drip for now. Continue to monitor inflammatory markers daily including LDH, fibrinogen, ferritin, D-dimer, CPK, CRP, proBNP. Pulmonary toilet with incentive spirometry and flutter valve. Proning as possible. MRSA swab, bacterial antigen, urine Legionella negative. Continue with levofloxacin 500 mg every 48 hour. Will finish a 7-day course. Hematuria: Secondary to ureteral stents with history of recurrent ureteral stent obstruction. Ureteral stents: Reports follows with Dr. Tolbert. They are overdue for exchange. Case discussed with Dr. Tolbert. For now continue to monitor. If urine output decreases will do bladder scan and if required can do CBI at that time. Hypertension: Goal blood pressure less than 140/90 mmHg. Continue with amlodipine 10 mg daily, Coreg but will increase dose to 12.5 mg twice daily. Clonidine 0.1 every 12 as needed. Last echocardiogram from December 2019 shows an EF of 75% with grade 1 diastolic dysfunction with moderate LVH, mild LA and RA dilatation. History of aortic valve replacement: Aspirin for now has been on hold due to recent reports of hematuria. Underlying COPD: Follows with pulmonology. Here we will continue tiotropium. Albuterol. Steroid and antibiotic as above for pulmonary infection. 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 He has been tapered down so far to 12.5 mg prednisone daily. For now on hold with Decadron as above. History of TIA Renal artery stenosis Chronic kidney disease: Creatinine appears close to baseline. Monitor. HTN HLD Carotid artery disease Aortic regurgitation AAA Full code. Protonix for daily prophylaxis. Heparin drip for DVT prophylaxis Clear liquid diet for now. We will try to see if he can advance depending on his respiratory status. Out of bed to chair if possible. Attestations Medical Necessity Statement*: Patient requires further hospitalization for management of ARDS because of severe COVID-19 pneumonia, ongoing hematuria in view of in situ ureteral stents Time Spent in Patient Care: Greater than 35 minutes (>than 50% of time spe nt in counselling and/or direct pt care on unit) . 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
[2020-03-21] MEDS: FUROsemide 10 mg/mL SDV 2mL 20 MG IVP (19:06)
--- NOTE | 2020-03-21 20:13 | PC.NURSE ---
Placed pt in semi fowlers position, on his right side, oxygen sat increased on 97% on heated high flow. Pt states this position makes his more comfortably
[2020-03-21] MEDS: trazodone 150 mg Tablet PO (21:13)
[2020-03-21] MEDS: polyethylene glycol 3350 Pkt 17 gm PO (21:13)
[2020-03-21 23:54] LABS: Partial Thromboplastin Time 65.4 SECONDS (23.9-36.7)
[2020-03-22] VITALS (34 sets, daily range): BP systolic 92–151; BP diastolic 59–101; PULSE 68–102; RESP 15–28; TEMP 36.7–36.8; O2SAT 82–100
[2020-03-22 03:43] LABS: Fibrinogen 525 mg/dL (174-498)
[2020-03-22 03:46] LABS: D Dimer 3.11 ug/mIFEU (0-0.59)
[2020-03-22 03:58] LABS: Alanine Aminotransferase 42 U/L (0-41); Albumin Level 2.9 g/dL (3.5-5.2); Alkaline Phosphatase 69 IU/L (40-130); Aspartate Amino Transferase 26 U/L (0-40); Basophils % 0.2 %; Blood Urea Nitrogen 39 mg/dL (8-23); Calcium 9.2 mg/dL (8.5-10.5); Carbon Dioxide 19 mmol/L (22-29); Chloride 103 mmol/L (98-107); Globulin 3.8 g/dL (1.3-4.6); Glucose 101 mg/dL (65-115); Hematocrit 41.3 % (42.0-52.0); Hemoglobin 12.4 g/dL (11.7-16.6); Lymphocytes # 0.5 10^3/uL (0.8-4.8); Lymphocytes % 5.3 %; Mean Corpuscular Hemoglobin 23.1 pg (28.0-34.0); Mean Corpuscular Volume 77.1 fL (80-94); Mean Platelet Volume 10.6 fL (7.4-10.4); Monocytes # 0.4 10^3/uL (0.2-0.9); Monocytes % 4.2 %; Neutrophils # 8.02 10^3/uL (1.8-7.7); Neutrophils % 89.1 %; Nucleated Red Blood Cells % 0.2 %; Osmolality Calculated 296 mOsm/kg (285-295); Platelet Count 371 10^3/cmm (130-400); Red Blood Count 5.36 10^6/uL (4.1-5.3); Red Cell Distribution Width 19.7 % (12.1-15.1); Sodium 138 mmol/L (136-145); Total Bilirubin 0.4 mg/dL (0.15-1.2); Total Protein 6.7 g/dL (6.6-8.7)
[2020-03-22 04:09] LABS: C Reactive Protein 27.1 mg/L (0.0-4.9); Chol HDL Ratio 2.23 mg/dL (1.0-5.00); Cholesterol 134 mg/dL (0-200); Creatine Phosphokinase 29 U/L (39-308); Ferritin 164 ng/mL (30-400); HDL Cholesterol 60 mg/dL (60-100); LDL Cholesterol Calculated 54 mg/dL (50-129); Lactate Dehydrogenase 431 U/L (135-225); NT Pro B Type Natriuretic Pept 1137 pg/mL (0-450); Triglycerides 102 mg/dL (0-150); VLDL Cholestrol Calculation 20 mg/dL (0-30)
[2020-03-22 04:09] LABS: Alveolar-Arterial Oxygen Gradi 53.2 mmHg (5-10); Arterial Blood Gas Hematocrit 35.4 % (42-52); Base Excess ABG -1.4 mmol/L (-2.0-2.0); Blood Gas Allen Test Pos; Blood Gas Sample Site Radial, right; Blood Gas Sample Type Arterial; Carboxyhemoglobin 0.9 %THgb (0.4-20.1); HCO3 ABG 20.8 mmol/L (22-26); HGB O2 Sat 87.6 % (95-100); Ionized Calcium Level - ABG 1.2 mmol/L (1.1-1.4); Methemoglobin 0.9 % (0.4-1.5); Oxygen Saturation ABG 89.3; PO2 ABG 52.4 mmHg (80.0-100.0); Potassium Level - ABG 3.9 mmol/L (3.5-5.0); Total Hemoglobin 11.5 g/dL (14-18)
[2020-03-22 05:29] LABS: Partial Thromboplastin Time 57.8 SECONDS (23.9-36.7)
--- NOTE | 2020-03-22 06:00 | XR_ITS ---
WS: [id number] XR chest 1V portable [id number] REASON FOR EXAM: covid FINDINGS: Chest is unchanged compared to previous examination of 03/17/2020. Diffuse peripheral infiltrative malorie nges in the right lung and interstitial infiltrative changes and some consolidation in the left lower lung. No new findings. XR/XR chest 1V portable [id number] IMPRESSION: Stable abnormal chest.
[2020-03-22] MEDS: pantoprazole DR 40 mg Tablet PO ×2 (08:11→17:20)
[2020-03-22] MEDS: benzonatate 100 mg Capsule PO ×3 (08:11→20:55)
[2020-03-22] MEDS: amlodipine 10 mg Tablet PO (08:11)
[2020-03-22] MEDS: ferrous gluconate 324 mg Tablet PO ×2 (08:11→17:20)
[2020-03-22] MEDS: dexamethasone 4 mg/mL INJ 6 MG IVP (08:11)
[2020-03-22] MEDS: guaiFENesin 600 mg Tablet 1200 MG PO ×2 (08:12→17:19)
[2020-03-22] MEDS: zinc gluconate 50 mg Tablet PO (08:24)
[2020-03-22] MEDS: ascorbic acid 500 mg Tablet PO (08:24)
[2020-03-22] MEDS: carvedilol 12.5 mg Tablet PO (08:24)
--- NOTE | 2020-03-22 09:02 | PC.SOCIAL ---
IMM Update Pg. 2 of IMM discussed with patient's spouse over the phone. Verbalized understanding.
[2020-03-22] MEDS: albuterol 8 gm MDI 2 PUFF INHALATION ×2 (09:17→20:11)
[2020-03-22] MEDS: duloxetine 30 mg Capsule PO (09:35)
[2020-03-22] MEDS: HYDROcodone-acetaminophen 5-325 mg Tablet 1 TAB PO ×2 (10:56→20:04)
--- NOTE | 2020-03-22 12:34 | PM.PN ---
Subjective Subjective: Interval history: No acute events overnight. On examination patient states she is feeling extremely weak and complaining of pain in his back and neck. Denies any nausea, vomiting. States his appetite is not good. He is still requiring heated high flow to maintain his saturations more than 90%. Patient continues to have hematuria though his hemoglobin has remained stable. He is requesting for a Bingham catheter because he is feeling tired. Vitals/I&O/Wt Last Vital Signs Temp 98.0 F 03/22/20 10:00 Pulse 76 03/22/20 10:27 Resp 16 03/22/20 10:27 BP 105/79 03/22/20 10:00 Pulse Ox 93 03/22/20 10:27 03/21/20 03/22/20 03/22/20 22:59 06:59 14:59 Intake Total 737.907 / 1474.440 Output Total 1150 / 2000 300 / 2300 100 / 100 Balance -412.093 / -525.560 -300 / -825.560 -100 / -100 Weight last 48 hrs Weight 67.84 kg Weight 68.974 kg Physical Exam Narrative: EXAM NARRATIVE: General: AOx3, in distress because of pain, looking tired and weak HEENT: PERRLA, pupils bilaterally equal and reactive Chest: Bronchial breath sounds all over the lung dowd, coarse crackles left more than right, equal air entry bilaterally CVS: S1-S2 regular, early diastolic murmur at the aortic area, soft pansystolic murmur at the apex, no tachycardia, no gallops, no rubs Abdomen: Soft, nontender, no organomegaly, bowel sounds present Neuro: No focal deficits, no facial deformity, AO x3, power 4 /5 in all limbs Data : 03/22/20 02:10 03/22/20 02:10 Micro: Microbiology 03/21/20 13:55 MRSA Culture - Final Nose A&P Assessment and plan (1) ARDS (adult respiratory distress syndrome): Status: Acute (2) Severe acute respiratory syndrome coronavirus 2 (SARS-CoV-2) detected: \ Status: Acute (3) COPD (chronic obstructive pulmonary disease): Status: Acute (4) Hypertension: Status: Acute (5) Retained ureteral stent: Status: Acute (6) Hematuria: Status: Acute (7) Chronic kidney disease (CKD): Status: Acute (8) Abdominal aortic aneurysm (AAA): Status: Acute (9) 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 Patient is currently on heated high flow we will continue to monitor and wean if possible. If patient worsens can put him on BiPAP. Finished his course of antivirals with remdesivir. Continue with IV dexamethasone. Advair, Spiriva. Vitamin C, zinc. Tessalon Perles. Give IV Lasix 20 mg 1 dose. Can put Bingham catheter. Will monitor urine output. If decreasing can flush to dislodge any blood clots. If continues to have that most likely patient will require CBI. Strict input output charting and daily weights. Continue with heparin drip for now. Continue to monitor inflammatory markers daily including LDH, fibrinogen, ferritin, D-dimer, CPK, CRP, proBNP. Pulmonary toilet with incentive spirometry and flutter valve, chest vest. Proning as possible. MRSA swab, bacterial antigen, urine Legionella negative. Finished 7-day course of levofloxacin. Hematuria: Secondary to ureteral stents with history of recurrent ureteral stent obstruction. Hemoglobin stable. Ureteral stents: Reports follows with Dr. Tolbert. They are overdue for exchange. Case discussed with Dr. Tolbert. For now continue to monitor. Patient catheterized today. Will monitor urine output. If urine output decreases will do bladder scan and if required can do CBI at that time. Hypertension: Goal blood pressure less than 140/90 mmHg. Continue with amlodipine 10 mg daily, will decrease the dose of Coreg back to 6.25 mg twice daily. Clonidine 0.1 every 12 as needed. Last echocardiogram from December 2019 shows an EF of 75% with grade 1 diastolic dysfunction with moderate LVH, mild LA and RA dilatation. History of aortic valve replacement: Aspirin for now has been on hold due to recent reports of hematuria. Underlying COPD: Follows with pulmonology. Here we will continue tiotropium. Albuterol. Steroid and antibiotic as above for pulmonary infection. 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 He has been tapered down so far to 12.5 mg prednisone daily. For now on hold with Decadron as above. History of TIA Renal artery stenosis Chronic kidney disease: Creatinine appears close to baseline. Monitor. HTN HLD Carotid artery disease Aortic regurgitation AAA Protonix for daily prophylaxis. Heparin drip for DVT prophylaxis Clear liquid diet for now. We will try to see if he can advance depending on his respiratory status. Out of bed to chair if possible. Severely guarded prognosis. Goals of care: Patient states today that he has been thinking regarding the conversation of goals of care we had yesterday and going forward if needed he would not want to be intubated or have any heroic measures to keep him alive. CODE STATUS has been changed to allow natural . The above has been conveyed to patient's Ms. Lyon and his [id number] over the phone. All the questions were answered. Attestations Medical Necessity Statement*: Patient requires further hospitalization for management of ARDS secondary to severe Covid pneumonia, at present patient is high flow dependent. Time Spent in Patient Care: Greater than 35 minutes (>than 50% of time spent in counselling and/or direct pt care on unit). 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
[2020-03-22 12:50] LABS: Partial Thromboplastin Time 56.2 SECONDS (23.9-36.7)
[2020-03-22] MEDS: FUROsemide 10 mg/mL SDV 2mL 20 MG IVP (15:37)
[2020-03-22] MEDS: carvedilol 6.25 mg Tablet PO (17:20)
[2020-03-22] MEDS: TRAMadol 50 mg Tablet PO (17:20)
[2020-03-22 18:29] LABS: Partial Thromboplastin Time 59.8 SECONDS (23.9-36.7)
--- NOTE | 2020-03-22 18:51 | PC.NURSE ---
This nurse assumed care of this pt at appx 1200. Heparin gtt infusing at 13 mL/hr at time of nursing change. No changed indicated for remainder of shift per ptt lab results/heparin protocol.
[2020-03-22 19:16] LABS: Estmated Average Glucose 128; Hemoglobin A1C 6.1 % (4.0-6.0)
--- NOTE | 2020-03-22 19:31 | PC.NURSE ---
report from MARIO Schulz.
[2020-03-22] MEDS: polyethylene glycol 3350 Pkt 17 gm PO (20:55)
[2020-03-22] MEDS: trazodone 150 mg Tablet PO (20:55)
--- NOTE | 2020-03-22 22:50 | PC.NURSE ---
Report to Dr. Shanks. Noted 6 beat run of VT, BP 110/62, ASX. pt stated I just rolled over . No CP/increased SOA/N/V. Per provider continue to monitor.
[2020-03-23] VITALS (32 sets, daily range): BP systolic 89–136; BP diastolic 63–95; PULSE 69–105; RESP 13–35; TEMP 36.7–36.9; O2SAT 88–98; BMI 21.4
[2020-03-23] MEDS: ALPRAZolam 0.25 mg Tablet 0.5 MG PO ×2 (00:19→17:35)
[2020-03-23 04:09] LABS: Basophils % 0.1 %; Hematocrit 36.5 % (42.0-52.0); Lymphocytes # 0.6 10^3/uL (0.8-4.8); Lymphocytes % 6.7 %; Mean Corpuscular HGB Conc 30.1 g/dL (30.0-36.0); Mean Corpuscular Hemoglobin 22.9 pg (28.0-34.0); Mean Platelet Volume 10.2 fL (7.4-10.4); Monocytes # 0.4 10^3/uL (0.2-0.9); Monocytes % 4.9 %; Neutrophils # 7.76 10^3/uL (1.8-7.7); Neutrophils % 86.5 %; Nucleated Red Blood Cells % 0 %; Platelet Count 328 10^3/cmm (130-400); Red Cell Distribution Width 19.4 % (12.1-15.1)
[2020-03-23 04:15] LABS: ABG PH Result 7.46 (7.35-7.45); Alveolar-Arterial Oxygen Gradi 39.5 mmHg (5-10); Arterial Blood Gas Hematocrit 34.8 % (42-52); Base Excess ABG -1.2 mmol/L (-2.0-2.0); Blood Gas Allen Test Pos; Blood Gas Sample Site Radial, right; Blood Gas Sample Type Arterial; Carboxyhemoglobin 1.1 %THgb (0.4-20.1); HCO3 ABG 21.9 mmol/L (22-26); HGB O2 Sat 85.1 % (95-100); Ionized Calcium Level - ABG 1.3 mmol/L (1.1-1.4); Methemoglobin 0.7 % (0.4-1.5); Oxygen Saturation ABG 86.7; PO2 ABG 49.3 mmHg (80.0-100.0); Potassium Level - ABG 3.7 mmol/L (3.5-5.0); Total Hemoglobin 11.4 g/dL (14-18)
[2020-03-23 04:25] LABS: Alanine Aminotransferase 32 U/L (0-41); Albumin Level 2.7 g/dL (3.5-5.2); Alkaline Phosphatase 58 IU/L (40-130); Anion Gap 15.8 (5-19); Aspartate Amino Transferase 17 U/L (0-40); Blood Urea Nitrogen 36 mg/dL (8-23); Calcium 8.8 mg/dL (8.5-10.5); Carbon Dioxide 21 mmol/L (22-29); Chloride 105 mmol/L (98-107); Globulin 3.2 g/dL (1.3-4.6); Glucose 115 mg/dL (65-115); Osmolality Calculated 295 mOsm/kg (285-295); Potassium 3.8 mmol/L (3.5-5.1); Sodium 138 mmol/L (136-145); Total Bilirubin 0.4 mg/dL (0.15-1.2); Total Protein 5.9 g/dL (6.6-8.7)
[2020-03-23 04:36] LABS: Fibrinogen 453 mg/dL (174-498)
[2020-03-23 04:37] LABS: C Reactive Protein 24.9 mg/L (0.0-4.9); Creatine Phosphokinase 25 U/L (39-308); Ferritin 149 ng/mL (30-400); Lactate Dehydrogenase 338 U/L (135-225); NT Pro B Type Natriuretic Pept 1250 pg/mL (0-450)
--- NOTE | 2020-03-23 06:46 | PC.NURSE ---
Report to MARIO Torres
[2020-03-23] MEDS: ferrous gluconate 324 mg Tablet PO ×2 (07:23→17:35)
[2020-03-23] MEDS: albuterol 8 gm MDI 2 PUFF INHALATION ×2 (08:16→20:52)
[2020-03-23] MEDS: duloxetine 30 mg Capsule PO (08:52)
[2020-03-23] MEDS: ascorbic acid 500 mg Tablet PO (08:53)
[2020-03-23] MEDS: pantoprazole DR 40 mg Tablet PO ×2 (08:53→17:35)
[2020-03-23] MEDS: guaiFENesin 600 mg Tablet 1200 MG PO ×2 (08:53→17:35)
[2020-03-23] MEDS: HYDROcodone-acetaminophen 5-325 mg Tablet 1 TAB PO ×2 (08:53→16:32)
[2020-03-23] MEDS: benzonatate 100 mg Capsule PO ×3 (08:53→21:22)
[2020-03-23] MEDS: amlodipine 10 mg Tablet PO (08:53)
[2020-03-23] MEDS: zinc gluconate 50 mg Tablet PO (08:53)
[2020-03-23] MEDS: dexamethasone 4 mg/mL INJ 6 MG IVP (08:54)
[2020-03-23] MEDS: carvedilol 6.25 mg Tablet PO ×2 (08:56→17:35)
[2020-03-23] MEDS: TRAMadol 50 mg Tablet PO (11:11)
[2020-03-23 13:55] LABS: D Dimer 2.12 ug/mIFEU (0-0.59)
--- NOTE | 2020-03-23 16:23 | P.PN_ITS ---
Subjective Subjective: Interval history: No acute events overnight. Today morning examination patient is a little more alert and jovial today. He states his energy levels are better today. Denies any nausea, vomiting, headache. On examination he is on heated high flow saturating 92%. He is remained hemodynamically stable. Documented urine output in last 24 hours after [place] catheter 3400. Hemoglobin has remained stable. Vitals/I&O/Wt Last Vital Signs Temp 98.0 F 03/23/20 02:00 Pulse 84 03/23/20 15:25 Resp 16 03/23/20 15:25 BP 111/70 03/23/20 14:00 Pulse Ox 89 L 03/23/20 15:25 03/23/20 03/23/20 03/23/20 06:59 14:59 22:59 Intake Total 300 / 1300 800 / 800 Output Total 1000 / 3500 Balance -700 / -2200 800 / 800 Weight last 48 hrs Weight 67.84 kg Weight 67.84 kg Weight 67.84 kg Physical Exam Narrative: EXAM NARRATIVE: General: AOx3, in no acute distress HEENT: PERRLA, pupils bilaterally equal and reactive Chest: Bronchial breath sounds all over the lung dowd, coarse crackles left more than right, equal air entry bilaterally CVS: S1-S2 regular, early diastolic murmur at the aortic area, soft pansystolic murmur at the apex, no tachycardia, no gallops, no rubs Abdomen: Soft, nontender, no organomegaly, bowel sounds present Neuro: No focal deficits, no facial deformity, AO x3, power 4 /5 in all limbs Urinary Catheter Management^: Coude: Cath Placed During This Visit: yes Reason for Continuing Indwelling Catheter: Accurate Measurement of Urinary Output in Critically Ill Patients Urinary Catheter Date of Insertion: 03/22/20 Urinary Catheter Time of Insertion: 15:00 Data : 03/23/20 03:56 03/23/20 03:56 A&P Assessment and plan (1) ARDS (adult respiratory distress syndrome): Status: Acute (2) Severe acute respiratory syndrome coronavirus 2 (SARS-CoV-2) detected: \ Status: Acute (3) COPD (chronic obstructive pulmonary disease): Status: Acute (4) Hypertension: Status: Acute (5) Retained ureteral stent: Status: Acute (6) Hematuria: Status: Acute (7) Chronic kidney disease (CKD): Status: Acute (8) Abdominal aortic aneurysm (AAA): Status: Acute (9) 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 Patient is currently on heated high flow we will continue to monitor and wean if possible. If patient worsens can put him on BiPAP. Finished his course of antivirals with remdesivir. Continue with IV dexamethasone. Advair, Spiriva. Vitamin C, zinc. Tessalon Perles. Hours and he is net negative. We will hold off on giving any Lasix today. We will continue to monitor for fluid overload. Continue with Bingham catheter. We will continue to monitor urine output and for clots. If he has any blood clots will switch him over to CBI. As patient's hemoglobin has remained stable last 3 days on heparin drip we will stop the heparin drip and transition over to full dose Lovenox 1 mg/kg body weight 3 hours after stopping heparin drip. Continue to monitor inflammatory markers daily including LDH, fibrinogen, ferritin, D-dimer, CPK, CRP, proBNP. Pulmonary toilet with incentive spirometry and flutter valve, chest vest. Proning as possible. MRSA swab, bacterial antigen, urine Legionella negative. Finished 7-day course of levofloxacin. Hematuria: Secondary to ureteral stents with history of recurrent ureteral stent obstruction. Hemoglobin stable. Ureteral stents: Reports follows with Dr. Tolbert. They are overdue for exchange. Case discussed with Dr. Tolbert. For now continue to monitor. Patient catheterized today. Will monitor urine output. If urine output decreases will do bladder scan and if required can do CBI at that time. Hypertension: Goal blood pressure less than 140/90 mmHg. Continue with amlodipine 10 mg daily, Coreg 6.25 mg twice daily. Clonidine 0.1 every 12 as needed. Last echocardiogram from December 2019 shows an EF of 75% with grade 1 diastolic dysfunction with moderate LVH, mild LA and RA dilatation. History of aortic valve replacement: Aspirin for now has been on hold due to recent reports of hematuria. Underlying COPD: Follows with pulmonology. Here we will continue tiotropium. Albuterol. Steroid and antibiotic as above for pulmonary infection. 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 He has been tapered down so far to 12.5 mg prednisone daily. For now on hold with Decadron as above. History of TIA Renal artery stenosis Chronic kidney disease: Creatinine appears close to baseline. Monitor. HTN HLD Carotid artery disease Aortic regurgitation AAA Protonix for daily prophylaxis. Heparin drip for DVT prophylaxis Clear liquid diet for now. We will try to see if he can advance depending on his respiratory status. Out of bed to chair if possible. Severely guarded prognosis. Goals of care: Patient states today that he has been thinking regarding the conversation of goals of care we had yesterday and going forward if needed he would not want to be intubated or have any heroic measures to keep him alive. CODE STATUS has been changed to allow natural . Patient's care was discussed in detail with both patient's son and over the phone today. All the questions were answered. Attestations Medical Necessity Statement*: Further hospitalization for management of ARDS because of severe COVID-19 pneumonia, ongoing hematuria in setting bilateral ureteral stents. Time Spent in Patient Care: Greater than 35 minutes (>than 50% of time spent in counselling and/or direct pt care on unit) . 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
[2020-03-23] MEDS: enoxaparin 80 mg/0.8 mL Syringe 70 MG SUBCUT (16:35)
[2020-03-23] MEDS: lanolin oint 7 gm 1 APPLIC TOPICAL (17:34)
[2020-03-23 17:37] LABS: Partial Thromboplastin Time 41.3 SECONDS (23.9-36.7)
[2020-03-23] MEDS: polyethylene glycol 3350 Pkt 17 gm PO (21:22)
[2020-03-24] VITALS (36 sets, daily range): BP systolic 96–139; BP diastolic 63–89; PULSE 72–96; RESP 14–34; TEMP 36.6–37.1; O2SAT 88–99
[2020-03-24 04:16] LABS: Basophils % 0.2 %; Hematocrit 30.2 % (42.0-52.0); Lymphocytes # 0.4 10^3/uL (0.8-4.8); Lymphocytes % 6.4 %; Mean Corpuscular HGB Conc 29.8 g/dL (30.0-36.0); Mean Corpuscular Hemoglobin 23.1 pg (28.0-34.0); Mean Corpuscular Volume 77.4 fL (80-94); Mean Platelet Volume 10.1 fL (7.4-10.4); Monocytes # 0.2 10^3/uL (0.2-0.9); Neutrophils # 5.08 10^3/uL (1.8-7.7); Neutrophils % 87.7 %; Nucleated Red Blood Cells % 0.3 %; Platelet Count 164 10^3/cmm (130-400); Red Cell Distribution Width 19.5 % (12.1-15.1); White Blood Count 5.8 10^3/uL (4.0-10.0)
[2020-03-24 04:54] LABS: Alanine Aminotransferase 27 U/L (0-41); Albumin Level 2.5 g/dL (3.5-5.2); Alkaline Phosphatase 60 IU/L (40-130); Anion Gap 14.9 (5-19); Aspartate Amino Transferase 17 U/L (0-40); Blood Urea Nitrogen 44 mg/dL (8-23); Calcium 8.5 mg/dL (8.5-10.5); Carbon Dioxide 20 mmol/L (22-29); Chloride 107 mmol/L (98-107); Globulin 3.2 g/dL (1.3-4.6); Glucose 115 mg/dL (65-115); Osmolality Calculated 298 mOsm/kg (285-295); Potassium 3.9 mmol/L (3.5-5.1); Sodium 138 mmol/L (136-145); Total Bilirubin 0.3 mg/dL (0.15-1.2); Total Protein 5.7 g/dL (6.6-8.7)
[2020-03-24 05:03] LABS: Creatine Phosphokinase 35 U/L (39-308); Ferritin 130 ng/mL (30-400); Lactate Dehydrogenase 389 U/L (135-225); NT Pro B Type Natriuretic Pept 1753 pg/mL (0-450)
[2020-03-24 05:16] LABS: D Dimer 1.75 ug/mIFEU (0-0.59)
[2020-03-24 05:43] LABS: ABG PCO2 30.6 mmHg (35-45); ABG PH Result 7.44 (7.35-7.45); PO2 ABG 59.3 mmHg (80.0-100.0)
[2020-03-24 05:44] LABS: Base Excess ABG -2.8 mmol/L (-2.0-2.0); Blood Gas Allen Test pos; HCO3 ABG 20.6 mmol/L (22-26); Oxygen Saturation ABG 91.6; Potassium Level - ABG 3.8 mmol/L (3.5-5.0)
[2020-03-24 05:45] LABS: Alveolar-Arterial Oxygen Gradi 390.6 mmHg (5-10); Arterial Blood Gas Hematocrit 34.6 % (42-52)
[2020-03-24 05:46] LABS: Carboxyhemoglobin 0.6 %THgb (0.4-20.1); HGB O2 Sat 90.8 % (95-100); Ionized Calcium Level - ABG 1.3 mmol/L (1.1-1.4); Methemoglobin 0.3 % (0.4-1.5); Total Hemoglobin 11.3 g/dL (14-18)
[2020-03-24] MEDS: enoxaparin 80 mg/0.8 mL Syringe 70 MG SUBCUT ×2 (05:50→17:04)
--- NOTE | 2020-03-24 06:00 | XR_ITS ---
WS: [id number] Portable AP supine chest, 03/24/2020 Clinical Data: covid Comparison: Portable chest, 03/22/2020. Findings: The right lung peripheral opacities have not changed. The heart size remains the same. The surgical repair of the fractures of the left fifth through ninth ribs remain intact. Midline sternoto my sutures are present. Monitor leads are on the chest wall. XR/XR chest 1V portable [id number] Impression: No change in peripheral right lung opacities.
[2020-03-24] MEDS: ALPRAZolam 0.25 mg Tablet 0.5 MG PO ×2 (06:12→18:32)
--- NOTE | 2020-03-24 06:23 | PC.NURSE ---
New Order V/O given by MD Dimitris director of marketing communications to cancel aPPT blood draw this AM based on med change.
[2020-03-24] MEDS: HYDROcodone-acetaminophen 5-325 mg Tablet 1 TAB PO ×2 (06:45→12:55)
[2020-03-24 06:50] LABS: Fibrinogen 485 mg/dL (174-498)
[2020-03-24] MEDS: guaiFENesin 600 mg Tablet 1200 MG PO ×2 (08:28→17:05)
[2020-03-24] MEDS: ferrous gluconate 324 mg Tablet PO ×2 (08:28→17:05)
[2020-03-24] MEDS: carvedilol 6.25 mg Tablet PO ×2 (08:28→17:05)
[2020-03-24] MEDS: benzonatate 100 mg Capsule PO ×3 (08:33→21:15)
[2020-03-24] MEDS: pantoprazole DR 40 mg Tablet PO ×2 (08:33→17:05)
[2020-03-24] MEDS: ascorbic acid 500 mg Tablet PO (08:33)
[2020-03-24] MEDS: zinc gluconate 50 mg Tablet PO (08:33)
[2020-03-24] MEDS: dexamethasone 4 mg/mL INJ 6 MG IVP (08:33)
[2020-03-24] MEDS: albuterol 8 gm MDI 2 PUFF INHALATION ×2 (08:34→20:34)
[2020-03-24] MEDS: duloxetine 30 mg Capsule PO (09:16)
--- NOTE | 2020-03-24 11:08 | PC.NURSE ---
Spoke to Dr. Tavera at 1030 . Reported hematuria. No new orders at this time.
[2020-03-24] MEDS: FUROsemide 10 mg/mL SDV 4mL 40 MG IVP (12:13)
[2020-03-24] MEDS: TRAMadol 50 mg Tablet PO ×2 (14:20→21:20)
--- NOTE | 2020-03-24 14:58 | PC.SOCIAL ---
IMM Updated Updated pt's son, Javid on Pg 2 IMM, via phone. No questions voiced. Signed, dated, & timed copy in chart.
[2020-03-24] MEDS: morphine 4 mg/mL SDV 1 mL 1 MG IVP (15:02)
--- NOTE | 2020-03-24 17:48 | P.PN_ITS ---
Subjective Subjective: Interval history: This morning patient was examined, he is actually sitting up into a chair, states that he is feeling better, is still on high flow, remains afebrile, I had a long discussion with patient about his long-term prognosis, I advised that he likely will remain on high flow for some period of time, I will try to diurese him while he is here see if I can decrease oxygen requirements, but he will likely require placement LTAC facility, he tells me that him and his live together here in [place], and he would like to remain with her if he could, Bingham catheter was placed overnight, has had some bloody output Vitals/I&O/Wt Last Vital Signs Temp 98.2 F 03/24/20 14:37 Pulse 84 03/24/20 16:00 Resp 24 H 03/24/20 16:00 BP 127/73 03/24/20 16:00 Pulse Ox 97 03/24/20 16:00 03/24/20 03/24/20 03/24/20 06:59 14:59 22:59 Intake Total 100 / 1550 300 / 300 600 / 900 Output Total 450 / 900 800 / 800 350 / 1150 Balance -350 / 650 -500 / -500 250 / -250 Weight last 48 hrs Weight 67.7 kg Weight 67.84 kg Weight 67.84 kg Physical Exam Const: COMMON NORMALS: no acute distress and patient oriented x3 HENMT: COMMON NORMALS: normocephalic HEAD & SCALP: normocephalic Neck/C-Spine: COMMON NORMALS: no JVD Resp: COMMON NORMALS: normal respiratory effort, No retractions and No use of accessory muscles AUSCULTATION: crackles Cardio: COMMON NORMALS: no JVD, regular rate, regular rhythm, S1 normal heart sound present and S2 normal heart sound present RATE: regular rate RHYTHM: regular rhythm HEART SOUNDS: S1 normal heart sound present and S2 normal heart sound present GI: COMMON NORMALS: Normal to inspection, nondistended, normoactive bowel sounds present, Soft to palpation, non-tender, No hepatosplenomegaly present, no masses and no bruits PALPATION: Yes Soft to palpation and Yes No hepatosplenomegaly present Extremity: COMMON NORMALS: capillary refill normal, no clubbing, cyanosis or edema, no calf tenderness and no pedal edema Neuro: COMMON NORMALS: patient oriented x3 Psych: COMMON NORMALS: mental status grossly normal Urinary Catheter Management^: Coude: Cath Placed During This Visit: yes Reason for Continuing Indwelling Catheter: Accurate Measurement of Urinary Output in Critically Ill Patients Urinary Catheter Date of Insertion: 03/22/20 Urinary Catheter Time of Insertion: 15:00 Data : 03/24/20 03:45 03/24/20 03:45 A&P Assessment and plan (1) ARDS (adult respiratory distress syndrome): Status: Acute (2) Severe acute respiratory syndrome coronavirus 2 (SARS-CoV-2) detected: \ Status: Acute (3) COPD (chronic obstructive pulmonary disease): Status: Acute (4) Hypertension: Status: Acute (5) Retained ureteral stent: Status: Acute (6) Hematuria: Status: Acute (7) Chronic kidney disease (CKD): Status: Acute (8) Abdominal aortic aneurysm (AAA): Status: Acute (9) 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 Patient is currently on heated high flow we will continue to monitor and wean if possible. If patient worsens can put him on BiPAP. Finished his course of antivirals with remdesivir. Continue with IV dexamethasone. Advair, Spiriva. Vitamin C, zinc. Tessalon Perles. We will try 40 mg IV Lasix twice daily today Continue with Bingham catheter. We will continue to monitor urine output and for clots. If he has any blood clots will switch him over to CBI. Currently on full dose Lovenox, hemoglobin 9 Continue to monitor inflammatory markers daily including LDH, fibrinogen, ferritin, D-dimer, CPK, CRP, proBNP. Pulmonary toilet with incentive spirometry and flutter valve, chest vest. Proning as possible. MRSA swab, bacterial antigen, urine Legionella negative. Finished 7-day course of levofloxacin. Hematuria: Secondary to ureteral stents with history of recurrent ureteral stent obstruction. Hemoglobin stable at 9 Ureteral stents: Reports follows with Dr. Tolbert. They are overdue for exchan ge. Case discussed with Dr. Tolbert. For now continue to monitor. Patient catheterized yesterday. Will monitor urine output. If urine output decreases will do bladder scan and if required can do CBI at that time. Hypertension: Goal blood pressure less than 140/90 mmHg. Continue with amlodipine 10 mg daily, Coreg 6.25 mg twice daily. Clonidine 0.1 every 12 as needed. Last echocardiogram from December 2019 shows an EF of 75% with grade 1 diastolic dysfunction with moderate LVH, mild LA and RA dilatation. History of aortic valve replacement: Aspirin for now has been on hold due to recent reports of hematuria. Underlying COPD: Follows with pulmonology. Here we will continue tiotropium. A lbuterol. 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 He has been tapered down so far to 12.5 mg prednisone daily. For now on hold with Decadron as above. History of TIA Renal artery stenosis Chronic kidney disease: Creatinine appears close to baseline. Monitor. HTN HLD Carotid artery disease Aortic regurgitation AAA Protonix for daily prophylaxis. Lovenox for DVT prophylaxis Dysphagia diet, with aspiration precautions. We will try to see if he can advance depending on his respiratory status. Out of bed to chair if possible. Severely guarded prognosis. Goals of care: Patient states today that he has been thinking regarding the conversation of goals of care we had yesterday and going forward if needed he would not want to be intubated or have any heroic measures to keep him alive. CODE STATUS has been changed to allow natural . Patient's care was discussed in detail with both patient's son and over the phone today. All the questions were answered. We will work on placement LTAC Plan: Encourage ambulation, encourage better p.o. intake, will transition to dysphagia diet with aspiration precautions, give Lasix today, working on placement to LTAC, monitor hemoglobin, monitor urine output, monitor for hematuria Attestations Medical Necessity Statement*: Patient requires hospitalization for acute respiratory failure secondary to COVID-19, awaiting placement Coding Level of Care Code Acute Transplant Rn for [facility] Diagnoses ARDS (adult respiratory distress syndrome) J80 Severe acute respiratory syndrome coronavirus 2 (SARS-CoV-2) detected U07.1 COPD (chronic obstructive pulmonary disease) J44.9 Hypertension I10 Retained ureteral stent Z96.0 Hematuria R31.9 Chronic kidney disease (CKD) N18.9 Abdominal aortic aneurysm (AAA) I71.4 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
[2020-03-24] MEDS: polyethylene glycol 3350 Pkt 17 gm PO (21:15)
[2020-03-25] VITALS (33 sets, daily range): BP systolic 93–146; BP diastolic 66–89; PULSE 68–107; RESP 13–26; TEMP 36.4–36.8; O2SAT 86–96; BMI 20.9
[2020-03-25] MEDS: HYDROcodone-acetaminophen 5-325 mg Tablet 1 TAB PO ×3 (00:17→15:11)
[2020-03-25] MEDS: FUROsemide 10 mg/mL SDV 4mL 40 MG IVP ×2 (00:18→08:57)
[2020-03-25 05:03] LABS: Basophils % 0.1 %; Hematocrit 38.6 % (42.0-52.0); Hemoglobin 11.5 g/dL (11.7-16.6); Lymphocytes # 0.5 10^3/uL (0.8-4.8); Lymphocytes % 5.3 %; Mean Corpuscular HGB Conc 29.8 g/dL (30.0-36.0); Mean Corpuscular Hemoglobin 22.9 pg (28.0-34.0); Mean Corpuscular Volume 76.7 fL (80-94); Mean Platelet Volume 10.2 fL (7.4-10.4); Monocytes # 0.5 10^3/uL (0.2-0.9); Monocytes % 4.7 %; Neutrophils # 8.82 10^3/uL (1.8-7.7); Neutrophils % 87.7 %; Nucleated Red Blood Cells % 0.2 %; Platelet Count 321 10^3/cmm (130-400); Red Blood Count 5.03 10^6/uL (4.1-5.3); Red Cell Distribution Width 20.2 % (12.1-15.1); White Blood Count 10.1 10^3/uL (4.0-10.0)
[2020-03-25 05:17] LABS: Fibrinogen 485 mg/dL (174-498)
[2020-03-25 05:21] LABS: D Dimer 1.72 ug/mIFEU (0-0.59)
[2020-03-25] MEDS: enoxaparin 80 mg/0.8 mL Syringe 70 MG SUBCUT ×2 (05:43→17:17)
[2020-03-25 05:52] LABS: Alanine Aminotransferase 27 U/L (0-41); Albumin Level 2.9 g/dL (3.5-5.2); Alkaline Phosphatase 60 IU/L (40-130); Anion Gap 17.6 (5-19); Aspartate Amino Transferase 16 U/L (0-40); Blood Urea Nitrogen 46 mg/dL (8-23); C Reactive Protein 12.7 mg/L (0.0-4.9); Calcium 8.7 mg/dL (8.5-10.5); Carbon Dioxide 21 mmol/L (22-29); Chloride 103 mmol/L (98-107); Globulin 3.1 g/dL (1.3-4.6); Glucose 103 mg/dL (65-115); Magnesium 2.1 mg/dL (1.7-2.3); Osmolality Calculated 298 mOsm/kg (285-295); Phosphorus 4.1 mg/dL (2.5-4.5); Potassium 3.6 mmol/L (3.5-5.1); Sodium 138 mmol/L (136-145); Total Bilirubin 0.4 mg/dL (0.15-1.2)
[2020-03-25 05:53] LABS: NT Pro B Type Natriuretic Pept 1032 pg/mL (0-450); Procalcitonin 0.13 ng/mL (0-0.5)
--- NOTE | 2020-03-25 07:00 | XR_ITS ---
WS: [id number] Portable AP upright chest, 03/25/2020 Clinical Data: sob Comparison: Portable chest, 03/24/2020 Findings: The right lung peripheral opacities remain the same. The heart is not enlarged. There are s urgical repairs of the left fifth through ninth ribs. Midline sternotomy sutures are present. The lef t lung is clear. The aortic arch and descending aorta show calcification and tortuosity. Monitor lead s are on the chest wall. The patient has probably had an anterior cervical disc fusion. XR/XR chest 1V portable [id number] Impression: No change from yesterday's chest x-ray.
[2020-03-25] MEDS: dexamethasone 4 mg/mL INJ 6 MG IVP (08:01)
[2020-03-25] MEDS: guaiFENesin 600 mg Tablet 1200 MG PO ×2 (08:01→17:17)
[2020-03-25] MEDS: ferrous gluconate 324 mg Tablet PO ×2 (08:01→17:17)
[2020-03-25] MEDS: ascorbic acid 500 mg Tablet PO (08:01)
[2020-03-25] MEDS: TRAMadol 50 mg Tablet PO ×2 (08:01→22:09)
[2020-03-25] MEDS: benzonatate 100 mg Capsule PO ×3 (08:01→21:13)
[2020-03-25] MEDS: duloxetine 30 mg Capsule PO (08:01)
[2020-03-25] MEDS: pantoprazole DR 40 mg Tablet PO ×2 (08:01→17:17)
[2020-03-25] MEDS: carvedilol 6.25 mg Tablet PO ×2 (08:01→17:17)
[2020-03-25] MEDS: amlodipine 10 mg Tablet PO (08:01)
[2020-03-25] MEDS: zinc gluconate 50 mg Tablet PO (08:01)
[2020-03-25] MEDS: albuterol 8 gm MDI 2 PUFF INHALATION (08:49)
--- NOTE | 2020-03-25 12:38 | P.PN_ITS ---
Subjective Subjective: Interval history: Patient was seen sitting in bed this morning, enjoying lunch, he states that he is feeling better, still remains on high flow, he really wants to return home to his , he is hoping his oxygen requirements will improve, still has some neck pain and back pain, overall doing better, Vitals/I&O/Wt Last Vital Signs Temp 98.0 F 03/25/20 08:00 Pulse 90 03/25/20 10:44 Resp 20 H 03/25/20 10:44 BP 141/89 03/25/20 10:00 Pulse Ox 94 03/25/20 10:44 03/24/20 03/25/20 03/25/20 22:59 06:59 14:59 Intake Total 800 / 1100 200 / 1300 240 / 240 Output Total 900 / 1700 1350 / 3050 Balance -100 / -600 -1150 / -1750 240 / 240 Weight last 48 hrs Weight 66.339 kg Weight 67.7 kg Physical Exam Const: COMMON NORMALS: no acute distress and patient oriented x3 HENMT: COMMON NORMALS: normocephalic HEAD & SCALP: normocephalic Neck/C-Spine: COMMON NORMALS: no JVD Resp: COMMON NORMALS: normal respiratory effort, No retractions and No use of accessory muscles AUSCULTATION: crackles and wheezes Cardio: COMMON NORMALS: no JVD, regular rate, regular rhythm, S1 normal heart sound present and S2 normal heart sound present RATE: regular rate RHYTHM: regular rhythm HEART SOUNDS: S1 normal heart sound present and S2 normal heart sound present GI: COMMON NORMALS: Normal to inspection, nondistended, normoactive bowel sounds present, Soft to palpation, non-tender, No hepatosplenomegaly present, no masses and no bruits PALPATION: Yes Soft to palpation and Yes No hepatosplenomegaly present Extremity: COMMON NORMALS: capillary refill normal, no clubbing, cyanosis or edema, no calf tenderness and no pedal edema Neuro: COMMON NORMALS: patient oriented x3 Psych: COMMON NORMALS: mental status grossly normal Urinary Catheter Management^: Coude: Cath Placed During This Visit: yes Reason for Continuing Indwelling Catheter: Accurate Measurement of Urinary Output in Critically Ill Patients Urinary Catheter Date of Insertion: 03/22/20 Urinary Catheter Time of Insertion: 15:00 Data : 03/25/20 03:55 03/25/20 03:55 A&P Assessment and plan (1) ARDS (adult respiratory distress syndrome): Status: Acute (2) Severe acute respiratory syndrome coronavirus 2 (SARS-CoV-2) detected: \ Status: Acute (3) COPD (chronic obstructive pulmonary disease): Status: Acute (4) Hypertension: Status: Acute (5) Retained ureteral stent: Status: Acute (6) Hematuria: Status: Acute (7) Chronic kidney disease (CKD): Status: Acute (8) Abdominal aortic aneurysm (AAA): Status: Acute (9) 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 Patient is currently on heated high flow we will continue to monitor and wean if possible. If patient worsens can put him on BiPAP. Finished his course of antivirals with remdesivir. Continue with IV dexamethasone. Advair, Spiriva. Vitamin C, zinc. Tessalon Perles. We will try Lasix 40 mg IV once daily today Continue with Bingham catheter. We will continue to monitor urine output and for clots. If he has any blood clots will switch him over to CBI. Currently on full dose Lovenox, hemoglobin 11.5 Continue to monitor inflammatory markers daily including LDH, fibrinogen, ferritin, D-dimer, CPK, CRP, proBNP. Pulmonary toilet with incentive spirometry and flutter valve, chest vest. Proning as possible. MRSA swab, bacterial antigen, urine Legionella negative. Finished 7-day course of levofloxacin. Hematuria: Secondary to ureteral stents with history of recurrent ureteral stent obstruction. Hemoglobin stable at 11.5 Ureteral stents: Reports follows with Dr. Tolbert. They are overdue for exchange. Case discussed with Dr. Tolbert. For now continue to monitor. Patient catheterized yesterday. Will monitor urine output. If urine output decreases will do bladder scan and if required can do CBI at that time. Hypertension: Goal blood pressure less than 140/90 mmHg. Continue with amlodipine 10 mg daily, Coreg 6.25 mg twice daily. Clonidine 0.1 every 12 as needed. Last echocardiogram from December 2019 shows an EF of 75% with grade 1 diastolic dysfunction with moderate LVH, mild LA and RA dilatation. History of aortic valve replacement: Aspirin for now has been on hold due to recent reports of hematuria. Underlying COPD: Follows with pulmonology. Here we will continue tiotropium. Albuterol. 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 He has been tapered down so far to 12.5 mg prednisone daily. For now on hold with Decadron as above. History of TIA Renal artery stenosis Chronic kidney disease: Creatinine appears close to baseline. Monitor. HTN HLD Carotid artery disease Aortic regurgitation AAA Protonix for daily prophylaxis. Lovenox for DVT prophylaxis Dysphagia diet, with aspiration precautions. We will try to see if he can advance depending on his respiratory status. Out of bed to chair if possible. Severely guarded prognosis. Goals of care: Patient states today that he has been thinking regarding the conversation of goals of care we had yesterday and going forward if needed he would not want to be intubated or have any heroic measures to keep him alive. CODE STATUS has been changed to allow natural . Patient's care was discussed in detail with both patient's son and over the phone today. All the questions were answered. We will work on placement LTAC Plan: Encourage ambulation, encourage better p.o. intake, doing well on dysphagia diet, give Lasix today, working on placement to LTAC, monitor hemoglobin, monitor urine output, monitor for hematuria, hopefully coming off high flow Attestations Medical Necessity Statement*: Patient requires hospitalization for acute respiratory failure secondary to COVID-19 Coding Level of Care Code Acute Center Medical Specialist for [facility] Fwd Diagnoses ARDS (adult respiratory distress syndrome) J80 Severe acute respiratory syndrome coronavirus 2 (SARS-CoV-2) detected U07.1 COPD (chronic obstructive pulmonary disease) J44.9 Hypertension I10 Retained ureteral stent Z96.0 Hematuria R31.9 Chronic kidney disease (CKD) N18.9 Abdominal aortic aneurysm (AAA) I71.4 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
[2020-03-25] MEDS: ALPRAZolam 0.25 mg Tablet 0.5 MG PO (15:10)
[2020-03-25] MEDS: morphine 4 mg/mL SDV 1 mL 1 MG IVP (15:54)
[2020-03-25] MEDS: polyethylene glycol 3350 Pkt 17 gm PO (21:13)
[2020-03-25] MEDS: trazodone 150 mg Tablet PO (21:54)
[2020-03-26] VITALS (32 sets, daily range): BP systolic 93–136; BP diastolic 69–94; PULSE 83–121; RESP 13–32; TEMP 36.6–36.9; O2SAT 85–94
[2020-03-26] MEDS: enoxaparin 80 mg/0.8 mL Syringe 70 MG SUBCUT ×2 (04:09→17:37)
--- NOTE | 2020-03-26 06:00 | XRR_ITS ---
PROCEDURE INFORMATION: Exam: XR Chest, 1 View Exam date and time: 03/26/2020 3:16 AM Age: 84 years old Clinical indication: Condition or disease; Other: Covid TECHNIQUE: Imaging protocol: XR of the chest Views: 1 view. COMPARISON: CR XR chest 1V portable [id number] 03/25/2020 4:53 AM FINDINGS: Lungs: Diminutive volume of the right lung with right hemidiaphragm elevation. Similar bilateral interstitial and partially alveolar consolidations with greatest involvement of the right lung. Pleural space: Unremarkable. No pleural effusion. No pneumothorax. Heart/Mediastinum: Unremarkable. No cardiomegaly. Vasculature: Calcified thoracic aorta. Bones/joints: Postoperative sternotomy. Plate fixation of the cervical spine with left cervical soft tissue surgical clips. Multiple rib hardware of plate and transcortical screws are positioned at left 5th through 9th ribs. XR/XR chest 1V portable [id number] IMPRESSION: Similar bilateral pulmonary infiltrates with greatest involvement on the right consistent with atypical viral pneumonia.
[2020-03-26 06:12] LABS: Basophils % 0.2 %; Hematocrit 38.7 % (42.0-52.0); Hemoglobin 11.7 g/dL (11.7-16.6); Lymphocytes # 0.6 10^3/uL (0.8-4.8); Lymphocytes % 4.7 %; Mean Corpuscular HGB Conc 30.2 g/dL (30.0-36.0); Mean Corpuscular Hemoglobin 23.4 pg (28.0-34.0); Mean Corpuscular Volume 77.6 fL (80-94); Mean Platelet Volume 10.8 fL (7.4-10.4); Monocytes # 0.8 10^3/uL (0.2-0.9); Monocytes % 5.9 %; Neutrophils # 11.05 10^3/uL (1.8-7.7); Neutrophils % 86.5 %; Nucleated Red Blood Cells % 0.2 %; Platelet Count 337 10^3/cmm (130-400); Red Blood Count 4.99 10^6/uL (4.1-5.3); Red Cell Distribution Width 20.7 % (12.1-15.1); White Blood Count 12.8 10^3/uL (4.0-10.0)
[2020-03-26 06:55] LABS: D Dimer 1.81 ug/mIFEU (0-0.59)
[2020-03-26 06:58] LABS: Fibrinogen 479 mg/dL (174-498)
[2020-03-26 07:05] LABS: NT Pro B Type Natriuretic Pept 2416 pg/mL (0-450); Procalcitonin 0.12 ng/mL (0-0.5)
[2020-03-26] MEDS: HYDROcodone-acetaminophen 5-325 mg Tablet 1 TAB PO ×3 (07:43→21:11)
[2020-03-26] MEDS: ferrous gluconate 324 mg Tablet PO ×2 (07:43→17:37)
[2020-03-26 08:43] LABS: Alanine Aminotransferase 30 U/L (0-41); Albumin Level 2.8 g/dL (3.5-5.2); Alkaline Phosphatase 66 IU/L (40-130); Aspartate Amino Transferase 26 U/L (0-40); Blood Urea Nitrogen 55 mg/dL (8-23); C Reactive Protein 9.9 mg/L (0.0-4.9); Carbon Dioxide 18 mmol/L (22-29); Chloride 102 mmol/L (98-107); Creatinine Clr Calc Pharmacy 31.6171; Globulin 3.5 g/dL (1.3-4.6); Glucose 92 mg/dL (65-115); Magnesium 2.4 mg/dL (1.7-2.3); Osmolality Calculated 301 mOsm/kg (285-295); Phosphorus 3.8 mg/dL (2.5-4.5); Sodium 138 mmol/L (136-145); Total Bilirubin 0.3 mg/dL (0.15-1.2); Total Protein 6.3 g/dL (6.6-8.7)
[2020-03-26] MEDS: albuterol 8 gm MDI 2 PUFF INHALATION ×2 (08:49→20:29)
[2020-03-26] MEDS: ascorbic acid 500 mg Tablet PO (10:03)
[2020-03-26] MEDS: benzonatate 100 mg Capsule PO ×3 (10:03→21:00)
[2020-03-26] MEDS: dexamethasone 4 mg/mL INJ 6 MG IVP (10:04)
[2020-03-26] MEDS: duloxetine 30 mg Capsule PO (10:04)
[2020-03-26] MEDS: carvedilol 6.25 mg Tablet PO ×2 (10:04→17:37)
[2020-03-26] MEDS: guaiFENesin 600 mg Tablet 1200 MG PO ×2 (10:04→17:37)
[2020-03-26] MEDS: zinc gluconate 50 mg Tablet PO (10:05)
[2020-03-26] MEDS: pantoprazole DR 40 mg Tablet PO ×2 (10:05→17:37)
--- NOTE | 2020-03-26 10:32 | PC.RESP ---
RT helped pt to chair, pt brushed teeth and combed hair. RT changed bedsheets and made bed up.
--- NOTE | 2020-03-26 10:33 | PC.SOCIAL ---
IMM Update. Pg. 2 of IMM discussed with patient's son over the phone. Verbalized understanding.
[2020-03-26] MEDS: TRAMadol 50 mg Tablet PO (13:14)
--- NOTE | 2020-03-26 18:06 | P.PN_ITS ---
Subjective Subjective: Interval history: This morning patient was examined, he sitting up into a chair, states that he is feeling well, has no particular complaints, nurses did get him up this morning, he did desat into the low 80s, requiring titration of his FiO2 up to 100%, currently on 80%, 40 L, states that he is doing well, RT will try to titrate him down, he really wants to go home to his Vitals/I&O/Wt Last Vital Signs Temp 97.8 F 03/26/20 15:00 Pulse 83 03/26/20 16:23 Resp 20 H 03/26/20 16:23 BP 123/83 03/26/20 16:00 Pulse Ox 93 03/26/20 16:23 03/26/20 03/26/20 03/26/20 06:59 14:59 22:59 Intake Total 0 / 600 600 / 600 Output Total 650 / 2100 400 / 400 Balance -650 / -1500 200 / 200 Weight last 48 hrs Weight 66.406 kg Weight 66.339 kg Physical Exam Const: COMMON NORMALS: no acute distress and patient oriented x3 HENMT: COMMON NORMALS: normocephalic HEAD & SCALP: normocephalic Neck/C-Spine: COMMON NORMALS: no JVD Resp: COMMON NORMALS: normal respiratory effort, No retractions, No use of accessory muscles and clear to auscultation bilaterally AUSCULTATION: clear to auscultation bilaterally Cardio: COMMON NORMALS: no JVD, regular rate, regular rhythm, S1 normal heart sound present and S2 normal heart sound present RATE: regular rate RHYTHM: regular rhythm HEART SOUNDS: S1 normal heart sound present and S2 normal heart sound present GI: COMMON NORMALS: Normal to inspection, nondistended, normoactive bowel sounds present, Soft to palpation, non-tender, No hepatosplenomegaly present, no masses and no bruits PALPATION: Yes Soft to palpation and Yes No hepatosplenomegaly present Extremity: COMMON NORMALS: capillary refill normal, no clubbing, cyanosis or edema, no calf tenderness and no pedal edema Neuro: COMMON NORMALS: patient oriented x3 Psych: COMMON NORMALS: mental status grossly normal Urinary Catheter Management^: Coude: Cath Placed During This Visit: yes Reason for Continuing Indwelling Catheter: Accurate Measurement of Urinary Output in Critically Ill Patients Urinary Catheter Date of Insertion: 03/22/20 Urinary Catheter Time of Insertion: 15:00 Data : 03/26/20 03:50 03/26/20 03:50 A&P Assessment and plan (1) ARDS (adult respiratory distress syndrome): Status: Acute (2) Severe acute respiratory syndrome coronavirus 2 (SARS-CoV-2) detected: \ Status: Acute (3) COPD (chronic obstructive pulmonary disease): Status: Acute (4) Hypertension: Status: Acute (5) Retained ureteral stent: Status: Acute (6) Hematuria: Status: Acute (7) Chronic kidney disease (CKD): Status: Acute (8) Abdominal aortic aneurysm (AAA): Status: Acute (9) 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 Patient is currently on heated high flow we will continue to monitor and wean if possible. If patient worsens can put him on BiPAP. Finished his course of antivirals with remdesivir. Continue with IV dexamethasone. Advair, Spiriva. Vitamin C, zinc. Tessalon Perles. Creatinine up to 1.7 today, urine output yesterday 2100 cc, -7 L since admission, hold Lasix for today Continue with Bingham catheter. We will continue to monitor urine output and for clots. If he has any blood clots will switch him over to CBI. Currently on full dose Lovenox, hemoglobin 11.7 Continue to monitor inflammatory markers daily including LDH, fibrinogen, ferritin, D-dimer, CPK, CRP, proBNP. Pulmonary toilet with incentive spirometry and flutter valve, chest vest. Proning as possible. MRSA swab, bacterial antigen, urine Legionella negative. Finished 7-day course of levofloxacin. Hematuria: Secondary to ureteral stents with history of recurrent ureteral stent obstruction. Hemoglobin stable at 11.7 Ureteral stents: Reports follows with Dr. Tolbert. They are overdue for exchange. Case discussed with Dr. Tolbert. For now continue to monitor. Patient catheterized yesterday. Will monitor urine output. If urine output decreases will do bladder scan and if required can do CBI at that time. Hypertension: Goal blood pressure less than 140/90 mmHg. Continue with amlodipine 10 mg daily, Coreg 6.25 mg twice daily. Clonidine 0.1 every 12 as needed. Last echocardiogram from December 2019 shows an EF of 75% with grade 1 diastolic dysfunction with moderate LVH, mild LA and RA dilatation. History of aortic valve replacement: Aspirin for now has been on hold due to recent reports of hematuria. Underlying COPD: Follows with pulmonology. Here we will continue tiotropium. Albuterol. 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 He has been tapered down so far to 12.5 mg prednisone daily. For now on hold with Decadron as above. History of TIA Renal artery stenosis Chronic kidney disease: Creatinine appears close to baseline. Monitor. HTN HLD Carotid artery disease Aortic regurgitation AAA Protonix for daily prophylaxis. Lovenox for DVT prophylaxis Dysphagia diet, with aspiration precautions. We will try to see if he can advance depending on his respiratory status. Out of bed to chair if possible. Severely guarded prognosis. Goals of care: Patient states today that he has been thinking regarding the conversation of goals of care we had yesterday and going forward if needed he would not want to be intubated or have any heroic measures to keep him alive. CODE STATUS has been changed to allow natural . Patient's care was discussed in detail with both patient's son and over the phone today. All the questions were answered. We will work on placement LTAC Plan: Plan for today encourage ambulation, stay positive, hopefully wean down oxygen, hold Lasix for today Attestations Medical Necessity Statement*: Patient requires hospitalization for acute respiratory distress syndrome, secondary to COVID-19 Coding Level of Care Code Acute Shuttle Route Vehicle Operator for [facility] [place] Diagnoses ARDS (adult respiratory distress syndrome) J80 Severe acute respiratory syndrome coronavirus 2 (SARS-CoV-2) detected U07.1 COPD (chronic obstructive pulmonary disease) J44.9 Hypertension I10 Retained ureteral stent Z96.0 Hematuria R31.9 Chronic kidney disease (CKD) N18.9 Abdominal aortic aneurysm (AAA) I71.4 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
[2020-03-26] MEDS: ALPRAZolam 0.25 mg Tablet 0.5 MG PO (21:11)
[2020-03-27] VITALS (33 sets, daily range): BP systolic 109–148; BP diastolic 69–122; PULSE 79–139; RESP 12–31; TEMP 36.4–37.2; O2SAT 85–99; BMI 20.9
--- NOTE | 2020-03-27 00:53 | PC.NURSE ---
DESAT Upon change of shift assessment, nurse was talking to patient. Patient was having conversational dyspnea. During conversation, patients oxygen decreased to 81% on 40L and 85% FiO2. Respiratory notified and increased patients settings to 45L and 90%. Patients respiratory status improved and respiratory decreased settings back to original. Patients oxygen currently at 95%.
[2020-03-27] MEDS: HYDROcodone-acetaminophen 5-325 mg Tablet 1 TAB PO ×3 (03:50→21:05)
[2020-03-27 04:16] LABS: Basophils % 0.2 %; Hematocrit 38.5 % (42.0-52.0); Hemoglobin 11.5 g/dL (11.7-16.6); Lymphocytes # 0.7 10^3/uL (0.8-4.8); Lymphocytes % 5.9 %; Mean Corpuscular HGB Conc 29.9 g/dL (30.0-36.0); Mean Corpuscular Hemoglobin 23.2 pg (28.0-34.0); Mean Corpuscular Volume 77.8 fL (80-94); Mean Platelet Volume 10.5 fL (7.4-10.4); Monocytes # 0.6 10^3/uL (0.2-0.9); Monocytes % 5.2 %; Neutrophils # 9.86 10^3/uL (1.8-7.7); Neutrophils % 84.9 %; Nucleated Red Blood Cells % 0.3 %; Platelet Count 306 10^3/cmm (130-400); Red Blood Count 4.95 10^6/uL (4.1-5.3); Red Cell Distribution Width 20.6 % (12.1-15.1); White Blood Count 11.6 10^3/uL (4.0-10.0)
[2020-03-27 04:32] LABS: Alanine Aminotransferase 25 U/L (0-41); Albumin Level 2.9 g/dL (3.5-5.2); Alkaline Phosphatase 64 IU/L (40-130); Anion Gap 16.3 (5-19); Aspartate Amino Transferase 21 U/L (0-40); Blood Urea Nitrogen 52 mg/dL (8-23); C Reactive Protein 23.5 mg/L (0.0-4.9); Calcium 8.8 mg/dL (8.5-10.5); Carbon Dioxide 22 mmol/L (22-29); Chloride 106 mmol/L (98-107); Globulin 2.6 g/dL (1.3-4.6); Glucose 91 mg/dL (65-115); Magnesium 2.3 mg/dL (1.7-2.3); Osmolality Calculated 304 mOsm/kg (285-295); Potassium 4.3 mmol/L (3.5-5.1); Sodium 140 mmol/L (136-145); Total Bilirubin 0.3 mg/dL (0.15-1.2); Total Protein 5.5 g/dL (6.6-8.7)
[2020-03-27 04:44] LABS: Fibrinogen 495 mg/dL (174-498)
[2020-03-27 04:47] LABS: D Dimer 1.76 ug/mIFEU (0-0.59)
[2020-03-27 04:48] LABS: NT Pro B Type Natriuretic Pept 1747 pg/mL (0-450); Procalcitonin 0.13 ng/mL (0-0.5)
[2020-03-27] MEDS: enoxaparin 80 mg/0.8 mL Syringe 70 MG SUBCUT ×2 (05:56→17:11)
--- NOTE | 2020-03-27 06:42 | PC.NURSE ---
PAIN Patient has norco twice last night. Last dose at 0350. Patient has expressed that the pain is in his eyes and radiates to neck and shoulders.
--- NOTE | 2020-03-27 06:45 | PC.NURSE ---
SHIFT SUMMARY Patient had uneventful night other than one desat during conversation while doing initial assessment. Patients settings were turned back down to original settings by respiratory once patients oxygen increased again. Patient on heated high leela nasal cannula at 40 liters and 80% FiO2. Patient had 625 mL of dark red urine. Patient slept most of night and only request was norco prior to bedtime and 0350.
[2020-03-27] MEDS: albuterol 8 gm MDI 2 PUFF INHALATION ×3 (09:39→21:14)
[2020-03-27] MEDS: guaiFENesin 600 mg Tablet 1200 MG PO ×2 (10:18→17:11)
[2020-03-27] MEDS: benzonatate 100 mg Capsule PO ×3 (10:19→21:05)
[2020-03-27] MEDS: pantoprazole DR 40 mg Tablet PO ×2 (10:19→17:11)
[2020-03-27] MEDS: ferrous gluconate 324 mg Tablet PO ×2 (10:19→17:11)
[2020-03-27] MEDS: amlodipine 10 mg Tablet PO (10:19)
[2020-03-27] MEDS: ascorbic acid 500 mg Tablet PO (10:19)
[2020-03-27] MEDS: dexamethasone 4 mg/mL INJ 6 MG IVP (10:20)
[2020-03-27] MEDS: zinc gluconate 50 mg Tablet PO (10:25)
[2020-03-27] MEDS: duloxetine 30 mg Capsule PO (10:26)
[2020-03-27] MEDS: carvedilol 6.25 mg Tablet PO ×2 (11:03→17:11)
[2020-03-27] MEDS: FUROsemide 10 mg/mL SDV 4mL 40 MG IVP (12:05)
--- NOTE | 2020-03-27 12:14 | PM.PN ---
Subjective Subjective: Interval history: This morning patient was examined, he sitting up in bed, a bit discouraged as he still on high flow, nursing staff tell me that when they get up and move around, he does have prolonged and significant desaturations to the low 80s, overall no fevers, chills, no nausea, no vomiting, no chest pain Vitals/I&O/Wt Last Vital Signs Temp 97.8 F 03/26/20 15:00 Pulse 94 03/27/20 11:21 Resp 24 H 03/27/20 11:21 BP 148/100 03/27/20 06:00 Pulse Ox 92 03/27/20 11:21 03/26/20 03/27/20 03/27/20 22:59 06:59 14:59 Intake Total 300 / 900 Output Total 400 / 800 625 / 1425 Balance -100 / 100 -625 / -525 Weight last 48 hrs Weight 66.406 kg Physical Exam Const: COMMON NORMALS: no acute distress and patient oriented x3 HENMT: COMMON NORMALS: normocephalic HEAD & SCALP: normocephalic Neck/C-Spine: COMMON NORMALS: no JVD Resp: COMMON NORMALS: normal respiratory effort, No retractions and No use of accessory muscles AUSCULTATION: crackles and wheezes Cardio: COMMON NORMALS: no JVD, regular rate, regular rhythm, S1 normal heart sound present and S2 normal heart sound present RATE: regular rate RHYTHM: regular rhythm HEART SOUNDS: S1 normal heart sound present and S2 normal heart sound present GI: COMMON NORMALS: Normal to inspection, nondistended, normoactive bowel sounds present, Soft to palpation, non-tender, No hepatosplenomegaly present, no masses and no bruits PALPATION: Yes Soft to palpation and Yes No hepatosplenomegaly present Extremity: COMMON NORMALS: capillary refill normal, no clubbing, cyanosis or edema, no calf tenderness and no pedal edema Neuro: COMMON NORMALS: patient oriented x3 Psych: COMMON NORMALS: mental status grossly normal Urinary Catheter Management^: Coude: Cath Placed During This Visit: yes Reason for Continuing Indwelling Catheter: Acute Urinary Retention or Obstruction Urinary Catheter Date of Insertion: 03/22/20 Urinary Catheter Time of Insertion: 15:00 Data : 03/27/20 03:12 03/27/20 03:12 A&P Assessment and plan (1) ARDS (adult respiratory distress syndrome): Status: Acute (2) Severe acute respiratory syndrome coronavirus 2 (SARS-CoV-2) detected: \ Status: Acute (3) COPD (chronic obstructive pulmonary disease): Status: Acute (4) Hypertension: Status: Acute (5) Retained ureteral stent: Status: Acute (6) Hematuria: Status: Acute (7) Chronic kidney disease (CKD): Status: Acute (8) Abdominal aortic aneurysm (AAA): Status: Acute (9) 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 Patient is currently on heated high flow we will continue to monitor and wean if possible. If patient worsens can put him on BiPAP. Finished his course of antivirals with remdesivir. Continue with IV dexamethasone. Advair, Spiriva. Vitamin C, zinc. Tessalon Perles. Creatinine up to 1.5 today, urine output yesterday 2100 cc, -7 L since admission, 40 mg Lasix today Continue with Bingham catheter. We will continue to monitor urine output and for clots. If he has any blood clots will switch him over to CBI. Currently on full dose Lovenox, hemoglobin 11.5 Continue to monitor inflammatory markers daily including LDH, fibrinogen, ferritin, D-dimer, CPK, CRP, proBNP. Pulmonary toilet with incentive spirometry and flutter valve, chest vest. Proning as possible. MRSA swab, bacterial antigen, urine Legionella negative. Finished 7-day course of levofloxacin. Hematuria: Secondary to ureteral stents with history of recurrent ureteral stent obstruction. Hemoglobin stable at 11.5 Ureteral stents: Reports follows with Dr. Tolbert. They are overdue for exchange. Case discussed with Dr. Tolbert. For now continue to monitor. Patient catheterized yesterday. Will monitor urine output. If urine output decreases will do bladder scan and if required can do CBI at that time. Hypertension: Goal blood pressure less than 140/90 mmHg. Continue with amlodipine 10 mg daily, Coreg 6.25 mg twice daily. Clonidine 0.1 every 12 as needed. Last echocardiogram from December 2019 shows an EF of 75% with grade 1 diastolic dysfunction with moderate LVH, mild LA and RA dilatation. History of aortic valve replacement: Aspirin for now has been on hold due to recent reports of hematuria. Underlying COPD: Follows with pulmonology. Here we will continue tiotropium. Albuterol. 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 He has been tapered down so far to 12.5 mg prednisone daily. For now on hold with Decadron as above. History of TIA Renal artery stenosis Chronic kidney disease: Creatinine appears close to baseline. Monitor. HTN HLD Carotid artery disease Aortic regurgitation AAA Protonix for daily prophylaxis. Lovenox for DVT prophylaxis General diet, with aspiration precautions. Out of bed to chair if possible. Severely guarded prognosis. Goals of care: Patient states today that he has been thinking regarding the conversation of goals of care we had yesterday and going forward if needed he would not want to be intubated or have any heroic measures to keep him alive. CODE STATUS has been changed to allow natural . Patient's care was discussed in detail with both patient's son and over the phone today. All the questions were answered. We will work on placement LTAC Plan: Plan for today encourage ambulation, stay positive, Lasix today, seriously consider LTAC placement, still too unstable to move to the floors due to significant desaturation episodes with minimal exertion Attestations Medical Necessity Statement*: Requires hospitalization for acute respiratory distress syndrome secondary to COVID-19, Coding Level of Care Code Acute Patients Transporter for [facility] Diagnoses ARDS (adult respiratory distress syndrome) J80 Severe acute respiratory syndrome coronavirus 2 (SARS-CoV-2) detected U07.1 COPD (chronic obstructive pulmonary disease) J44.9 Hypertension I10 Retained ureteral stent Z96.0 Hematuria R31.9 Chronic kidney disease (CKD) N18.9 Abdominal aortic aneurysm (AAA) I71.4 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
[2020-03-27] MEDS: potassium chloride ER 10 mEq Tablet 20 MEQ PO (15:01)
[2020-03-27] MEDS: morphine 4 mg/mL SDV 1 mL 1 MG IVP (17:12)
[2020-03-27] MEDS: ALPRAZolam 0.25 mg Tablet 0.5 MG PO (21:05)
[2020-03-27] MEDS: polyethylene glycol 3350 Pkt 17 gm PO (21:05)
[2020-03-28] VITALS (40 sets, daily range): BP systolic 102–154; BP diastolic 78–109; PULSE 71–101; RESP 7–37; TEMP 36.4–37.1; O2SAT 88–100
[2020-03-28 03:58] LABS: Basophils % 0.1 %; Hematocrit 39.2 % (42.0-52.0); Hemoglobin 11.7 g/dL (11.7-16.6); Lymphocytes # 0.7 10^3/uL (0.8-4.8); Lymphocytes % 4.7 %; Mean Corpuscular HGB Conc 29.8 g/dL (30.0-36.0); Mean Corpuscular Hemoglobin 23.4 pg (28.0-34.0); Mean Corpuscular Volume 78.6 fL (80-94); Mean Platelet Volume 10.9 fL (7.4-10.4); Monocytes # 0.7 10^3/uL (0.2-0.9); Monocytes % 5.1 %; Neutrophils # 12.02 10^3/uL (1.8-7.7); Neutrophils % 87.8 %; Nucleated Red Blood Cells % 0.1 %; Platelet Count 291 10^3/cmm (130-400); Red Blood Count 4.99 10^6/uL (4.1-5.3); Red Cell Distribution Width 21.1 % (12.1-15.1); White Blood Count 13.7 10^3/uL (4.0-10.0)
[2020-03-28 04:26] LABS: Alanine Aminotransferase 29 U/L (0-41); Alkaline Phosphatase 62 IU/L (40-130); Anion Gap 14.1 (5-19); Aspartate Amino Transferase 25 U/L (0-40); Blood Urea Nitrogen 56 mg/dL (8-23); Carbon Dioxide 25 mmol/L (22-29); Chloride 105 mmol/L (98-107); Glucose 105 mg/dL (65-115); Magnesium 2.3 mg/dL (1.7-2.3); Osmolality Calculated 306 mOsm/kg (285-295); Phosphorus 4.1 mg/dL (2.5-4.5); Potassium 4.1 mmol/L (3.5-5.1); Sodium 140 mmol/L (136-145); Total Bilirubin 0.4 mg/dL (0.15-1.2)
[2020-03-28] MEDS: HYDROcodone-acetaminophen 5-325 mg Tablet 1 TAB PO ×4 (05:03→20:59)
[2020-03-28] MEDS: enoxaparin 80 mg/0.8 mL Syringe 70 MG SUBCUT ×2 (06:40→17:03)
--- NOTE | 2020-03-28 07:38 | PC.NURSE ---
ANXIOUS Patient expressed to nurse at the beginning of shift that he was anxious about decisions being made about where he was going post discharge from the hospital. Patient expressed that it was a huge life change for him and requested something for anxiety. Xanax given.
--- NOTE | 2020-03-28 07:40 | PC.NURSE ---
MIRALAX Miralax held on previous shift due to patient refusing. Miralax given this shift per patient request.
--- NOTE | 2020-03-28 07:42 | PC.NURSE ---
SHIFT SUMMARY Patient had uneventful night. Patient remains on heated high leela nasal cannula at 40 L and 90% FiO2. Patient alert and oriented x 4. 725 mL urine output. Patient rested well.
[2020-03-28] MEDS: guaiFENesin 600 mg Tablet 1200 MG PO ×2 (08:10→17:04)
[2020-03-28] MEDS: zinc gluconate 50 mg Tablet PO (08:10)
[2020-03-28] MEDS: dexamethasone 4 mg/mL INJ 6 MG IVP (08:11)
[2020-03-28] MEDS: amlodipine 10 mg Tablet PO (08:11)
[2020-03-28] MEDS: benzonatate 100 mg Capsule PO ×3 (08:11→20:59)
[2020-03-28] MEDS: pantoprazole DR 40 mg Tablet PO ×2 (08:11→17:04)
[2020-03-28] MEDS: ascorbic acid 500 mg Tablet PO (08:11)
[2020-03-28] MEDS: ferrous gluconate 324 mg Tablet PO ×2 (08:11→17:04)
[2020-03-28] MEDS: carvedilol 6.25 mg Tablet PO ×2 (08:12→17:09)
[2020-03-28] MEDS: duloxetine 30 mg Capsule PO (08:12)
[2020-03-28] MEDS: albuterol 8 gm MDI 2 PUFF INHALATION ×3 (08:27→19:43)
--- NOTE | 2020-03-28 09:23 | PC.SOCIAL ---
IMM update Pg. 2 of IMM updated and reviewed with patient's son, Javid, over the phone.
--- NOTE | 2020-03-28 11:49 | P.PN_ITS ---
Subjective Subjective: Interval history: This morning patient was examined, he sitting up in chair, states that he is feeling well, no nausea, no vomiting, no chest pain, no shortness of breath. I had a discussion with patient and his , patient has been here 10 days, he has done so well, however remains on high flow, and I foresee that he will remain on high flow for some period of time, and will take time for us to wean his oxygen requirement, and will take time for his lungs to heal. He needs LTAC placement, this is the best long-term option for him, there are no facilities in [place]. Based on my previous discussions with patient and his , it is quite upsetting now that he has to go to [place], they want to remain together, which is understandable. However, I feel that we have medically optimize him, and now we will just have to give him in his lung some time to heal. All parties voiced understanding, all questions answered, agreed to LTAC placement Vitals/I&O/Wt Last Vital Signs Temp 98.8 F 03/28/20 07:00 Pulse 92 03/28/20 11:12 Resp 18 03/28/20 11:12 BP 143/89 03/28/20 10:00 Pulse Ox 92 03/28/20 11:12 03/27/20 03/28/20 03/28/20 22:59 06:59 14:59 Intake Total 480 / 720 360 / 360 Output Total 1725 / 1725 400 / 2125 Balance -1245 / -1005 -400 / -1405 360 / 360 Weight last 48 hrs Weight 67.222 kg Weight 66.406 kg Physical Exam Const: COMMON NORMALS: no acute distress and patient oriented x3 HENMT: COMMON NORMALS: normocephalic HEAD & SCALP: normocephalic Neck/C-Spine: COMMON NORMALS: no JVD Resp: COMMON NORMALS: normal respiratory effort, No retractions, No use of accessory muscles and clear to auscultation bilaterally AUSCULTATION: clear to auscultation bilaterally Cardio: COMMON NORMALS: no JVD, regular rate, regular rhythm, S1 normal heart sound present and S2 normal heart sound present RATE: regular rate RHYTHM: regular rhythm HEART SOUNDS: S1 normal heart sound present and S2 normal heart sound present GI: COMMON NORMALS: Normal to inspection, nondistended, normoactive bowel sounds present, Soft to palpation, non-tender, No hepatosplenomegaly present, no masses and no bruits PALPATION: Yes Soft to palpation and Yes No hepatosplenomegaly present Extremity: COMMON NORMALS: capillary refill normal, no clubbing, cyanosis or edema, no calf tenderness and no pedal edema Neuro: COMMON NORMALS: patient oriented x3 Psych: COMMON NORMALS: mental status grossly normal Urinary Catheter Management^: Coude: Cath Placed During This Visit: yes Reason for Continuing Indwelling Catheter: Accurate Measurement of Urinary Output in Critically Ill Patients Urinary Catheter Date of Insertion: 03/22/20 Urinary Catheter Time of Insertion: 15:00 Data : 03/28/20 03:28 03/28/20 03:28 A&P Assessment and plan (1) ARDS (adult respiratory distress syndrome): Status: Acute (2) Severe acute respiratory syndrome coronavirus 2 (SARS-CoV-2) detected: \ Status: Acute (3) COPD (chronic obstructive pulmonary disease): Status: Acute (4) Hypertension: Status: Acute (5) Retained ureteral stent: Status: Acute (6) Hematuria: Status: Acute (7) Chronic kidney disease (CKD): Status: Acute (8) Abdominal aortic aneurysm (AAA): Status: Acute (9) 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 Patient is currently on heated high flow we will continue to monitor and wean if possible. If patient worsens can put him on BiPAP. Finished his course of antivirals with remdesivir. Continue with IV dexamethasone. Advair, Spiriva. Vitamin C, zinc. Tessalon Perles. Creatinine up to 1.6 today, urine output yesterday 2100 cc, -9 L since admission, hold Lasix for today Continue with Bingham catheter. We will continue to monitor urine output and for clots. If he has any blood clots will switch him over to CBI. Currently on full dose Lovenox, hemoglobin 11.7 Continue to monitor inflammatory markers daily including LDH, fibrinogen, ferritin, D-dimer, CPK, CRP, proBNP. Pulmonary toilet with incentive spirometry and flutter valve, chest vest. Proning as possible. MRSA swab, bacterial antigen, urine Legionella negative. Finished 7-day course of levofloxacin. Hematuria: Secondary to ureteral stents with history of recurrent ureteral stent obstruction. Hemoglobin stable at 11.7 Ureteral stents: Reports follows with Dr. Tolbert. They are overdue for exchange. Case discussed with Dr. Tolbert. For now continue to monitor. Patient catheterized yesterday. Will monitor urine output. If urine output decreases will do bladder scan and if required can do CBI at that time. Hypertension: Goal blood pressure less than 140/90 mmHg. Continue with amlodipine 10 mg daily, Coreg 6.25 mg twice daily. Clonidine 0.1 every 12 as needed. Last echocardiogram from December 2019 shows an EF of 75% with grade 1 diastolic dysfunction with moderate LVH, mild LA and RA dilatation. History of aortic valve replacement: Aspirin for now has been on hold due to recent reports of hematuria. Underlying COPD: Follows with pulmonology. Here we will continue tiotropium. Albuterol. Steroid as above Recently has been diagnosed with temporal arteritis for which has been on pre dnisone taper. He has been tapered down so far to 12.5 mg prednisone daily. For now on hold with Decadron as above. History of TIA Renal artery stenosis Chronic kidney disease: Creatinine appears close to baseline. Monitor. HTN HLD Carotid artery disease Aortic regurgitation AAA Protonix for daily prophylaxis. Lovenox for DVT prophylaxis General diet, with aspiration precautions. Out of bed to chair if possible. Severely guarded prognosis. Goals of care: Patient states today that he has been thinking regarding the conversation of goals of care we had yesterday and going forward if needed he would not want to be intubated or have any heroic measures to keep him alive. CODE STATUS has been changed to allow natural . Patient's care was discussed in detail with both patient's son and over the phone today. All the questions were answered. We will work on placement LTAC Plan: Plan for today encourage ambulation, stay positive, hold Lasix, working on LTAC placement Attestations Medical Necessity Statement*: Requires hospitalization for acute respiratory distress syndrome secondary to COVID-19 Coding Level of Care Code Acute Senior Net Developer Architect for [facility] Diagnoses ARDS (adult respiratory distress syndrome) J80 Severe acute respiratory syndrome coronavirus 2 (SARS-CoV-2) detected U07.1 COPD (chronic obstructive pulmonary disease) J44.9 Hypertension I10 Retained ureteral stent Z96.0 Hematuria R31.9 Chronic kidney disease (CKD) N18.9 Abdominal aortic aneurysm (AAA) I71.4 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
--- NOTE | 2020-03-28 18:45 | PC.NURSE ---
Received report on patient from Steph MARTIN. Assumed care at this time.
[2020-03-28] MEDS: morphine 4 mg/mL SDV 1 mL 1 MG IVP (19:39)
[2020-03-28] MEDS: polyethylene glycol 3350 Pkt 17 gm PO (21:00)
[2020-03-28] MEDS: ALPRAZolam 0.25 mg Tablet 0.5 MG PO (21:00)
[2020-03-28] MEDS: trazodone 150 mg Tablet PO (21:00)
[2020-03-29] VITALS (42 sets, daily range): BP systolic 98–157; BP diastolic 68–110; PULSE 75–109; RESP 12–36; TEMP 36.6–37.1; O2SAT 78–100; BMI 21.2
--- NOTE | 2020-03-29 01:03 | PC.NURSE ---
Patient resting quietly in bed with eyes closed. No s/s of distress noted.
[2020-03-29] MEDS: enoxaparin 80 mg/0.8 mL Syringe 70 MG SUBCUT (05:00)
[2020-03-29 05:03] LABS: Basophils % 0.2 %; Hematocrit 39.2 % (42.0-52.0); Hemoglobin 11.8 g/dL (11.7-16.6); Lymphocytes # 0.7 10^3/uL (0.8-4.8); Lymphocytes % 5.4 %; Mean Corpuscular HGB Conc 30.1 g/dL (30.0-36.0); Mean Corpuscular Hemoglobin 23.6 pg (28.0-34.0); Mean Corpuscular Volume 78.6 fL (80-94); Mean Platelet Volume 10.8 fL (7.4-10.4); Monocytes # 0.7 10^3/uL (0.2-0.9); Monocytes % 5.3 %; Neutrophils # 11.85 10^3/uL (1.8-7.7); Neutrophils % 86.8 %; Nucleated Red Blood Cells % 0.1 %; Platelet Count 269 10^3/cmm (130-400); Red Blood Count 4.99 10^6/uL (4.1-5.3); Red Cell Distribution Width 21.4 % (12.1-15.1); White Blood Count 13.7 10^3/uL (4.0-10.0)
[2020-03-29 05:23] LABS: Alanine Aminotransferase 38 U/L (0-41); Albumin Level 2.9 g/dL (3.5-5.2); Alkaline Phosphatase 62 IU/L (40-130); Aspartate Amino Transferase 34 U/L (0-40); Blood Urea Nitrogen 58 mg/dL (8-23); Calcium 8.8 mg/dL (8.5-10.5); Carbon Dioxide 22 mmol/L (22-29); Chloride 108 mmol/L (98-107); Globulin 3.1 g/dL (1.3-4.6); Glucose 102 mg/dL (65-115); Magnesium 2.3 mg/dL (1.7-2.3); Osmolality Calculated 306 mOsm/kg (285-295); Phosphorus 3.5 mg/dL (2.5-4.5); Sodium 140 mmol/L (136-145); Total Bilirubin 0.3 mg/dL (0.15-1.2)
[2020-03-29 05:36] LABS: Anion Gap 14.7 (5-19); Potassium 4.7 mmol/L (3.5-5.1)
--- NOTE | 2020-03-29 07:03 | PC.NURSE ---
Report given to Steph MARTIN.
[2020-03-29] MEDS: guaiFENesin 600 mg Tablet 1200 MG PO ×2 (08:17→17:14)
[2020-03-29] MEDS: zinc gluconate 50 mg Tablet PO (08:17)
[2020-03-29] MEDS: pantoprazole DR 40 mg Tablet PO ×2 (08:17→17:14)
[2020-03-29] MEDS: HYDROcodone-acetaminophen 5-325 mg Tablet 1 TAB PO ×3 (08:17→15:39)
[2020-03-29] MEDS: amlodipine 10 mg Tablet PO (08:17)
[2020-03-29] MEDS: benzonatate 100 mg Capsule PO ×2 (08:17→15:40)
[2020-03-29] MEDS: dexamethasone 4 mg/mL INJ 6 MG IVP (08:17)
[2020-03-29] MEDS: duloxetine 30 mg Capsule PO (08:17)
[2020-03-29] MEDS: ferrous gluconate 324 mg Tablet PO ×2 (08:17→17:14)
[2020-03-29] MEDS: carvedilol 6.25 mg Tablet PO ×2 (08:17→17:14)
[2020-03-29] MEDS: ascorbic acid 500 mg Tablet PO (08:17)
--- NOTE | 2020-03-29 11:43 | PM.PN ---
Subjective Subjective: Interval history: Patient was examined this morning, he states that he had a difficult night, has multiple joint complaints, back pain, neck pain, is a bit frustrated about not knowing when he is going to go up to [place] Vitals/I&O/Wt Last Vital Signs Temp 98.8 F 03/29/20 08:00 Pulse 94 03/29/20 10:30 Resp 20 H 03/29/20 10:30 BP 120/90 03/29/20 10:30 Pulse Ox 99 03/29/20 10:30 03/28/20 03/29/20 03/29/20 22:59 06:59 14:59 Intake Total 480 / 1080 240 / 1320 360 / 360 Output Total 1700 / 1700 650 / 2350 Balance -1220 / -620 -410 / -1030 360 / 360 Weight last 48 hrs Weight 67.222 kg Weight 67.222 kg Physical Exam Const: COMMON NORMALS: no acute distress and patient oriented x3 HENMT: COMMON NORMALS: normocephalic HEAD & SCALP: normocephalic Neck/C-Spine: COMMON NORMALS: no JVD Resp: COMMON NORMALS: normal respiratory effort, No retractions, No use of accessory muscles and clear to auscultation bilaterally AUSCULTATION: clear to auscultation bilaterally Cardio: COMMON NORMALS: no JVD, regular rate, regular rhythm, S1 normal heart sound present and S2 normal heart sound present RATE: regular rate RHYTHM: regular rhythm HEART SOUNDS: S1 normal heart sound present and S2 normal heart sound present GI: COMMON NORMALS: Normal to inspection, nondistended, normoactive bowel sounds present, Soft to palpation, non-tender, No hepatosplenomegaly present, no masses and no bruits PALPATION: Yes Soft to palpation and Yes No hepatosplenomegaly present Extremity: COMMON NORMALS: capillary refill normal, no clubbing, cyanosis or edema, no calf tenderness and no pedal edema Neuro: COMMON NORMALS: patient oriented x3 Psych: COMMON NORMALS: mental status grossly normal Urinary Catheter Management^: Coude: Cath Placed During This Visit: yes Reason for Continuing Indwelling Catheter: Accurate Measurement of Urinary Output in Critically Ill Patients Urinary Catheter Date of Insertion: 03/22/20 Urinary Catheter Time of Insertion: 15:00 Data : 03/29/20 02:55 03/29/20 02:55 A&P Assessment and plan (1) ARDS (adult respiratory distress syndrome): Status: Acute (2) Severe acute respiratory syndrome coronavirus 2 (SARS-CoV-2) detected: \ Status: Acute (3) COPD (chronic obstructive pulmonary disease): Status: Acute (4) Hypertension: Status: Acute (5) Retained ureteral stent: Status: Acute (6) Hematuria: Status: Acute (7) Chronic kidney disease (CKD): Status: Acute (8) Abdominal aortic aneurysm (AAA): Status: Acute (9) 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 Patient is currently on heated high flow we will continue to monitor and wean if possible. If patient worsens can put him on BiPAP. Finished his course of antivirals with remdesivir. Continue with IV dexamethasone. Advair, Spiriva. Vitamin C, zinc. Tessalon Perles. Creatinine up to 1.4 today, urine output yesterday 2350 cc, -9.84 L since admission, hold Lasix for today Continue with Bingham catheter. We will continue to monitor urine output and for clots. If he has any blood clots will switch him over to CBI. Currently on full dose Lovenox, hemoglobin 11.7 Continue to monitor inflammatory markers daily including LDH, fibrinogen, ferritin, D-dimer, CPK, CRP, proBNP. Pulmonary toilet with incentive spirometry and flutter valve, chest vest. Proning as possible. MRSA swab, bacterial antigen, urine Legionella negative. Finished 7-day course of levofloxacin. Hematuria: Secondary to ureteral stents with history of recurrent ureteral stent obstruction. Hemoglobin stable at 11.7 Ureteral stents: Reports follows with Dr. Tolbert. They are overdue for exchange. Case discussed with Dr. Tolbert. For now continue to monitor. Patient catheterized yesterday. Will monitor urine output. If urine output decreases will do bladder scan and if required can do CBI at that time. Hypertension: Goal blood pressure less than 140/90 mmHg. Continue with amlodipine 10 mg daily, Coreg 6.25 mg twice daily. Clonidine 0.1 every 12 as needed. Last echocardiogram from December 2019 shows an EF of 75% with grade 1 diastolic dysfunction with moderate LVH, mild LA and RA dilatation. History of aortic valve replacement: Aspirin for now has been on hold due to recent reports of hematuria. Underlying COPD: Follows with pulmonology. Here we will continue tiotropium. Albuterol. 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 He has been tapered down so far to 12.5 mg prednisone daily. For now on hold with Decadron as above. History of TIA Renal artery stenosis Chronic kidney disease: Creatinine appears close to baseline. Monitor. HTN HLD Carotid artery disease Aortic regurgitation AAA Protonix for daily prophylaxis. Lovenox for DVT prophylaxis General diet, with aspiration precautions. Out of bed to chair if possible. Severely guarded prognosis. Goals of care: Patient states today that he has been thinking regarding the conversation of goals of care we had yesterday and going forward if needed he would not want to be intubated or have any heroic measures to keep him alive. CODE STATUS has been changed to allow natural . Patient's care was discussed in detail with both patient's son and over the phone today. All the questions were answered. 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
--- NOTE | 2020-03-29 14:31 | P.TS_ITS ---
Transfer Summary Providers Date of Admission: 03/17/20 10:55 Date of Discharge: 03/29/20 Attending Provider at Admission: Davon Pate Attending Provider at Transfer: Broderick Myers MD Primary Care Provider: Edwar Peres MD Anticipated Date of Transfer: Anticipated date of transfer: 03/29/20 Receiving Facility & Provider: Receiving Provider: [] Receiving facility: [] Diagnoses at Discharge Discharge Diagnosis (1) ARDS (adult respiratory distress syndrome): Status: Acute (2) Severe acute respiratory syndrome coronavirus 2 (SARS-CoV-2) detected: Status: Acute (3) COPD (chronic obstructive pulmonary disease): Status: Acute (4) Hypertension: Status: Acute (5) Retained ureteral stent: Status: Acute (6) Hematuria: Status: Acute (7) Chronic kidney disease (CKD): Status: Acute (8) Abdominal aortic aneurysm (AAA): Status: Acute (9) 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 for shortness of breath Patient was admitted to [facility] for shortness of breath secondary to ARDS, COVID19 pneumoniae, admitted to viral ICU,received 5 days of remdesvir, decadron, advair, spiriva, levaquin, oxygen therapy, PRN lasix, therapeutic lovenox for hypercoagulability, agressive pulmonary toilet. Patient clinically improved, remained afebrile, diuresed over 9 L, however remained on high flow and would have tacyhpnea episodes anf desat epiosde with minimal exertion. After discussion with patient and , decision was made to transfer to LTAC ([facility]) in [place] for pulmonary rehab and prolonged high flow requirements. ARDS secondary to severe COVID-19 pneumonia: Keep saturation over 90%. Patient is currently on heated high flow we will continue to monitor and wean if possible. If patient worsens can put him on BiPAP. Finished his course of antivirals with remdesivir. Continue with IV dexamethasone. Advair, Spiriva. Vitamin C, zinc. Tessalon Perles. Creatinine up to 1.4 today, urine output yesterday 2350 cc, -9.84 L since admission, hold Lasix for today Continue with Bingham catheter. We will continue to monitor urine output and for clots. If he has any blood clots will switch him over to CBI. Currently on full dose Lovenox, hemoglobin 11.7 Continue to monitor inflammatory markers daily including LDH, fibrinogen, f erritin, D-dimer, CPK, CRP, proBNP. Pulmonary toilet with incentive spirometry and flutter valve, chest vest. Proning as possible. MRSA swab, bacterial antigen, urine Legionella negative. Finished 7-day course of levofloxacin. Hematuria: Secondary to ureteral stents with history of recurrent ureteral stent obstruction. Hemoglobin stable at 11.7 Ureteral stents: Reports follows with Dr. Tolbert. They are overdue for exchange. Case discussed with Dr. Tolbert. For now continue to monitor. Patient catheterized yesterday. Will monitor urine output. If urine output decreases will do bladder scan and if required can do CBI at that time. Hypertension: Goal blood pressure less than 140/90 mmHg. Continue with amlodipine 10 mg daily, Coreg 6.25 mg twice daily. Clonidine 0.1 every 12 as needed. Last echocardiogram from December 2019 shows an EF of 75% with grade 1 diastolic dysfunction with moderate LVH, mild LA and RA dilatation. History of aortic valve replacement: Aspirin for now has been on hold due to recent reports of hematuria. Underlying COPD: Follows with pulmonology. Here we will continue tiotropium. Albuterol. 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 He has been tapered down so far to 12.5 mg prednisone daily. For now on hold with Decadron as above. History of TIA Renal artery stenosis Chronic kidney disease: Creatinine appears close to baseline. Monitor. HTN HLD Carotid artery disease Aortic regurgitation AAA Protonix for daily prophylaxis. Lovenox for DVT prophylaxis General diet, with aspiration precautions. Out of bed to chair if possible. Physical Exam Const: COMMON NORMALS: no acute distress and patient oriented x3 HENMT: COMMON NORMALS: normocephalic HEAD & SCALP: normocephalic Neck/C-Spine: COMMON NORMALS: no JVD Resp: COMMON NORMALS: normal respiratory effort, No retractions, No use of accessory muscles and clear to auscultation bilaterally AUSCULTATION: clear to auscultation bilaterally Cardio: COMMON NORMALS: no JVD, regular rate, regular rhythm, S1 normal heart sound present and S2 normal heart sound present RATE: regular rate RHYTHM: regular rhythm HEART SOUNDS: S1 normal heart sound present and S2 normal heart sound present GI: COMMON NORMALS: Normal to inspection, nondistended, normoactive bowel sounds present, Soft to palpation, non-tender, No hepatosplenomegaly present, no masses and no bruits PALPATION: Yes Soft to palpation and Yes No hepatosplenomegaly present Extremity: COMMON NORMALS: capillary refill normal, no clubbing, cyanosis or edema, no calf tenderness and no pedal edema Neuro: COMMON NORMALS: patient oriented x3 Psych: COMMON NORMALS: mental status grossly normal Urinary Catheter Management^: Coude: Cath Placed During This Visit: yes Reason for Continuing Indwelling Catheter: Accurate Measurement of Urinary Output in Critically Ill Patients Urinary Catheter Date of Insertion: 03/22/20 Urinary Catheter Time of Insertion: 15:00 TS Data Data Completed and Pending: Completed Studies During Hospitalization Category Date Time Status CT angio chest PE protcl [id number] Stat Cat Scan 03/17/20 09:59 Completed XR chest 1V lidia ble 25735 Q48H Exams 03/22/20 06:00 Completed XR chest 1V lidia ble 71677 Q48H Exams 03/24/20 06:00 Completed XR chest 1V lidia ble 33031 Q48H Exams 03/26/20 06:00 Completed XR chest 1V lidia ble [id number] Routine Exams 03/25/20 07:00 Completed XR chest 1V lidia ble [id number] Stat Exams 03/17/20 09:57 Completed Pending at discharge Category Date Time Status Complete Blood Co unt w/Auto AM LABS Lab 03/30/20 04:00 Ordered Comprehensive Met abolic Panel AM LA BS Lab 03/30/20 04:00 Ordered Magnesium AM LABS Lab 03/30/20 04:00 Ordered Phosphorus AM LAB S Lab 03/30/20 04:00 Ordered Labs from last 24 hours 03/29/20 03/29/20 02:55 02:55 WBC 13.7 H RBC 4.99 Hgb 11.8 Hct 39.2 L MCV 78.6 L MCH 23.6 L MCHC 30.1 RDW 21.4 H Plt Count 269 MPV 10.8 H Neut % (Auto) 86.8 Lymph % (Auto) 5.4 [place] % (Auto) 5.3 Eos % (Auto) 0.0 Baso % (Auto) 0.2 Neut # (Auto) 11.85 H Lymph # (Auto) 0.7 L [place] # (Auto) 0.7 Eos # (Auto) 0.0 Baso # (Auto) 0.0 Nucleated RBC % (a uto) 0.1 Nucleated RBCs # 0.0 Sodium 140 Potassium 4.7 Chloride 108 H Carbon Dioxide 22 Anion Gap 14.7 BUN 58 H Creatinine 1.4 H GFR Calculation Not Reportable Glucose 102 Calculated Osmolal ity 306 H Calcium 8.8 Phosphorus 3.5 Magnesium 2.3 Total Bilirubin 0.3 AST 34 ALT 38 Alkaline Phosphata se 62 Total Protein 6.0 L Albumin 2.9 L Globulin 3.1 Vitals: Last Vital Signs Temp 97.9 F 03/29/20 12:00 Pulse 90 03/29/20 12:30 Resp 18 03/29/20 12:30 BP 122/89 03/29/20 12:30 Pulse Ox 100 03/29/20 12:30 TS Medications Medications Home Medications alprazolam 0.5 mg PO TID PRN 05/13/19 [History Confirmed 03/17/20] diphenhydramine-acetaminophen [Tylenol PM Extra Strength] 1 tab PO BEDTIME PRN 05/13/19 [History Confirmed 03/17/20] duloxetine [Cymbalta] 30 mg PO DAILY 05/13/19 [History Confirmed 03/17/20] hydrocodone-acetaminophen [Latimer] 1 tab PO Q6H PRN 05/13/19 [History Confirmed 03/17/20] pantoprazole 40 mg PO BID 05/13/19 [History Confirmed 03/17/20] albuterol sulfate 90 mcg/actuation aerosol inhaler 2 puff INHALATION Q6H PRN 30 Days #18 gm 12/14/19 [Rx Confirmed 03/17/20] polyethylene glycol 3350 17 gram oral powder packet 17 g PO BEDTIME 03/01/20 [History Confirmed 03/17/20] prednisone 5 mg tablet 20 mg PO DAILY tab 03/01/20 [History Confirmed 03/17/20] tiotropium 2.5 mcg-olodaterol 2.5 mcg/actuation mist for inhalation 2 puff I NHALATION Q24H 30 Days #4 gm 03/01/20 [Rx Confirmed 03/17/20] carvedilol 6.25 mg PO BID 03/07/20 [History Confirmed 03/17/20] cefuroxime axetil 500 mg PO BID 03/17/20 [History Confirmed 03/17/20] fluconazole 150 mg PO DAILY 03/17/20 [History Confirmed 03/17/20] Active Medications Acetaminophen (Tylenol) 650 mg PO Q6H PRN PRN Reason: Mild/Mod Pain Or Temp >/= 101 Hydrocodone Bitart/Acetaminophen (Hydrocodone-Acetaminophen 5-325 Mg Tablet) 1 tab PO Q6H PRN PRN Reason: Pain Last Admin: 03/29/20 08:17 Dose: 1 tab Documented by: Hydrocodone Bitart/Acetaminophen (Hydrocodone-Acetaminophen 5-325 Mg Tablet) 1 tab PO Q4H PRN PRN Reason: MODERATE PAIN Last Admin: 03/29/20 11:46 Dose: 1 tab Documented by: Albuterol Sulfate (Ventolin) 2 puff INHALATION Q6H PRN PRN Reason: shortness of breath or wheezing Last Admin: 03/28/20 19:43 Dose: 2 puff Documented by: Alprazolam (Alprazolam 0.25 Mg Tablet) 0.5 mg PO TID PRN PRN Reason: unknown Last Admin: 03/28/20 21:00 Dose: 0.5 mg Documented by: Amlodipine Besylate (Norvasc) 10 mg PO DAILY PENDING SALE TO [facility] Last Admin: 03/29/20 08:17 Dose: 10 mg Documented by: Ascorbic Acid (Ascorbic Acid 500 Mg Tablet) 500 mg PO DAILY PENDING SALE TO [facility] Last Admin: 03/29/20 08:17 Dose: 500 mg Documented by: Benzonatate (Benzonatate 100 Mg Capsule) 100 mg PO TID PENDING SALE TO [facility] Last Admin: 03/29/20 08:17 Dose: 100 mg Documented by: Carvedilol (Carvedilol 6.25 Mg Tablet) 6.25 mg PO BID PENDING SALE TO [facility] Last Admin: 03/29/20 08:17 Dose: 6.25 mg Documented by: Clonidine HCl (Clonidine 0.1 Mg Tablet) 0.1 mg PO Q12H PRN PRN Reason: SBP more than 170 Dexamethasone (Decadron) 6 mg IVP DAILY PENDING SALE TO [facility] Last Admin: 03/29/20 08:17 Dose: 6 mg Documented by: Duloxetine HCl (Cymbalta) 30 mg PO DAILY PENDING SALE TO [facility] Last Admin: 03/29/20 08:17 Dose: 30 mg Documented by: Enoxaparin Sodium (Enoxaparin 80 Mg/0.8 Ml Syringe) 70 mg SUBCUT Q12H PENDING SALE TO [facility] Last Admin: 03/29/20 05:00 Dose: 70 mg Documented by: Ferrous Gluconate (Ferrous Gluconate 324 Mg Tablet) 324 mg PO BIDWM PENDING SALE TO [facility] Last Admin: 03/29/20 08:17 Dose: 324 mg Documented by: Guaifenesin (Mucinex) 1,200 mg PO BID PENDING SALE TO [facility] Last Admin: 03/29/20 08:17 Dose: 1,200 mg Documented by: Hydroxyzine Pamoate (Vistaril) 25 mg PO ONCE PRN PRN Reason: ANXIETY Last Admin: 03/18/20 09:04 Dose: 25 mg Documented by: Labetalol HCl (Trandate) 10 mg IVP Q4H PRN PRN Reason: HYPERTENSION Last Admin: 03/18/20 03:26 Dose: 10 mg Documented by: Lanolin (Lanolin Oint 7 Gm) 1 applic TOPICAL PRN PRN PRN Reason: DRYNESS Last Admin: 03/23/20 17:34 Dose: 1 applic Documented by: Morphine Sulfate (Morphine 4 Mg/Ml Sdv 1 Ml) 1 mg IVP Q8H PRN PRN Reason: BREAKTHROUGH PAIN Last Admin: 03/28/20 19:39 Dose: 1 mg Documented by: Ondansetron HCl (Zofran) 4 mg IVP Q6H PRN PRN Reason: NAUSEA AND VOMITING Pantoprazole Sodium (Protonix) 40 mg PO BID PENDING SALE TO [facility] Last Admin: 03/29/20 08:17 Dose: 40 mg Documented by: Polyethylene Glycol (Miralax) 17 gm PO BEDTIME PENDING SALE TO [facility] Last Admin: 03/28/20 21:00 Dose: 17 gm Documented by: Fluticasone/Salmeterol (Fluticasone-Salmeterol 100-50 Diskus) 1 puff INHALATION BID.RESPIRATORY PENDING SALE TO [facility] Last Admin: 03/29/20 09:00 Dose: 1 puff Documented by: Tiotropium [place] (Spiriva) 18 mcg INHALATION DAILY.RESPIRATORY PENDING SALE TO [facility] Last Admin: 03/29/20 10:59 Dose: 1 puff Documented by: Tramadol HCl (Tramadol 50 Mg Tablet) 50 mg PO Q6H PRN PRN Reason: MODERATE PAIN Trazodone HCl (Trazodone 150 Mg Tablet) 150 mg PO BEDTIME PRN PRN Reason: SLEEP Last Admin: 03/28/20 21:00 Dose: 150 mg Documented by: Zinc Gluconate (Zinc Gluconate 50 Mg Tablet) 50 mg PO DAILY PENDING SALE TO [facility] Last Admin: 03/29/20 08:17 Dose: 50 mg Documented by: Discharge Plan Discharge Patient Disposition: er [facility] Condition: Stable Prescriptions: No Action albuterol sulfate 90 mcg/actuation HFA aerosol inhaler 2 puff INHALATION Q6H PRN (Reason: shortness of breath or wheezing) 30 Days Qty: 18 RF: 3 prednisone 5 mg tablet 20 mg PO DAILY RF: 0 Hold Instructions: Resume on 03/13/20. Prednisone 20 mg daily as prescribed. Once you complete this course continue with your previously prescribed 12.5 mg daily. Stiolto Respimat 2.5-2.5 mcg/actuation mist 2 puff INHALATION Q24H 30 Days Qty: 4 RF: 4 alprazolam 0.5 mg Tablet 0.5 mg PO TID PRN (Reason: unknown) RF: 0 hydrocodone-acetaminophen [Latimer] 7.5-325 mg Tablet 1 tab PO Q6H PRN (Reason: Pain) RF: 0 pantoprazole 40 mg Tablet,Delayed Release (Dr/Ec) 40 mg PO BID RF: 0 diphenhydramine-acetaminophen [Tylenol PM Extra Strength] 25-500 mg Tablet 1 tab PO BEDTIME PRN (Reason: Sleep) RF: 0 duloxetine [Cymbalta] 30 mg Capsule,Delayed Release(Dr/Ec) 30 mg PO DAILY RF: 0 polyethylene glycol 3350 17 gram powder in packet 17 g PO BEDTIME RF: 0 carvedilol 6.25 mg tablet 6.25 mg PO BID RF: 0 fluconazole 150 mg Tablet 150 mg PO DAILY RF: 0 cefuroxime axetil 500 mg Tablet 500 mg PO BID RF: 0 Referrals: Edwar Peres MD [Primary Care Provider] - Transfer Attestations Time Spent in Transfer Care*: critical care time Critical Care Time (min): 45 Quality Metrics Clinical Quality Measures: During this hospital stay, did patient experience: None Coding Level of Care Code Acute 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
[2020-03-29] MEDS: ALPRAZolam 0.25 mg Tablet 0.5 MG PO (15:39)
[2020-03-29] MEDS: apixaban 5 mg Tablet 2.5 MG PO (17:14)
== END 2020-03-29 18:41 | DRG 177 ==
LOC: ER 09:49 → ICU 11:57
PROVIDERS: Student in an Organized Health Care Education/Training Program; Admitting Provider Internal Medicine; Emergency Provider Family Medicine; PCP Family Medicine; Visit Provider Family Medicine
DX: U07.1 COVID-19 (principal); J12.89 Other viral pneumonia; J96.01 Acute respiratory failure with hypoxia; T83.89XA Other specified complication of genitourinary prosthetic devices, implants and grafts, initial encounter; Z99.81 Dependence on supplemental oxygen; J43.9 Emphysema, unspecified; I12.9 Hypertensive chronic kidney disease with stage 1 through stage 4 chronic kidney disease, or unspecified chronic kidney disease; N18.9 Chronic kidney disease, unspecified; Z96.0 Presence of urogenital implants; Y73.1 Therapeutic (nonsurgical) and rehabilitative gastroenterology and urology devices associated with adverse incidents; Z95.3 Presence of xenogenic heart valve; N30.21 Other chronic cystitis with hematuria; G89.29 Other chronic pain; M54.2 Cervicalgia; Z86.73 Personal history of transient ischemic attack (TIA), and cerebral infarction without residual deficits; E78.5 Hyperlipidemia, unspecified; K21.9 Gastro-esophageal reflux disease without esophagitis; M19.90 Unspecified osteoarthritis, unspecified site; I73.9 Peripheral vascular disease, unspecified; Z87.891 Personal history of nicotine dependence; M31.6 Other giant cell arteritis; Z66 Do not resuscitate; Z79.51 Long term (current) use of inhaled steroids; Z79.899 Other long term (current) drug therapy
CPT/HCPCS: 12345; 36415; 36430; 36600; 51702; 71045; 71275; 80051; 80053; 80061; 82330; 82550; 82728; 82803; 82805; 83036; 83540; 83550; 83605; 83615; 83735; 83880; 84100; 84145; 84443; 85014; 85018; 85025; 85049; 85378; 85384; 85730; 86140; 86403; 86850; 86900; 86920; 87449; 87641; 93005; 94640; 94660; 94669; 96372; 96375; 99283; J1100; J1644; J1650; J1940; J2270; J3490; J3535; P9016; Q9967